=== PATIENT | male | born 1940 | race Caucasian/White ===

== ENCOUNTER 2017-04-22 01:43 | Emergency (ER) | payer OTHER ==
[~2017-04-22] VITALS: Ht 175.3 cm; Wt 95.2 kg
[~2017-04-22 01:43] MED LIST: ACET-1256 PO; CLC100 PO; CMD5 PO; COEN10CA5 PO; DEXT30TA7 PO; ENOX0.8I8 SQ; NIAC250T8 PO; OMEG10007 PO; PRED1SUS3 OPB; PRLSR20 PO; PSYL55.43 PO; ZNTT/150 PO
[2017-04-22 01:47] VITALS: BP 166/96; PULSE 66; TEMP 36.3; O2SAT 96; Ht 175.3 cm; Wt 95.2 kg
--- NOTE | 2017-04-22 02:09 | EMERGENCY ROOM VISIT NOTE ---
History Report prepared by Ronak: Liv Issa Under the Supervision of: Dr. Jonas Cowan M.D. First contact with patient: 02:02 Chief Complaint: SKIN PROBLEM Stated Complaint: ITCHING History of Present Illness The patient is a 76 year old male who presents to the Emergency Room with complaints of a persistent rash on bilateral arms and legs starting about 3 days ago. He describes it to be a burning pain with itchiness to the rash sites. The rash started after he picked some raspberries. He was also taking care of his horse a few days ago. He has been applying anti-itch and calamine lotion without relief. He denies fevers, chills, chest pain, shortness of breath , or any other complaints. He does not have a history of diabetes. He is on Coumadin for a history of DVT. Source of History: patient Onset: about 3 days ago Position: arm (bilateral), leg (bilateral) Quality: burning, other (rash; itchiness) Timing: other (persistent) Modifying Factors (Relieving): other (anti-itch and calamine lotion without relief) Associated Symptoms: No fevers, No chills, No chest pain, No SOB Review of Systems See HPI for pertinent positives & negatives. A total of 6 systems reviewed and were otherwise negative. Past Medical & Surgical Medical Problems: (1) DVT (deep venous thrombosis) (2) Kidney donor Surgical Problems: (1) Hx of cholecystectomy Family History Stroke Social History Smoking Status: Never Smoker Alcohol Use: none Drug Use: none Marital Status: Occupation Status: employed Current/Historical Medications Scheduled Coenzyme Q10 (Ubidecarenone) (Co Q 10), 10 MG PO DAILY Docusate Sodium (Colace *), 100 MG PO BID Enoxaparin (Lovenox), 150 MG SQ Q24H Fish Oil (Delmar-3), 1 CAP PO BID Methylprednisolone (Medrol Dosepak), 1 PKT PO UD Niacin (Niacin), 250 MG PO DAILY Omeprazole (Prilosec), 20 MG PO DAILY Prednisolone Acetate 1% Oph (Pred Forte 1% Oph), 1 DROP OPB DAILY Psyllium (Metamucil Powder), 1 TBS PO DAILY Ranitidine (Zantac), 150 MG PO DAILY Warfarin Sod (Coumadin *), 5 MG PO DAILY UD Scheduled PRN Acetaminophen (Tylenol), 1,000 MG PO BID PRN for Fever Dextromethorphan-Guaifenesin (Mucinex Dm), 1-2 TABS PO BID PRN for PRN Allergies Coded Allergies: No Known Allergies (Verified , 04/22/17) Physical Exam Vital Signs Date Time Temp Pulse Resp B/P (MAP) Pulse Ox O2 Delivery O2 Flow Rate FiO2 04/22/17 01:47 36.3 66 20 166/96 96 Room Air Physical Exam GENERAL: Patient is well appearing and in no acute distress. HEENT: No acute trauma, normocephalic atraumatic, mucous membranes moist, no nasal congestion, no scleral icterus. NECK: No stridor, no adenopathy, no meningismus, trachea is midline. LUNGS: No dyspnea. Clear to auscultation and equal bilaterally. No wheeze, no rhonchi. HEART: Regular rate and rhythm. No murmurs, rubs, gallops appreciated. EXTREMITIES: Normal motion all extremities, no cyanosis, no edema. NEUROLOGIC: Alert and oriented, no acute motor or sensory deficits, no focal weakness, cranial nerves grossly intact. SKIN: No jaundice, no diaphoresis. Excoriations and dermatitis/bug bites with a few areas of blisters over exposed areas of arms and legs. No cellulitis appreciated. Also covered in calamine lotion. Medical Decision & Procedures Medications Administered Medications (Trade) Dose Ordered Sig/Johanna Route Start Time Stop Time Status Last Admin Dose Admin Prednisone (PredniSONE TAB) 60 mg NOW STAT PO 04/22/17 02:10 04/22/17 02:11 DC 04/22/17 02:20 60 MG Diphenhydramine HCl (Benadryl Cap) 50 mg NOW ONCE PO 04/22/17 02:15 04/22/17 02:16 DC 04/22/17 02:20 50 MG ED Course 0202: The patient was evaluated in room A11B. A complete history and physical exam was performed. 0210: Prednisone 60 mg PO 0215: Benadryl Cap 50 mg PO 0218: Reevaluated the patient. Discussed results and discharge instructions: He verbalized understanding and agreement. The patient is ready for discharge. Medical Decision Differential: Contact Dermatitis, Viral Exanthum, Urticaria, Allergic Reaction, SJS, Toxic Epidermal Necrolysis, Erythema Multiforme, Cellulitis, Scabies, HSV, Varicella, Zoster, Eczema, Staph Scalded Skin, Fungal, amongst other pathologies entertained. 76 yr old male with diffuse rash/itching over exposed portions of arms/legs after having been picking raspberries 3 days ago. Most likely this is chigger like bites as opposed to poison but with diffuse symptoms consistent with need for oral steroids. Benadryl given in addition to prednisone. Declines pain meds. No evidence of cellulitis at this time. Not consistent with hsv/zoster. Seems unlikely viral in nature nor allergic reaction. Medication Reconcilliation Current Medication List: was personally reviewed by me Blood Pressure Screening Patient's blood pressure: Elevated blood pressure Blood pressure disposition: Elevated BP felt to be situational Impression Primary Impression: Bug bites Additional Impression: Chigger bites Scribe Attestation The scribe's documentation has been prepared under my direction and personally reviewed by me in its entirety. I confirm that the note above accurately reflects all work, treatment, procedures, and medical decision making performed by me. Departure Information Dispostion Home / Self-Care Prescriptions Methylprednisolone (MEDROL DOSEPAK) 4 Mg Kevin 1 PKT PO UD for 6 Days, #1 PKT Prov: Jonas Cowan M.D. 04/22/17 Referrals Ventura Vaughn MD (PCP) Forms HOME CARE DOCUMENTATION FORM, IMPORTANT VISIT INFORMATION, WORK / SCHOOL INSTRUCTIONS Patient Instructions ED Bite Nia, My [facility] Problem Qualifiers
[2017-04-22] MEDS ORDERED: METH4PAK PO (02:13)
== END 2017-04-22 02:23 | disposition home or self-care (01) ==
LOC: C.EDB 01:44 → C.EDA 02:23
DX: S40.861A Insect bite (nonvenomous) of right upper arm, initial encounter (principal); S40.862A Insect bite (nonvenomous) of left upper arm, initial encounter; S80.861A Insect bite (nonvenomous), right lower leg, initial encounter; S80.862A Insect bite (nonvenomous), left lower leg, initial encounter; W57.XXXA Bitten or stung by nonvenomous insect and other nonvenomous arthropods, initial encounter; Z86.718 Personal history of other venous thrombosis and embolism; Z52.4 Kidney donor; Z90.49 Acquired absence of other specified parts of digestive tract; Z82.3 Family history of stroke; Z79.01 Long term (current) use of anticoagulants

== ENCOUNTER 2023-02-28 10:37 | Inpatient (IN) ==
[2023-02-28] MEDS ORDERED: ACETAMINOPHEN 1,000 MG/100 ML VIAL IV STA (11:44)
--- NOTE | 2023-02-28 11:51 | Emergency Department Note ---
Impression & Plan Bilateral knee pain, Subtherapeutic international normalized ratio (INR), Cellulitis, AVI (acute kidney injury) ED Provider Note ED Provider Note NAME: ROSARIO WHITAKER AGE:82 SEX: Male : 1940 ARRIVES VIA: Private vehicle INFORMANT: Patient ED PROVIDER(s): Maria Guadalupe Nevarez DO CHIEF COMPLAINT: Knee pain, low INR HPI: This is an 82-year-old male presents emergency department due to concern for persistent bilateral knee pain, right greater than left. Patient states he fell directly onto his knees 10 days ago, however at that time the left knee seemed worse. He states he did follow-up with orthopedics, who does want him to have an MRI for a possible PCL injury. He states in the interim he had been taking Tylenol and using Voltaren topically. Patient states he is also had swelling and ecchymosis as he does use Coumadin due to history of blood clots. He states he did follow-up with the Coumadin clinic today and his INR was subtherapeutic at 1.7. He is concerned for possible blood clot contributing to his pain. Patient states he has been icing his knees intermittently. He denies any coming chest pain, trouble breathing, headaches, fevers, abdominal pain, vomiting, change in urine or stools. Patient states he has pain with changing position although once he is up and moving the pain seems slightly improved. Patient is currently taking antibiotics as he was seen here over the weekend in an area that was concerning for possible abscess was drained, however found to be only blood. PAST MEDICAL HISTORY:See Below PAST SURGICAL HISTORY:See Below FAMILY HISTORY:See Below SOCIAL HISTORY:See Below HOME MEDICATIONS:See Below ALLERGIES:See Below VITALS:See Below PHYSICAL EXAMINATION: GENERAL: alert, well appearing, well nourished, no distress, non-toxic EYE EXAM: normal conjunctiva, PERRL and EOM's grossly intact NECK: supple, no nuchal rigidity, no adenopathy, non-tender LUNGS: Clear to auscultation. Normal chest wall mechanics, no w/r/r HEART: no murmurs, S1 normal and S2 normal ABDOMEN: abdomen soft, non-tender, normo-active bowel sounds, no masses, no rebound or guarding. SKIN: no rashes, petechiae, orbruising UPPER EXTREMITIES: upper extremities are grossly normal. FROM, nml pulses b/l. LOWER EXTREMITIES: b/l FROM despite edema/pain, nml pulses b/l. Bilateral edema/effusions noted at the knees, surrounding resolving ecchymosis as well as distal areas of ecchymosis near ankles most likely from recently described fall, erythema noted bilaterally although seems worse along the right knee with appearance of extension superiorly along the medial aspect, 1+ b/l LE edema. NEURO EXAM: Normal sensorium, cranial nerves II-XII grossly intact, normal s peech, no facial droop,nogross weakness of arms, no gross weakness of legs. Gross sensation intact. No ataxia. Vital Signs: reviewed and remarkable Differential Diagnosis: Fracture, subluxation, dislocation, contusion, ligamentous injury, neur ovascular, compartment syndrome, rhabdomyolysis, as well as other pathologies. MEDICAL DECISION MAKING: This is an 82-year-old male presents emergency room due to concern for persistent knee pain. Patient with recent fall 10 days prior. Was seen and evaluated here with aspiration of what they thought was an abscess but turned out to be hematoma. Patient is on Coumadin daily although today at his Coumadin clinic visit he was noted to be subtherapeutic at 1.7. Patient still with significant edema and appearance of likely cellulitis despite 48 hours of antibiotics as previously prescribed. Labs drawn and sent, IV established, patient sent for bilateral lower extremity Dopplers which were negative for acute DVT. Patient noted to have AVI, likely from the addition of Bactrim recently. Despite 48 hours of antibiotics, patient appeared to have cellulitis extending up the medial aspect of the right lower extremity superior to the right knee. Given patient with full range of motion without significant pain while at rest I would lower suspicion for occult septic arthritis although did discuss with him risks of this. We discussed failed improvement of his cellulitis despite 2 days of antibiotics. Patient denied fever, and has no significant leukocytosis. Patient given IV cefepime here as a precaution. Case discussed with hospitalist team for additional evaluation and management. Consultation(s): 1529: Discussed with Tigist Jarquin PA-C, [facility] hospitalist team. ER Treatment Provided: See below Diagnostics Interpreted By Me: -ECG: [] -Cardiac Monitoring: An order was placed for continuous cardiac monitoring. The monitor shows a rate of [] with [] rhythm. -Laboratory studies: As stated above and show below. -Imaging studies: [] Triage Nursing Note Reviewed Prior/Outside Records Reviewed -outpatient Ortho visit and x-ray reviewed Past Med/Surg History Medical History Chronic deep vein thrombosis (DVT) CKD (chronic kidney disease), stage III DVT (deep venous thrombosis) Dyslipidemia HTN (hypertension) Kidney donor TYESHA (obstructive sleep apnea) Surgical History H/O cornea transplant Hx of cholecystectomy Family History Other Heart disease Social History (Updated 02/28/23 @ 17:49 by Tigist Jarquin PA-C) Smoking Status: Never smoker Hx Alcohol Use: No Hx Substance Use: No Preferred Language: Kazakh Feels Safe at Home: Yes Allergies Allergies Allergy/AdvReac Type Severity Reaction Status Date / Time No Known Allergies Allergy Unknown Verified 02/25/23 16:15 Home Meds Home Medications Medication Instructions Recorded Confirmed acetaminophen 500 mg tablet 1,000 mg PO BID PRN PAIN/FEVER 02/25/23 02/28/23 (Tylenol Extra Strength) allopurinol 100 mg tablet 100 mg PO BID 02/25/23 02/28/23 amlodipine 2.5 mg tablet 2.5 mg PO DAILY 02/25/23 02/28/23 atorvastatin 10 mg tablet 10 mg PO DAILY 02/25/23 02/28/23 cholecalciferol (vitamin D3) 25 25 mcg PO Q OTHER DAY 02/25/23 02/28/23 mcg (1,000 unit) capsule (Vitamin D3) docusate sodium 50 mg capsule 50 mg PO DAILY 02/25/23 02/28/23 gabapentin 100 mg capsule 200 mg PO BID 02/25/23 02/28/23 losartan 25 mg tablet 25 mg PO DAILY 02/25/23 02/28/23 omega-3 fatty acids-fish oil 684 1 cap PO DAILY 02/25/23 02/28/23 mg-1,200 mg capsule,delayed release omeprazole 20 mg capsule,delayed 20 mg PO DAILYBB 02/25/23 02/28/23 release prednisolone acetate 1 % eye 1 drp OPB HS 02/25/23 02/28/23 drops,suspension psyllium husk 3.4 gram/5.4 gram 1 tbsp PO BID 02/25/23 02/28/23 oral powder (Metamucil) vitamin E 268 mg (400 unit) capsule 268 mg PO DAILY 02/25/23 02/28/23 warfarin 5 mg tablet See Rx Instructions .Route .COMPLEX 02/25/23 02/28/23 Previous Rx's Medication Instructions Recorded cephalexin 500 mg capsule 500 mg PO Q6H 10 days #40 caps 02/25/23 oxycodone 5 mg tablet 5 mg PO Q6H PRN pain #15 tabs 02/25/23 sulfamethoxazole 800 1 tab PO BID #20 tabs 02/25/23 mg-trimethoprim 160 mg tablet (Bactrim DS) Results & Data (ED) Vital Signs Vital Signs - 24 hr 02/28/23 10:56 02/28/23 11:33 02/28/23 15:02 Temperature 36.7 C Temperature Source Temporal Artery Scan Pulse Rate 94 H Pulse Rate [Finger] 82 80 Respiratory Rate 20 17 18 Respiratory Effort / Characteristics Non-Labored Spontaneous Respiratory Depth Normal Blood Pressure 137/82 Blood Pressure [Right Arm] 130/80 137/67 Blood Pressure Mean 100 Blood Pressure Mean [Right Arm] 96 90 Pulse Oximetry 94 93 92 Oxygen Delivery Method Room Air Room Air Room Air Sepsis New/Unexplained Change in Mental Status N/A Sepsis Action Taken by Nursing No Action Required Laboratory Data 02/28/23 12:41 02/28/23 12:41 Lab Results 02/28/23 02/28/23 02/28/23 Range/Units 12:41 12:41 12:41 WBC 6.88 (4.8-10.8) K/ul RBC 3.82 L (4.70-6.10) M/uL Hgb 11.3 L (14.0-18.0) g/dl Hct 33.4 L (42.0-52.0) % MCV 87.4 (80.0-100.0) fL MCH 29.6 (25.0-34.0) pg MCHC 33.8 (32.0-36.0) g/dL RDW Std Deviation 47.4 H (36.4-46.3) fL RDW Coeff of Oliva 14.7 H (11.5-14.5) % Plt Count 153 (130-400) K/uL MPV 9.9 (9.4-12.4) fL Immature Gran % (Auto) 0.6 % Neut % (Auto) 48.1 % Lymph % (Auto) 20.2 % [place] % (Auto) 30.5 % Eos % (Auto) 0.3 % Baso % (Auto) 0.3 % Neut # (Auto) 3.31 (1.40-6.50) K/uL Lymph # (Auto) 1.39 (1.2-3.4) K/uL [place] # (Auto) 2.10 H (0.11-0.59) K/uL Eos # (Auto) 0.02 (0-0.50) K/uL Baso # (Auto) 0.02 (0-0.2) K/uL Immature Gran # (Auto) 0.04 (0.01-0.20) K/uL ESR 36 H (0-20) mm/hr PT (9.0-12.0) Seconds INR (0.9-1.1) Sodium 133 L (136-145) mmol/L Potassium 4.6 (3.5-5.1) mmol/L Chloride 104 (98-107) mmol/L Carbon Dioxide 23 (21-32) mmol/L Anion Gap 6 (3-11) BUN 38 H (6-23) mg/dl Creatinine 1.75 H (0.6-1.4) mg/dl Est Cr Clr Drug Dosing 37.8 ml/min Est GFR ( Amer) 41.7 ml/min Est GFR (Non-Af Amer) 36.0 ml/min BUN/Creatinine Ratio 21.7 H (10-20) Glucose 102 H (70-99(Fasting)) mg/dl Calcium 8.3 L (8.6-10.3) mg/dl Total Bilirubin 0.7 (0.2-1.0) mg/dl AST 15 (13-39) U/L ALT 17 (7-52) U/L Alkaline Phosphatase 68 (34-104) U/L C-Reactive Protein 11.77 H (0-0.5) mg/dl Total Protein 6.5 (6.0-8.3) gm/dl Albumin 3.6 (3.4-5.0) gm/dl Globulin 2.9 (2.5-4.0) gm/dl Albumin/Globulin Ratio 1.2 (0.9-2) SARS-CoV-2, RNA, NAAT (NEGATIVE) 02/28/23 02/28/23 Range/Units 12:41 15:44 WBC (4.8-10.8) K/ul RBC (4.70-6.10) M/uL Hgb (14.0-18.0) g/dl Hct (42.0-52.0) % MCV (80.0-100.0) fL MCH (25.0-34.0) pg MCHC (32.0-36.0) g/dL RDW Std Deviation (36.4-46.3) fL RDW Coeff of Oliva (11.5-14.5) % Plt Count (130-400) K/uL MPV (9.4-12.4) fL Immature Gran % (Auto) % Neut % (Auto) % Lymph % (Auto) % [place] % (Auto) % Eos % (Auto) % Baso % (Auto) % Neut # (Auto) (1.40-6.50) K/uL Lymph # (Auto) (1.2-3.4) K/uL [place] # (Auto) (0.11-0.59) K/uL Eos # (Auto) (0-0.50) K/uL Baso # (Auto) (0-0.2) K/uL Immature Gran # (Auto) (0.01-0.20) K/uL ESR (0-20) mm/hr PT 18.2 H (9.0-12.0) Seconds INR 1.7 H (0.9-1.1) Sodium (136-145) mmol/L Potassium (3.5-5.1) mmol/L Chloride (98-107) mmol/L Carbon Dioxide (21-32) mmol/L Anion Gap (3-11) BUN (6-23) mg/dl Creatinine (0.6-1.4) mg/dl Est Cr Clr Drug Dosing ml/min Est GFR ( Amer) ml/min Est GFR (Non-Af Amer) ml/min BUN/Creatinine Ratio (10-20) Glucose (70-99(Fasting)) mg/dl Calcium (8.6-10.3) mg/dl Total Bilirubin (0.2-1.0) mg/dl AST (13-39) U/L ALT (7-52) U/L Alkaline Phosphatase (34-104) U/L C-Reactive Protein (0-0.5) mg/dl Total Protein (6.0-8.3) gm/dl Albumin (3.4-5.0) gm/dl Globulin (2.5-4.0) gm/dl Albumin/Globulin Ratio (0.9-2) SARS-CoV-2, RNA, NAAT NEGATIVE (NEGATIVE) Administered Medications Sodium Chloride (Nss 1000ml) 1,000 mls @ 100 mls/hr IV .Q10H UMM Stop: 03/01/23 00:33 Last Infusion: 02/28/23 19:11 Dose: 100 mls/hr Documented By: Infusion: 02/28/23 17:08 Dose: 0 mls/hr Documented By: Infusion: 02/28/23 16:02 Dose: 250 mls/hr Documented By: Admin: 02/28/23 14:48 Dose: Not Given Documented By: Admin: 02/28/23 12:07 Dose: 250 mls/hr Documented By: Discontinued Medications Acetaminophen (Ofirmev) 1,000 mg in 100 mls @ 400 mls/hr IV NOW STA Stop: 02/28/23 11:58 Last Infusion: 02/28/23 12:27 Dose: 0 mls/hr Documented By: Admin: 02/28/23 12:07 Dose: 400 mls/hr Documented By: Cefepime HCl (Maxipime) 2,000 mg in 20 mls @ 5 mls/min IV NOW STA; Protocol Stop: 02/28/23 15:13 Last Admin: 02/28/23 15:43 Dose: 5 mls/min Documented By: Imaging Data Radiologist's Impression: Venous Doppler Study 02/28/23 11:44 ULTRASOUND BILATERAL LOWER EXTREMITY VENOUS CLINICAL HISTORY: Lower extremity pain and edema COMPARISON STUDY: Left lower extremity venous ultrasound dated 02/25/2023. TECHNIQUE: Real-time, grayscale, and color Doppler sonography of the deep veins of the right and left lower extremity was performed from the inguinal crease to the calf. Compression and augmentation were utilized. FINDINGS: Right lower extremity: There is trace chronic thrombus in the proximal right superficial femoral vein. The common femoral, superficial femoral, and popliteal veins are otherwise patent and normally compressible. The greater saphenous vein and the profunda femoris vein at the junction with the common femoral vein are clear. The visualized calf veins are patent. Left lower extremity: There is no sonographic evidence of deep venous thrombosis in the left lower extremity. The common femoral, superficial femoral, and popliteal veins are patent and normally compressible. The greater saphenous vein and the profunda femoris vein at the junction with the common femoral vein are clear. The visualized calf veins are patent. Soft tissue edema is present in both calves. An indeterminate complex hypoechoic collection in the soft tissues of the medial left knee is similar to previous. This measures 6.8 x 2.1 x 5.1 cm. No internal flow was shown on color imaging. IMPRESSION: 1. There is no sonographic evidence of acute deep venous thrombosis in the right or left lower extremity. 2. Trace chronic thrombus is seen in the right superficial femoral vein. 3. Lower extremity edema. 4. A 6.8 cm complex hypoechoic nonvascular collection in the soft tissues medial to the left patella is similar to the 02/25/2023 examination. This likely represents a hematoma. Clinical correlation will be essential and clinical follow-up to resolution will be required ACT 112: Negative or not required by law. Electronically signed by: Jose Vides M.D. 02/28/2023 2:36 PM Discharge Plan Visit Data Chief Complaint: Leg Injury/Pain Stated Complaint: LEG PAIN IN LEFT AND RIGHT ED Provider: Maria Guadalupe Nevarez Discharge Problem: Bilateral knee pain, Subtherapeutic international normalized ratio (INR), Cellulitis, AVI (acute kidney injury) Patient Disposition: Admitted As Inpatient Discharge Instructions Interventions: ED Discharge Assessment Last Done: 02/28/23 18:56
[2023-02-28] MEDS: SODIUM CHLORIDE 0.9% 1000ML 1,000 ML IV SCH ×2 (12:07→14:48)
[2023-02-28 13:19] LABS: Basophils # (auto) 0.02 K/uL (0-0.2); Basophils % (auto) 0.3 %; Eosinophils # (auto) 0.02 K/uL (0-0.50); Eosinophils % (auto) 0.3 %; Hematocrit (blood only) 33.4 % (42.0-52.0); Hemoglobin 11.3 g/dl (14.0-18.0); Immature Granulocytes # (auto) 0.04 K/uL (0.01-0.20); Immature Granulocytes % (auto) 0.6 %; Lymphocytes # (auto) 1.39 K/uL (1.2-3.4); Lymphocytes % (auto) 20.2 %; Mean Corpuscular Hemoglobin 29.6 pg (25.0-34.0); Mean Corpuscular Hgb Conc 33.8 g/dL (32.0-36.0); Mean Corpuscular Volume 87.4 fL (80.0-100.0); Mean Platelet Volume 9.9 fL (9.4-12.4); Monocytes % (auto) 30.5 %; Neutrophils # (auto) 3.31 K/uL (1.40-6.50); Neutrophils % (auto) 48.1 %; Platelet Count 153 K/uL (130-400); RDW Coefficient of Variation 14.7 % (11.5-14.5); RDW Standard Deviation 47.4 fL (36.4-46.3); Red Blood Count 3.82 M/uL (4.70-6.10); White Blood Count 6.88 K/ul (4.8-10.8)
[2023-02-28 13:31] LABS: Albumin Globulin Ratio 1.2 (0.9-2); Albumin Level 3.6 gm/dl (3.4-5.0); BUN Creatinine Ratio 21.7 (10-20); Bilirubin,Total 0.7 mg/dl (0.2-1.0); C Reactive Protein 11.77 mg/dl (0-0.5); Calcium 8.3 mg/dl (8.6-10.3); Creatinine Clr Calc Pharmacy 37.8 ml/min; Est GFR (African American) 41.7 ml/min; Globulin 2.9 gm/dl (2.5-4.0); Potassium 4.6 mmol/L (3.5-5.1); Total Protein 6.5 gm/dl (6.0-8.3)
[2023-02-28 13:39] LABS: INR 1.7 (0.9-1.1); Prothrombin Time 18.2 Seconds (9.0-12.0)
--- NOTE | 2023-02-28 14:37 | Ultrasound Report ---
ULTRASOUND BILATERAL LOWER EXTREMITY VENOUS CLINICAL HISTORY: Lower extremity pain and edema COMPARISON STUDY: Left lower extremity venous ultrasound dated 02/25/2023. TECHNIQUE: Real-time, grayscale, and color Doppler sonography of the deep veins of the right and left lower extremity was performed from the inguinal crease to the calf. Compression and augmentation wer e utilized. FINDINGS: Right lower extremity: There is trace chronic thrombus in the proximal right superficial femoral vein . The common femoral, superficial femoral, and popliteal veins are otherwise patent and normally comp ressible. The greater saphenous vein and the profunda femoris vein at the junction with the common fe moral vein are clear. The visualized calf veins are patent. Left lower extremity: There is no sonographic evidence of deep venous thrombosis in the left lower ex tremity. The common femoral, superficial femoral, and popliteal veins are patent and normally chris sible. The greater saphenous vein and the profunda femoris vein at the junction with the common femor al vein are clear. The visualized calf veins are patent. Soft tissue edema is present in both calves. An indeterminate complex hypoechoic collection in the so ft tissues of the medial left knee is similar to previous. This measures 6.8 x 2.1 x 5.1 cm. No inter nal flow was shown on color imaging. IMPRESSION: 1. There is no sonographic evidence of acute deep venous thrombosis in the right or left lower extrem ity. 2. Trace chronic thrombus is seen in the right superficial femoral vein. 3. Lower extremity edema. 4. A 6.8 cm complex hypoechoic nonvascular collection in the soft tissues medial to the left patella is similar to the 02/25/2023 examination. This likely represents a hematoma. Clinical correlation will be essential and clinical follow-up to resolution will be required ACT 112: Negative or not required by law. Electronically signed by: Jose Vides M.D. 02/28/2023 2:36 PM
[2023-02-28] MEDS ORDERED: CEFEPIME 2,000 MG/20 ML VIAL IV STA (15:10)
[2023-02-28] MEDS ORDERED: VANCOMYCIN CONSULT ACTIVE PRN (16:32)
--- NOTE | 2023-02-28 16:57 | History & Physical Report ---
Date of Service February 28, 2023 Assessment & Plan (1) Hematoma of left knee region: (2) Bilateral knee pain: (3) Cellulitis: (4) Chronic deep vein thrombosis (DVT): (5) Subtherapeutic international normalized ratio (INR): (6) Acute kidney injury superimposed on chronic kidney disease: (7) HTN (hypertension): (8) TYESHA (obstructive sleep apnea): (9) Acute blood loss anemia: Plan This is an 82-year-old male with PMH of history of DVT on Coumadin, CKD 3, acquired solitary kidney, hypertension, first-degree AV block, gout, hyperlipidemia, sleep apnea on CPAP and other medical problems listed below who presents with ongoing pain and swelling of both knees. Hemarthrosis of bilateral knees BLE cellulitis Worsening swelling and pain despite PO abx, icing ESR and CRP elevation, no leukocytosis, no e/o DVT on venous doppler Concern for hemarthrosis and septic joint although clinically stable, does not meet sepsis criteria Obtained blood cx, continue abx coverage with rocephin, vanco Additional imaging is needed - anticipate improvement of renal function overnight prior to imaging with contrast dye Ortho service consulted Will make NPO at midnight in case washout needed Hold coumadin for now Fall precautions PT/OT evaluation Acute kidney injury superimposed on CKD Cr 1.75 (baseline ~ low 1s) Likely 2/2 Bactrim, keflex. Appears euvolemic Hold PO abx and losartan. 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 Hold coumadin for now until ortho evaluates HTN Normotensive. Continue amlodipine, holding losartan TYESHA CPAP HS DVT Ppx: holding coumadin for now Code status: FULL PCP: Johana Dispo: Admitted to med/surg Patient seen in collaboration with Dr. Dee. Please see addendum. I spent a total of 75 minutes coordinating, documenting, and providing care for this patient excluding time spent in the performance of separately billed services. History of Present Illness Chief Complaint: Knee pain, swelling Primary Care Provider: Ventura Vaughn MD This is an 82-year-old male with PMH of history of DVT on Coumadin, CKD 3, acquired solitary kidney, hypertension, first-degree AV block, gout, hyperlipidemia, sleep apnea on CPAP and other medical problems listed below who presents with ongoing pain and swelling of both knees. Patient had a fall on 02/18 and landed on both knees on concrete. Was seen in outpatient setting by [facility] orthopedics, who feel left injury may have resulted in possible PCL rupture and has an MRI scheduled in a few weeks to confirm PCL injury. Small hematoma noted and instructed to continue ice and Voltaren gel. Pain and swelling persisted despite patient following this regimen, so he presented to ED on 02/25 and had a joint aspiration performed by ED physician that was only consistent with hematoma and not purulent material, per chart review. Was discharged home on antibiotic course of Keflex and Bactrim for possible mirian lulitis but pain and swelling have persisted and even worsened, so returning to ED today. Pain is most severe with positional change such as lying to sitting or when he steps out of bed and places weight on both extremities. States that once he gets moving, pain is not very severe with ambulation any is still able to bend his knees without much issue. Taking Coumadin for over 20 years for history of DVT. Was seen by anticoagulation clinic this morning, who wanted to continue his current dose schedule of 2.5 on Monday and 5 every other day. Denies any fever, chills, lightheadedness, chest pain, shortness of breath, nausea, vomiting, abdominal pain, dysuria, diarrhea or constipation. Allergies Allergy/AdvReac Type Severity Reaction Status Date / Time No Known Allergies Allergy Unknown Verified 02/25/23 16:15 Home Medications Medication Instructions Recorded Confirmed Type acetaminophen 500 mg tablet 1,000 mg PO BID PRN PAIN/FEVER 02/25/23 02/28/23 History (Tylenol Extra Strength) allopurinol 100 mg tablet 100 mg PO BID 02/25/23 02/28/23 History amlodipine 2.5 mg tablet 2.5 mg PO DAILY 02/25/23 02/28/23 History atorvastatin 10 mg tablet 10 mg PO DAILY 02/25/23 02/28/23 History cephalexin 500 mg capsule 500 mg PO Q6H 10 days #40 caps 02/25/23 02/28/23 Rx cholecalciferol (vitamin D3) 25 25 mcg PO Q OTHER DAY 02/25/23 02/28/23 History mcg (1,000 unit) capsule (Vitamin D3) docusate sodium 50 mg capsule 50 mg PO DAILY 02/25/23 02/28/23 History gabapentin 100 mg capsule 200 mg PO BID 02/25/23 02/28/23 History losartan 25 mg tablet 25 mg PO DAILY 02/25/23 02/28/23 History omega-3 fatty acids-fish oil 684 1 cap PO DAILY 02/25/23 02/28/23 History mg-1,200 mg capsule,delayed release omeprazole 20 mg capsule,delayed 20 mg PO DAILYBB 02/25/23 02/28/23 History release oxycodone 5 mg tablet 5 mg PO Q6H PRN pain #15 tabs 02/25/23 02/28/23 Rx prednisolone acetate 1 % eye 1 drp OPB HS 02/25/23 02/28/23 History drops,suspension psyllium husk 3.4 gram/5.4 gram 1 tbsp PO BID 02/25/23 02/28/23 History oral powder (Metamucil) sulfamethoxazole 800 1 tab PO BID #20 tabs 02/25/23 02/28/23 Rx mg-trimethoprim 160 mg tablet (Bactrim DS) vitamin E 268 mg (400 unit) capsule 268 mg PO DAILY 02/25/23 02/28/23 History warfarin 5 mg tablet See Rx Instructions .Route .COMPLEX 02/25/23 02/28/23 History Past Med/Surg History Medical History Chronic deep vein thrombosis (DVT) CKD (chronic kidney disease), stage III DVT (deep venous thrombosis) Dyslipidemia HTN (hypertension) Kidney donor TYESHA (obstructive sleep apnea) Surgical History H/O cornea transplant Hx of cholecystectomy Family History Other Heart disease Social History (Updated 02/28/23 @ 17:49 by Tigist Jarquin PA-C) Smoking Status: Never smoker Do You Dip or Chew Tobacco: No; Hx Alcohol Use: No Hx Substance Use: No Preferred Language: Mongolian Communication Ability: Effective Dance Critic Required: No Beliefs That Will Affect Care: None Current Living Situation: Significant Other Other Information That Helps Us Care for You: No Feels Safe at Home: Yes Safety Concerns: Feels Safe At This Time Assistive Devices: Hearing Aid - Bilateral Review of Systems Review of Systems: At least ten systems reviewed and negative except as noted in the HPI. Physical Exam Physical Exam: General Appearance: WD/WN, vitals as above, NAD, sitting up in bed, pleasant, conversing easily Head: normocephalic, atraumatic Eyes: normal inspection, PERRL, conjunctivae normal, anicteric sclerae ENT: external ear and nose normal, oropharynx normal Neck: normal visual inspection, trachea midline, no thyromegaly Respiratory: normal respiratory effort, lungs clear to auscultation, no wheeze, rales, rhonchi. No accessory muscle use Cardiovascular: regular rate, rhythm, no murmur, normal peripheral pulses, no BLE edema. Vessels: no JVD Chest: normal inspection of chest Abdomen/GI: normal bowel sounds, soft, nontender, no hepatosplenomegaly Extremities/Musculoskeletal: no cyanosis or clubbing, extremities motor strength 5/5 + Bilateral knees with edema, TTP with hematomas overlying patella. Erythematous streaking over knee and extending proximally to thigh, warm to touch Neurologic: PERRL, EOMI, accommodation nl, no face palsy, no dysarthria, CN's II-XI intact bilaterally and moves all extremities Psychiatric: A+Ox3, euthymic affect Skin: no rashes, normal color, warm/dry Results & Data Results & Data Vital Signs (Past 12 Hours) Vital Signs Temp Pulse Pulse Resp BP BP Pulse Ox 02/28/23 15:02 80 18 137/67 92 02/28/23 11:33 82 17 130/80 93 02/28/23 10:56 36.7 C 94 H 20 137/82 94 O2 Del Method 02/28/23 15:02 Room Air 02/28/23 11:33 Room Air 02/28/23 10:56 Room Air Laboratory Results Short CBC 02/28/23 Range/Units 12:41 WBC 6.88 (4.8-10.8) K/ul Hgb 11.3 L (14.0-18.0) g/dl Hct 33.4 L (42.0-52.0) % Plt Count 153 (130-400) K/uL BMP 02/28/23 12:41 Sodium 133 L Potassium 4.6 Chloride 104 Carbon Dioxide 23 BUN 38 H Creatinine 1.75 H Glucose 102 H Calcium 8.3 L Liver Function 02/28/23 Range/Units 12:41 Total Bilirubin 0.7 (0.2-1.0) mg/dl AST 15 (13-39) U/L ALT 17 (7-52) U/L Alkaline Phosphatase 68 (34-104) U/L Albumin 3.6 (3.4-5.0) gm/dl Diagnostic Findings Venous Doppler Study 02/28/23 11:44 ULTRASOUND BILATERAL LOWER EXTREMITY VENOUS CLINICAL HISTORY: Lower extremity pain and edema COMPARISON STUDY: Left lower extremity venous ultrasound dated 02/25/2023. TECHNIQUE: Real-time, grayscale, and color Doppler sonography of the deep veins of the right and left lower extremity was performed from the inguinal crease to the calf. Compression and augmentation were utilized. FINDINGS: Right lower extremity: There is trace chronic thrombus in the proximal right superficial femoral vein. The common femoral, superficial femoral, and popliteal veins are otherwise patent and normally compressible. The greater saphenous vein and the profunda femoris vein at the junction with the common femoral vein are clear. The visualized calf veins are patent. Left lower extremity: There is no sonographic evidence of deep venous thrombosis in the left lower extremity. The common femoral, superficial femoral, and popliteal veins are patent and normally compressible. The greater saphenous vein and the profunda femoris vein at the junction with the common femoral vein are clear. The visualized calf veins are patent. Soft tissue edema is present in both calves. An indeterminate complex hypoechoic collection in the soft tissues of the medial left knee is similar to previous. This measures 6.8 x 2.1 x 5.1 cm. No internal flow was shown on color imaging. IMPRESSION: 1. There is no sonographic evidence of acute deep venous thrombosis in the right or left lower extremity. 2. Trace chronic thrombus is seen in the right superficial femoral vein. 3. Lower extremity edema. 4. A 6.8 cm complex hypoechoic nonvascular collection in the soft tissues medial to the left patella is similar to the 02/25/2023 examination. This likely represents a hematoma. Clinical correlation will be essential and clinical follow-up to resolution will be required ACT 112: Negative or not required by law. Electronically signed by: Jose Vides M.D. 02/28/2023 2:36 PM Code Status & VTE Plan VTE Prophylaxis Plan VTE Prophylaxis will be ordered: Yes Supervising Physician Co-Signing Physician Notes I have seen and examined the patient and have discussed the case with the provider above. I agree with the assessment and plan as stated. 82 yo M on Coumadin with a traumatic injury to his knees presents with increased pain and redness to his knees bilaterally. As noted above, he was initially seen by ortho who felt he had a PCL injury, however, he presented to the ER on 02/25 after persistent pain and swelling. Joint aspiration performed at that time and he was sent home on Keflex and Bactrim. He returns after failing outpatient therapy, now with increased redness and warmth around the L>R knee. On physical he is not septic appearing and pain is fairly well controlled. He has good ROM of the knees bilaterally. There is erythema streaking proximal and medial to the knee and up the leg. The left knee anteriorly has what appears to be a swelling, possibly consistent with a hematoma. There is stiffness and pain with knee flexion on the left but both knees are affected and swollen. Physical exam otherwise as stated above. No overt leukocytosis with anemia (11.3/33.4) dropping 2 grams Hb in the past 3 days, and INR is within the therapeutic window. 1. Hemarthosis of the left knee, and possibly the right with overlying cellulitis and bilateral knee pain 2. 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 Acute on chronic CKD 4. Acute blood loss anemia related to warfarin use Overall trauma to the knees with resultant hemarthosis seen on joint aspiration 3 days ago, now with a two gram drop in Hb and increased pain swelling and cellulitis refractory to outpatient antibiotic. Bactrim is likely contributing to elevated creatinine. Given normal saline. Started on vancomycin and Rocephin and blood cultures are pending. Orthopedics has been consulted. Will trend CBC and BMP in am. Cont pain control efforts and ultimately he will need to be evaluated by therapy. He has a chronic DVT and takes Coumadin indefinitely, but with ongoing acute blood loss anemia, we will hold anticoagulation and monitor. DO Luiz
[2023-02-28] MEDS ORDERED: POLYETHYLENE (MIRALAX) 17 GM PACK PO PRN (18:58)
[2023-02-28] MEDS ORDERED: ONDANSETRON INJ 2 MG/ML 2 ML VIAL IV PRN (18:58)
[2023-02-28] MEDS ORDERED: oxyCODONE HCL IR 5 MG TAB (IMMEDIATE RELEASE) PO PRN (18:58)
[2023-02-28] MEDS ORDERED: VANCOMYCIN HCL 2,250 MG in SODIUM CHLORIDE 0.9% 500 ML IV STA (19:02)
--- NOTE | 2023-02-28 19:40 | Pharmacy Report ---
Pharmacy PK ABX Note - Date of Service February 28, 2023 - Assessment and Plan Assessment 82 year old M receiving IV Vancomycin and ceftriaxone for treatment of BLE cellulitis, hemarthrosis. Day # 1 of antimicrobial therapy. Plan Vancomycin * Loading dose: 2250 mg (~24mg/kg) IV x 1 * No maintenance dose ordered at this time due to AVI; anticipate rapidly changing renal function * Random level ordered for: 03/01/23 with AM labs Pharmacy will continue to follow and will adjust dose/frequency as necessary. Thank you. Pharmacy has transitioned to AUC monitoring for vancomycin. AUC/GERARDO is the preferred PK/PD target and is associated with decreased risk of nephrotoxicity compared to traditional trough targets.
[2023-02-28] MEDS: allopurinoL 100 MG TAB PO SCH (21:22)
[2023-02-28] MEDS: GABAPENTIN 100 MG CAP PO SCH (21:22)
[2023-02-28] MEDS: prednisoLONE acetate 1% OP SUSP 5 ML BTL OPB SCH (21:22)
[2023-02-28] MEDS: ACETAMINOPHEN 325 MG TAB PO PRN (21:39)
[2023-02-28] MEDS: cefTRIAXone SODIUM 2,000 MG in DEXTROSE 5% 50 ML IV SCH (23:15)
[2023-03-01] MEDS: ACETAMINOPHEN 325 MG TAB PO PRN ×2 (01:32→09:03)
[2023-03-01] MEDS: PANTOprazole 40 MG TAB PO SCH (05:41)
[2023-03-01 07:50] LABS: Hematocrit (blood only) 35.3 % (42.0-52.0); Hemoglobin 11.7 g/dl (14.0-18.0); Mean Corpuscular Hemoglobin 28.9 pg (25.0-34.0); Mean Corpuscular Hgb Conc 33.1 g/dL (32.0-36.0); Mean Corpuscular Volume 87.2 fL (80.0-100.0); Mean Platelet Volume 9.7 fL (9.4-12.4); Platelet Count 170 K/uL (130-400); RDW Coefficient of Variation 14.6 % (11.5-14.5); RDW Standard Deviation 47.3 fL (36.4-46.3); Red Blood Count 4.05 M/uL (4.70-6.10); White Blood Count 6.38 K/ul (4.8-10.8)
[2023-03-01 08:00] LABS: INR 1.6 (0.9-1.1); Prothrombin Time 16.6 Seconds (9.0-12.0)
[2023-03-01] MEDS: allopurinoL 100 MG TAB PO SCH ×2 (08:11→20:08)
[2023-03-01] MEDS: GABAPENTIN 100 MG CAP PO SCH ×2 (08:11→20:08)
[2023-03-01] MEDS: amLODIPine BESYLATE 5 MG TAB PO SCH (08:11)
[2023-03-01] MEDS: DOCUSATE SODIUM 100 MG CAP PO SCH (08:11)
[2023-03-01] MEDS: ATORVASTATIN 10 MG TAB PO SCH (08:11)
[2023-03-01 08:12] LABS: Calcium 8.7 mg/dl (8.6-10.3); Potassium 4.3 mmol/L (3.5-5.1)
[2023-03-01] MEDS: TOCOPHERYL, DL-ALPHA 400 UNITS 180 MG CAP PO SCH (08:13)
[2023-03-01 08:18] LABS: BUN Creatinine Ratio 19.4 (10-20); Creatinine Clr Calc Pharmacy 41.4 ml/min; Est GFR (African American) 46.5 ml/min; Est GFR (Non-African American) 40.1 ml/min
--- NOTE | 2023-03-01 08:47 | Pharmacy Report ---
Pharmacy PK ABX Note - Date of Service March 01, 2023 - Assessment and Plan Laboratory Tests 02/25/23 02/28/23 03/01/23 14:58 12:41 07:14 Creatinine 1.15 1.75 H 1.60 H Assessment 82 year old M receiving IV Vancomycin and ceftriaxone for treatment of BLE cellulitis, hemarthrosis. WBC wnl, afebrile, blood cultures pending. Day # 2 of antimicrobial therapy. Plan Vancomycin * Current regimen: 2250mg mg IV x 1 dose @ 02/28 * Random level obtained this AM resulted as 12.3 mcg/mL. * SCr improved from 1.75 --> 1.6, baseline 1.1 * Begin Vancomycin 1250mg IV Q24 hours at this time. * Predicted AUC at steady state: 540 mg/L.hr * Repeat random level ordered for: 03/02/23 due to AVI; anticipate rapidly changing renal function Pharmacy will continue to follow and will adjust dose/frequency as necessary. Thank you. Pharmacy has transitioned to AUC monitoring for vancomycin. AUC/GERARDO is the preferred PK/PD target and is associated with decreased risk of nephrotoxicity compared to traditional trough targets.
[2023-03-01] MEDS ORDERED: VANCOMYCIN HCL 1,250 MG in SODIUM CHLORIDE 0.9% 250 ML IV SCH (09:00)
[2023-03-01] MEDS ORDERED: CHOLECALCIFEROL 1,000 UNITS 25 MCG TAB PO SCH (09:00)
--- NOTE | 2023-03-01 10:15 | Orthopedic Consultation ---
Date of Consultation March 01, 2023 Assessment & Plan (1) Hematoma of left knee region: With his permission the area of swelling on the medial left knee as well as the pretibial right knee were prepped with alcohol and then using separate syringes and preparations the areas were aspirated. I did the one on the left and Audrey Rubio did 1 on the right. Audrey aspirated 1 cc of blood from the right knee pretibial area and I got a drop of blood from the left knee medial area. There was no purulence noted pressure was held until the bleeding had stopped. Labs are noted. He is afebrile. Inflammatory markers are elevated. The eschar on the right knee was elevated. Benign underneath with granulating tissue. Band-Aids were applied. I suspect that he has bilateral knee hematomas secondary to his fall with resultant inflammation. There could be some early cellulitis. He reports being on an oral antibiotics since Monday. He is on IV antibiotics here. He does not have septic arthritis and there is no abscesses needed to be drained. These are hematomas. This should get better on their own and we can aspirate them later as an outpatient if necessary. He may be up as tolerated. Weight-bear as tolerated. Elevate both legs apply compression socks. Will monitor. He may eat. Check x-rays of right knee. Left knee x-rays are negative there is no fracture. Report is noted he has no intra-articular effusion there is some soft tissue swelling noted. No need for surgical intervention at this time. Given kidney status and dysfunction would avoid NSAIDs at this time. Tylenol ice elevation. (2) Hematoma of right knee region: History of Present Illness Attending Physician: Marianna Dee DO History of Present Illness Richi is 82.He fell February 18 on both knees from standing height. He was seen by Vasile Macdonald at [facility] outpatient. He reports having x-rays done and was told he may have sprained the knee ligament. An MRI was ordered. Since then he has developed progressive redness swelling pain and bruising involving the front of his knees as well as down the legs to the ankles. It hurts worse when he goes from sitting to standing. It hurts to stand but he is feels better when he is laying or walking. At rest he does not have any pain. He was into the ER on Monday and they aspirated some fluid from the left knee area and placed him on Bactrim. He came back yesterday and was admitted to the hospital. He denies any tingling or numbness. There is been no prior history of knee injuries or problems. Bruising and swelling appeared a couple days after his injury. He denies fever at home Allergies Allergy/AdvReac Type Severity Reaction Status Date / Time No Known Allergies Allergy Unknown Verified 02/25/23 16:15 Home Medications Medication Instructions Recorded Confirmed Type acetaminophen 500 mg tablet 1,000 mg PO BID PRN PAIN/FEVER 02/25/23 02/28/23 History (Tylenol Extra Strength) allopurinol 100 mg tablet 100 mg PO BID 02/25/23 02/28/23 History amlodipine 2.5 mg tablet 2.5 mg PO DAILY 02/25/23 02/28/23 History atorvastatin 10 mg tablet 10 mg PO DAILY 02/25/23 02/28/23 History cephalexin 500 mg capsule 500 mg PO Q6H 10 days #40 caps 02/25/23 02/28/23 Rx cholecalciferol (vitamin D3) 25 25 mcg PO Q OTHER DAY 02/25/23 02/28/23 History mcg (1,000 unit) capsule (Vitamin D3) docusate sodium 50 mg capsule 50 mg PO DAILY 02/25/23 02/28/23 History gabapentin 100 mg capsule 200 mg PO BID 02/25/23 02/28/23 History losartan 25 mg tablet 25 mg PO DAILY 02/25/23 02/28/23 History omega-3 fatty acids-fish oil 684 1 cap PO DAILY 02/25/23 02/28/23 History mg-1,200 mg capsule,delayed release omeprazole 20 mg capsule,delayed 20 mg PO DAILYBB 02/25/23 02/28/23 History release oxycodone 5 mg tablet 5 mg PO Q6H PRN pain #15 tabs 02/25/23 02/28/23 Rx prednisolone acetate 1 % eye 1 drp OPB HS 02/25/23 02/28/23 History drops,suspension psyllium husk 3.4 gram/5.4 gram 1 tbsp PO BID 02/25/23 02/28/23 History oral powder (Metamucil) sulfamethoxazole 800 1 tab PO BID #20 tabs 02/25/23 02/28/23 Rx mg-trimethoprim 160 mg tablet (Bactrim DS) vitamin E 268 mg (400 unit) capsule 268 mg PO DAILY 02/25/23 02/28/23 History warfarin 5 mg tablet See Rx Instructions .Route .COMPLEX 02/25/23 02/28/23 History Patient History Medical History Chronic deep vein thrombosis (DVT) CKD (chronic kidney disease), stage III DVT (deep venous thrombosis) Dyslipidemia HTN (hypertension) Kidney donor TYESHA (obstructive sleep apnea) Surgical History H/O cornea transplant Hx of cholecystectomy Family History Other Heart disease Social History (Updated 02/28/23 @ 17:49 by Tigist Jarquin PA-C) Smoking Status: Never smoker Do You Dip or Chew Tobacco: No; Hx Alcohol Use: No Hx Substance Use: No Preferred Language: [place] Communication Ability: Effective Casino Porter Required: No Beliefs That Will Affect Care: None Current Living Situation: Significant Other Other Information That Helps Us Care for You: No Feels Safe at Home: Yes Safety Concerns: Feels Safe At This Time Assistive Devices: Hearing Aid - Bilateral Review of Systems Review of Systems: He has had gout before. Positive for DVT. On Coumadin. No notable neurological disease. He does have high blood pressure. No bleeding problems. No history of infections. All others noncontributory. Physical Exam Physical Exam: He is able to arise out of bed independently and ambulate without difficulty and without limping. Sensation intact both lower extremities with 1+ DP and PT pulses. Motor strength to ankle and toe plantarflexion dorsiflexion inversion eversion as well as knee flexion and extension are all graded 5 out of 5. There is full movement of the toes ankle and knees without significant difficulty. Good movement of the hips. There is 1-2+ pretibial edema bilaterally with some skin wrinkles in place. Bluish ecchymosis around the ankles and also into the posterior leg area. Mild erythema of both lower leg areas with some tenderness to palpation superficially. Right knee exam shows half centimeter eschar over the tibial tubercle with a small fluid collection superficial to the patellar tendon and tibial tubercle. There is no intra-articular effusion. Range of motion 0 to 125 degrees of flexion with intact cruciates and collaterals. Tenderness around the upper tibia area to palpation but nothing with weightbearing. Left knee exam shows a fluid collection adjacent to the medial joint area about 3 to 4 cm in diameter. Both legs show intact extensor mechanism with straight leg raises intact and normal knees to extension strength. Cruciates and collaterals are intact on the left knee and there is no intra-articular effusion. There is mild tenderness to palpation over the medial knee joint where the fluid collection is localized. Mild erythema over both fluid collection areas no drainage or purulence. Results & Data Vital Signs (Past 12 Hours) Vital Signs Temp Pulse Resp BP Pulse Ox O2 Del Method 03/01/23 07:52 36.3 C L 69 17 150/74 H 94 Room Air Laboratory Results Laboratory Results WBC 6.38 K/ul (4.8-10.8) 03/01/23 07:14 RBC 4.05 M/uL (4.70-6.10) L 03/01/23 07:14 Hgb 11.7 g/dl (14.0-18.0) L 03/01/23 07:14 Hct 35.3 % (42.0-52.0) L 03/01/23 07:14 MCV 87.2 fL (80.0-100.0) 03/01/23 07:14 MCH 28.9 pg (25.0-34.0) 03/01/23 07:14 MCHC 33.1 g/dL (32.0-36.0) 03/01/23 07:14 RDW Std Deviation 47.3 fL (36.4-46.3) H 03/01/23 07:14 RDW Coeff of Oliva 14.6 % (11.5-14.5) H 03/01/23 07:14 Plt Count 170 K/uL (130-400) 03/01/23 07:14 MPV 9.7 fL (9.4-12.4) 03/01/23 07:14 Immature Gran % (Auto) 0.6 % 02/28/23 12:41 Neut % (Auto) 48.1 % 02/28/23 12:41 Lymph % (Auto) 20.2 % 02/28/23 12:41 Merrick % (Auto) 30.5 % 02/28/23 12:41 Eos % (Auto) 0.3 % 02/28/23 12:41 Baso % (Auto) 0.3 % 02/28/23 12:41 Neut # (Auto) 3.31 K/uL (1.40-6.50) 02/28/23 12:41 Lymph # (Auto) 1.39 K/uL (1.2-3.4) 02/28/23 12:41 Merrick # (Auto) 2.10 K/uL (0.11-0.59) H 02/28/23 12:41 Eos # (Auto) 0.02 K/uL (0-0.50) 02/28/23 12:41 Baso # (Auto) 0.02 K/uL (0-0.2) 02/28/23 12:41 Immature Gran # (Auto) 0.04 K/uL (0.01-0.20) 02/28/23 12:41 ESR 36 mm/hr (0-20) H 02/28/23 12:41 PT 16.6 Seconds (9.0-12.0) H 03/01/23 07:14 INR 1.6 (0.9-1.1) H 03/01/23 07:14 Sodium 135 mmol/L (136-145) L 03/01/23 07:14 Potassium 4.3 mmol/L (3.5-5.1) 03/01/23 07:14 Chloride 106 mmol/L (98-107) 03/01/23 07:14 Carbon Dioxide 23 mmol/L (21-32) 03/01/23 07:14 Anion Gap 6 (3-11) 03/01/23 07:14 BUN 31 mg/dl (6-23) H 03/01/23 07:14 Creatinine 1.60 mg/dl (0.6-1.4) H 03/01/23 07:14 Est Cr Clr Drug Dosing 41.4 ml/min 03/01/23 07:14 Est GFR ( Amer) 46.5 ml/min 03/01/23 07:14 Est GFR (Non-Af Amer) 40.1 ml/min 03/01/23 07:14 BUN/Creatinine Ratio 19.4 (10-20) 03/01/23 07:14 Glucose 91 mg/dl (70-99(Fasting)) 03/01/23 07:14 Calcium 8.7 mg/dl (8.6-10.3) 03/01/23 07:14 Total Bilirubin 0.7 mg/dl (0.2-1.0) 02/28/23 12:41 AST 15 U/L (13-39) 02/28/23 12:41 ALT 17 U/L (7-52) 02/28/23 12:41 Alkaline Phosphatase 68 U/L (34-104) 02/28/23 12:41 C-Reactive Protein 11.77 mg/dl (0-0.5) H 02/28/23 12:41 Total Protein 6.5 gm/dl (6.0-8.3) 02/28/23 12:41 Albumin 3.6 gm/dl (3.4-5.0) 02/28/23 12:41 Globulin 2.9 gm/dl (2.5-4.0) 02/28/23 12:41 Albumin/Globulin Ratio 1.2 (0.9-2) 02/28/23 12:41 Random Vancomycin 12.3 mcg/ml (10-20) 03/01/23 07:14 SARS-CoV-2, RNA, NAAT NEGATIVE (NEGATIVE) 02/28/23 15:44 Impressions Venous Doppler Study 02/28/23 11:44 ULTRASOUND BILATERAL LOWER EXTREMITY VENOUS CLINICAL HISTORY: Lower extremity pain and edema COMPARISON STUDY: Left lower extremity venous ultrasound dated 02/25/2023. TECHNIQUE: Real-time, grayscale, and color Doppler sonography of the deep veins of the right and left lower extremity was performed from the inguinal crease to the calf. Compression and augmentation were utilized. FINDINGS: Right lower extremity: There is trace chronic thrombus in the proximal right superficial femoral vein. The common femoral, superficial femoral, and popliteal veins are otherwise patent and normally compressible. The greater saphenous vein and the profunda femoris vein at the junction with the common femoral vein are clear. The visualized calf veins are patent. Left lower extremity: There is no sonographic evidence of deep venous thrombosis in the left lower extremity. The common femoral, superficial femoral, and popliteal veins are patent and normally compressible. The greater saphenous vein and the profunda femoris vein at the junction with the common femoral vein are clear. The visualized calf veins are patent. Soft tissue edema is present in both calves. An indeterminate complex hypoechoic collection in the soft tissues of the medial left knee is similar to previous. This measures 6.8 x 2.1 x 5.1 cm. No internal flow was shown on color imaging. IMPRESSION: 1. There is no sonographic evidence of acute deep venous thrombosis in the right or left lower extremity. 2. Trace chronic thrombus is seen in the right superficial femoral vein. 3. Lower extremity edema. 4. A 6.8 cm complex hypoechoic nonvascular collection in the soft tissues medial to the left patella is similar to the 02/25/2023 examination. This likely represents a hematoma. Clinical correlation will be essential and clinical follow-up to resolution will be required ACT 112: Negative or not required by law. Electronically signed by: Jose Vides M.D. 02/28/2023 2:36 PM
--- NOTE | 2023-03-01 11:07 | XRay Report ---
XR knee RT 3V CLINICAL HISTORY: right knee pain COMPARISON STUDY: None. FINDINGS: Diffuse soft tissue swelling within the lower leg most pronounced within the infrapatellar location. No significant knee effusion. No fracture or dislocation within the right knee. No erosive changes. No radiopaque foreign bodies. Mild tricompartmental osteoarthritis. IMPRESSION: 1. Diffuse soft tissue swelling within the lower leg most pronounced within the infrapatellar locatio n. 2. No fracture or dislocation within the right knee. ACT 112: Negative or not required by law. Electronically signed by: Raymon Butt M.D. 03/01/2023 11:06 AM
[2023-03-01] MEDS ORDERED: PSYLLIUM or GUAR GUM FIBER POWDER PACKET PO SCH (12:30)
[2023-03-01] MEDS ORDERED: ACETAMINOPHEN 500 MG TAB PO SCH (17:00)
--- NOTE | 2023-03-01 18:16 | Hospitalist Progress Note ---
Date of Service March 01, 2023 Assessment & Plan (1) Hematoma of left knee region: Plan: aspirated small amount per Ortho, septic arthritis ruled out in both knees. Should resolve with supportive care. PT/OT to ensure safety prior to returning home. (2) Cellulitis: Plan: Possible early cellulitis seen with erythema streaking up middle thighs yesterday. This is improved today after antibiotics have been given. Will stop vancomycin now and de-escalate to amoxicillin at time of discharge for a short course. (3) Acute kidney injury superimposed on chronic kidney disease: Plan: Improving after recent bactrim use. Remains off bactrim with creatinine going from 1.75-->1.60 today with baseline 1.15. Will add one bag of NSS overnight. Repeat BMP in am. (4) Acute blood loss anemia: Plan: stable to yesterday. Restart coumadin. (5) Chronic deep vein thrombosis (DVT): Plan: restart coumadin (6) HTN (hypertension): Plan: chronic, at goal. Cont current therapy. (7) TYESHA (obstructive sleep apnea): Plan: CPAP qHS, may use home CPAP warfarin Full Code Dispo- to home pending PT/OT recs, possibly tomorrow Marianna Dee DO [facility] Hospitalist Admission and Anticipated Discharge Date Admission Date: February 28, 2023 Subjective 82-year-old man presented with bilateral knee pain after recent trauma. On February 18 he fell onto both knees from a standing height. Today he denies any fever, and reports his pain is resolved. He is status post aspiration of 1 cc of blood from the right knee pretibial area and a drop of blood from the left knee medial area. There was no purulence noted and pressure was held until bleeding was stopped. He is afebrile with inflammatory markers elevated. Per Ortho he has bilateral knee hematoma secondary to his fall with resultant inflammation. There could be some early cellulitis with the red streaking up the legs which is improved today. There is no evidence of septic arthritis and no abscess that needs to be drained. These are hematomas and should resolve on their own. Weightbearing as tolerated with x-rays of the right knee performed today. This revealed diffuse soft tissue swelling with the lower leg most pronounced within the infrapatellar location with no fracture or dislocation within the right knee. He overall feels improved today. Review of Systems Review of Systems: All systems reviewed negative septa as indicated above. Physical Exam Physical Exam: CONSTITUTIONAL: WNWD, vitals as above, generally well-appearing, NAD EYES: normal conjunctivae, no scleral icterus ENT: external ear and nose normal, MMM NECK: trachea midline RESPIRATORY: clear to auscultation bilaterally, no crackles, rales or wheezes, normal respiratory effort CARDIOVASCULAR: regular rate and rhythm, S1 and 2 heard without murmurs, gallops or rubs, no JVD, no peripheral edema CHEST: inspection of chest was normal GASTROINTESTINAL: soft, nontender, ND, no guarding MUSCULOSKELETAL: strength 5/5 throughout, head is normocephalic and atraumatic SKIN: warm and dry, medial thigh redness is improved to a light pink with the area feeling more cool to touch today. NEUROLOGIC: CN 2-12 grossly intact, no sensory deficit, normal cognition, normal speech, no tremor PSYCHIATRIC: alert cooperative and oriented to person, place and time. Euthymic mood, makes good eye contact, language grossly intact, recent and remote memory grossly intact. Results & Data Results & Data Vital Signs (Past 12 Hours) Vital Signs Temp Pulse Resp BP Pulse Ox O2 Del Method 03/01/23 15:43 36.7 C 72 20 130/62 93 Room Air 03/01/23 07:52 36.3 C L 69 17 150/74 H 94 Room Air Laboratory Results Short CBC 03/01/23 Range/Units 07:14 WBC 6.38 (4.8-10.8) K/ul Hgb 11.7 L (14.0-18.0) g/dl Hct 35.3 L (42.0-52.0) % Plt Count 170 (130-400) K/uL BMP 03/01/23 07:14 Sodium 135 L Potassium 4.3 Chloride 106 Carbon Dioxide 23 BUN 31 H Creatinine 1.60 H Glucose 91 Calcium 8.7 Diagnostic Findings Knee X-Ray 03/01/23 09:55 XR knee RT 3V CLINICAL HISTORY: right knee pain COMPARISON STUDY: None. FINDINGS: Diffuse soft tissue swelling within the lower leg most pronounced within the infrapatellar location. No significant knee effusion. No fracture or dislocation within the right knee. No erosive changes. No radiopaque foreign bodies. Mild tricompartmental osteoarthritis. IMPRESSION: 1. Diffuse soft tissue swelling within the lower leg most pronounced within the infrapatellar location. 2. No fracture or dislocation within the right knee. ACT 112: Negative or not required by law. Electronically signed by: Raymon Butt M.D. 03/01/2023 11:06 AM Medications Administered Current Inpatient Medications Acetaminophen (Acetaminophen 500 Mg Tab) 1,000 mg PO Q8H PRN PRN Reason: pain/fever Stop: 03/31/23 16:59 Allopurinol (Allopurinol 100 Mg Tab) 100 mg PO BID [facility] Stop: 03/30/23 20:59 Last Admin: 03/01/23 08:11 Dose: 100 mg Amlodipine Besylate (Amlodipine Besylate 5 Mg Tab) 2.5 mg PO DAILY [facility] Stop: 03/31/23 08:59 Last Admin: 03/01/23 08:11 Dose: 2.5 mg Atorvastatin Calcium (Atorvastatin 10 Mg Tab) 10 mg PO DAILY [facility] Stop: 03/31/23 08:59 Last Admin: 03/01/23 08:11 Dose: 10 mg Docusate Sodium (Docusate Sodium 100 Mg Cap) 100 mg PO DAILY [facility] Stop: 03/31/23 08:59 Last Admin: 03/01/23 08:11 Dose: 100 mg Gabapentin (Gabapentin 100 Mg Cap) 200 mg PO BID [facility] Stop: 03/30/23 20:59 Last Admin: 03/01/23 08:11 Dose: 200 mg Ceftriaxone Sodium 2,000 mg/ (Dextrose) 70 mls @ 140 mls/hr IV Q24H [facility] Stop: 03/07/23 19:59 Last Infusion: 02/28/23 23:51 Dose: Infused Vancomycin HCl 1,250 mg/ (Sodium Chloride) 275 mls @ 200 mls/hr IV Q24H [facility]; Protocol Stop: 03/08/23 08:59 Last Infusion: 03/01/23 10:25 Dose: Infused Miscellaneous Information (Vancomycin Consult Active) 1 each N/A UD PRN PRN Reason: Consult Stop: 03/30/23 16:31 Ondansetron HCl (Ondansetron Inj 2 Mg/Ml 2 Ml Vial) 4 mg IV Q6H PRN PRN Reason: Nausea Stop: 03/30/23 18:57 Oxycodone HCl (Oxycodone Hcl Ir 5 Mg Tab (Immediate Release)) 5 mg PO Q6H PRN PRN Reason: pain Stop: 03/14/23 18:57 Pantoprazole Sodium (Pantoprazole 40 Mg Tab) 40 mg PO DAILYBB [facility] Stop: 03/31/23 06:29 Last Admin: 03/01/23 05:41 Dose: 40 mg Polyethylene Glycol (Polyethylene (Miralax) 17 Gm Pack) 17 gm PO DAILY PRN PRN Reason: Constipation Stop: 03/30/23 18:57 Last Admin: 03/01/23 08:16 Dose: 17 gm Prednisolone Acetate (Prednisolone Acetate 1% Op Susp 5 Ml Btl) 1 drops OPB HS [facility] Stop: 03/30/23 20:59 Last Admin: 02/28/23 21:22 Dose: 1 drops Psyllium Hydrophilic Mucilloid (Psyllium Or Guar Gum Fiber Powder Packet) 1 pkt PO BID [facility] Stop: 03/31/23 20:59 Vitamin D (Cholecalciferol 1,000 Units 25 Mcg Tab) 1,000 units PO Q2D@0900 [facility] Stop: 03/31/23 08:59 Last Admin: 03/01/23 08:11 Dose: 1,000 units Vitamin E (Tocopheryl, Dl-Alpha 400 Units 180 Mg Cap) 400 units PO DAILY [facility] Stop: 03/31/23 08:59 Last Admin: 03/01/23 08:13 Dose: 400 units (2) Cellulitis Site of cellulitis: extremity Site of cellulitis of extremity: lower extremity Laterality: unspecified laterality Qualified Code(s): L03.119 - Cellulitis of unspecified part of limb
[2023-03-01] MEDS ORDERED: SODIUM CHLORIDE 0.9% 1000ML 1,000 ML IV SCH (18:30)
[2023-03-01] MEDS: ACETAMINOPHEN 500 MG TAB PO PRN (18:38)
[2023-03-01] MEDS ORDERED: WARFARIN SOD 5 MG TAB PO SCH (19:00)
[2023-03-01] MEDS: cefTRIAXone SODIUM 2,000 MG in DEXTROSE 5% 50 ML IV SCH (19:20)
[2023-03-01] MEDS: prednisoLONE acetate 1% OP SUSP 5 ML BTL OPB SCH (20:08)
[2023-03-01] MEDS: PSYLLIUM or GUAR GUM FIBER POWDER PACKET PO SCH (20:08)
[2023-03-02] MEDS: PANTOprazole 40 MG TAB PO SCH (05:32)
[2023-03-02] MEDS: ACETAMINOPHEN 500 MG TAB PO PRN ×2 (05:34→13:31)
[2023-03-02] MEDS: GABAPENTIN 100 MG CAP PO SCH (07:41)
[2023-03-02] MEDS: allopurinoL 100 MG TAB PO SCH (07:41)
[2023-03-02] MEDS: TOCOPHERYL, DL-ALPHA 400 UNITS 180 MG CAP PO SCH (07:41)
[2023-03-02] MEDS: ATORVASTATIN 10 MG TAB PO SCH (07:41)
[2023-03-02] MEDS: DOCUSATE SODIUM 100 MG CAP PO SCH (07:41)
[2023-03-02] MEDS: amLODIPine BESYLATE 5 MG TAB PO SCH (07:41)
[2023-03-02] MEDS: PSYLLIUM or GUAR GUM FIBER POWDER PACKET PO SCH (07:42)
[2023-03-02 07:55] LABS: Hematocrit (blood only) 31.5 % (42.0-52.0); Hemoglobin 10.7 g/dl (14.0-18.0); Mean Corpuscular Hemoglobin 29.6 pg (25.0-34.0); Mean Platelet Volume 9.9 fL (9.4-12.4); Platelet Count 157 K/uL (130-400); RDW Coefficient of Variation 14.6 % (11.5-14.5); RDW Standard Deviation 46.9 fL (36.4-46.3); Red Blood Count 3.62 M/uL (4.70-6.10); White Blood Count 5.32 K/ul (4.8-10.8)
[2023-03-02 08:13] LABS: C Reactive Protein 6.71 mg/dl (0-0.5); Calcium 8.4 mg/dl (8.6-10.3); Creatinine Clr Calc Pharmacy 45.1 ml/min; Est GFR (African American) 51.5 ml/min; Est GFR (Non-African American) 44.4 ml/min
[2023-03-02 08:16] LABS: INR 1.5 (0.9-1.1); Prothrombin Time 15.8 Seconds (9.0-12.0)
--- NOTE | 2023-03-02 14:40 | Discharge Summary ---
Discharge Summary Date of Service March 02, 2023 Notes For Next Care Provider Bilateral knee hematomas resolving, abx treatment for possible early cellulitis. AVI 2/2 bactrim resolving Medication Changes From Visit Complete 5 days amoxicillin course for possible cellulitis, holding losartan for a few days 2/2 AVI Admission HPI Per Admitting Provider This is an 82-year-old male with PMH of history of DVT on Coumadin, CKD 3, acquired solitary kidney, hypertension, first-degree AV block, gout, hyperlipidemia, sleep apnea on CPAP and other medical problems listed below who presents with ongoing pain and swelling of both knees. Patient had a fall on 02/18 and landed on both knees on concrete. Was seen in outpatient setting by [facility] orthopedics, who feel left injury may have resulted in possible PCL rupture and has an MRI scheduled in a few weeks to confirm PCL injury. Small hematoma noted and instructed to continue ice and Voltaren gel. Pain and swelling persisted despite patient following this regimen, so he presented to ED on 02/25 and had a joint aspiration performed by ED physician that was only consistent with hematoma and not purulent material, per chart review. Was discharged home on antibiotic course of Keflex and Bactrim for possible cellulitis but pain and swelling have persisted and even worsened, so returning to ED today. Pain is most severe with positional change such as lying to sitting or when he steps out of bed and places weight on both extremities. States that once he gets moving, pain is not very severe with ambulation any is still able to bend his knees without much issue. Taking Coumadin for over 20 years for history of DVT. Was seen by anticoagulation clinic this morning, who wanted to continue his current dose schedule of 2.5 on Monday and 5 every other day. Denies any fever, chills, lightheadedness, chest pain, shortness of breath, nausea, vomiting, abdominal pain, dysuria, diarrhea or constipation. Admission Exam Per Admitting Provider General Appearance:WD/WN, vitals as above, NAD, sitting up in bed, pleasant, conversing easily Head: normocephalic, atraumatic Eyes:normal inspection, PERRL, conjunctivae normal, anicteric sclerae ENT: external ear and nose normal, oropharynx normal Neck: normal visual inspection, trachea midline, no thyromegaly Respiratory:normal respiratory effort, lungs clear to auscultation, no wheeze, rales, rhonchi. No accessory muscle use Cardiovascular: regular rate, rhythm, no murmur, normal peripheral pulses, no BLE edema. Vessels: no JVD Chest: normal inspection of chest Abdomen/GI: normal bowel sounds, soft, nontender, no hepatosplenomegaly Extremities/Musculoskeletal: no cyanosis or clubbing, extremities motor strength 5/5 + Bilateral knees with edema, TTP with hematomas overlying patella. Erythematous streaking over knee and extending proximally to thigh, warm to touch Neurologic: PERRL, EOMI, accommodation nl, no face palsy, no dysarthria, CN's II-XI intact bilaterally and moves all extremities Psychiatric:A+Ox3, euthymic affect Skin: no rashes, normal color, warm/dry Principal Dx & Hospital Course #1 = Principal Diagnosis (1) Hematoma of left knee region: (2) Cellulitis: (3) Acute kidney injury superimposed on chronic kidney disease: (4) Acute blood loss anemia: (5) Chronic deep vein thrombosis (DVT): (6) HTN (hypertension): (7) TYESHA (obstructive sleep apnea): Plan This is an 82-year-old male with PMH of history of DVT on Coumadin, CKD 3, acquired solitary kidney, hypertension, first-degree AV block, gout, hyperlipidemia, sleep apnea on CPAP and other medical problems listed below who presents with ongoing pain and bilateral knee hematomas from fall last week. Evaluated by orthopedic service, who aspirated small amount of fluid and septic arthritis ruled out in both knees. Expected to resolve with supportive care. Improvement to pain and ambulation after aspiration, per patient. Continue tylenol as needed. PT/OT evaluations performed and feel patient is appropriate to return home. Possible early cellulitis seen with erythema streaking up middle thighs yesterday that has improved with IV antibiotics. Discharge on today short course of amoxicillin to complete antibiotic therapy. AVI noted on admission likely 2/2 Bactrim use earlier in the week. Cr improving from 1.75 -> 1.43 during admission. Will hold losartan until Monday and repeat BMP within 1 week to check on renal function. Hemoglobin stabilized and coumadin resumed. Hemodynamically stable at time of discharge home. Discharge Exam Gen: WD/WN, NAD, sitting up in bed, A&Ox3 HEENT: Normocephalic, atraumatic, conjunctivae moist, sclerae anicteric, mucous membranes moist Lung: Clear to Auscultation bilaterally, no wheezes/rales/rhonchi Heart: Regular rate, regular rhythm, no murmurs, rubs, or gallops Abdomen: Soft, NT, ND +BS x 4 Extremities: Decreased swelling of bilateral knees, decrease in size of pre- patellar hematomas. Improved appearance of erythema, no longer warm to touch, teds in place bilaterally Skin: Warm, no rash Updated Medication List Medication Instructions Recorded Confirmed Type acetaminophen 500 mg tablet 1,000 mg PO BID PRN PAIN/FEVER 02/25/23 02/28/23 History (Tylenol Extra Strength) allopurinol 100 mg tablet 100 mg PO BID 02/25/23 02/28/23 History amlodipine 2.5 mg tablet 2.5 mg PO DAILY 02/25/23 02/28/23 History atorvastatin 10 mg tablet 10 mg PO DAILY 02/25/23 02/28/23 History cholecalciferol (vitamin D3) 25 25 mcg PO Q OTHER DAY 02/25/23 02/28/23 History mcg (1,000 unit) capsule (Vitamin D3) docusate sodium 50 mg capsule 50 mg PO DAILY 02/25/23 02/28/23 History gabapentin 100 mg capsule 200 mg PO BID 02/25/23 02/28/23 History losartan 25 mg tablet 25 mg PO DAILY 02/25/23 02/28/23 History omega-3 fatty acids-fish oil 684 1 cap PO DAILY 02/25/23 02/28/23 History mg-1,200 mg capsule,delayed release omeprazole 20 mg capsule,delayed 20 mg PO DAILYBB 02/25/23 02/28/23 History release oxycodone 5 mg tablet 5 mg PO Q6H PRN pain #15 tabs 02/25/23 02/28/23 Rx prednisolone acetate 1 % eye 1 drp OPB HS 02/25/23 02/28/23 History drops,suspension psyllium husk 3.4 gram/5.4 gram 1 tbsp PO BID 02/25/23 02/28/23 History oral powder (Metamucil) vitamin E 268 mg (400 unit) capsule 268 mg PO DAILY 02/25/23 02/28/23 History warfarin 5 mg tablet See Rx Instructions .Route .COMPLEX 02/25/23 02/28/23 History amoxicillin 875 mg tablet 875 mg PO BID #10 tabs 03/02/23 Rx Hospital Stay Data Consultations 02/28/23 15:29 ED Decision to Admit Stat 02/28/23 16:34 Consult Orthopedic Surgery Routine Diagnostic Imagining Performed 02/28/23 11:44 US venous doppler LE BI Stat Pending Results Patient Have Any Pending Studies at Discharge: No Discharge Instructions Given to Patient (Per Discharging Provider) Please take all medications as instructed on discharge as below. It is recommended to use Tylenol 1000 mg every 8 hours for a max of 3000 mg in 1 day as needed for pain. Please avoid any nonsteroidal anti-inflammatory drugs (NSAIDS) such as Motrin, ibuprofen, Aleve, naproxen. These may make your kidney function worse and should be avoided. Please take 5 additional days of antibiotics to clear up the redness of your inner thighs just above your knees. This may have been an early skin infection that improved on antibiotics. Please hold off on taking losartan until Monday, then ok to restart. Please repeat BMP in 1 week. Primary care doctor to order. Please follow-up with your primary care doctor in 1 week in order to ensure you are still doing well after returning home. They can reassess your knees, order your blood work and monitor your pain. It was a pleasure taking care of you! Please call if you have any questions or problems. You can reach a [facility] Hospitalist on duty at [facility] 24 hours a day by calling [phone]. Take care of yourself. Marianna Dee, [facility] Hospitalist Total Time Total Time Spent Total Time Spent (In Minutes): 50
[2023-03-06] MEDS ORDERED: WARFARIN SOD 2.5 MG TAB PO SCH (16:00)
== END 2023-03-02 16:02 | disposition home or self-care (01) | DRG 605 ==
LOC: EDINP 10:37 → ED 10:37 → 3N 20:22

== ENCOUNTER 2023-12-19 07:49 | Inpatient (IN) ==
--- NOTE | 2023-11-30 13:03 | PAT Medication Instructions ---
Medication Instructions Date of Service November 30, 2023 Home Medications acetaminophen 500 mg tablet (Tylenol Extra Strength) 1,000 mg PO BID PAIN allopurinol 100 mg tablet 100 mg PO BID amlodipine 2.5 mg tablet 2.5 mg PO QAM atorvastatin 10 mg tablet 10 mg PO HS cholecalciferol (vitamin D3) 25 mcg (1,000 unit) capsule (Vitamin D3) 25 mcg PO Q OTHER DAY docusate sodium 50 mg capsule 50 mg PO QAM gabapentin 100 mg capsule 200 mg PO BID losartan 25 mg tablet 25 mg PO QAM omega-3 fatty acids-fish oil 684 mg-1,200 mg capsule,delayed release 1 cap PO BID omeprazole 20 mg capsule,delayed release 20 mg PO DAILYBB prednisolone acetate 1 % eye drops,suspension 1 drp OPB HS psyllium husk 3.4 gram/5.4 gram oral powder (Metamucil) 1 tbsp PO BID warfarin 5 mg tablet See Rx Instructions .Route .COMPLEX Pancreat-Bet DGg-yhh-saap-pap 250 mg-162 mg-65 mg-125 mg capsule (Super Enzyme) 1 cap PO BID coenzyme Q10 100 mg capsule (CoQ-10) 100 mg PO QAM cyanocobalamin (vitamin B-12) 1,000 mcg tablet (Vitamin B-12) 1,000 mcg PO 3XWK ASK your prescriber and surgeon warfarin 5 mg tablet See Rx Instructions .Route .COMPLEX STOP taking 2 weeks before surgery (or as soon as possible if surgery is within 2 weeks) omega-3 fatty acids-fish oil 684 mg-1,200 mg capsule,delayed release 1 cap PO BID Pancreat-Bet OFq-rfa-ohyl-pap 250 mg-162 mg-65 mg-125 mg capsule (Super Enzyme) 1 cap PO BID coenzyme Q10 100 mg capsule (CoQ-10) 100 mg PO QAM DO NOT take the morning of surgery cholecalciferol (vitamin D3) 25 mcg (1,000 unit) capsule (Vitamin D3) 25 mcg PO Q OTHER DAY docusate sodium 50 mg capsule 50 mg PO QAM losartan 25 mg tablet 25 mg PO QAM psyllium husk 3.4 gram/5.4 gram oral powder (Metamucil) 1 tbsp PO BID cyanocobalamin (vitamin B-12) 1,000 mcg tablet (Vitamin B-12) 1,000 mcg PO 3XWK Take morning of surgery With a small sip of water, OTHERWISE NOTHING TO EAT OR DRINK AFTER MIDNIGHT: acetaminophen 500 mg tablet (Tylenol Extra Strength) 1,000 mg PO BID PAIN (if needed) allopurinol 100 mg tablet 100 mg PO BID amlodipine 2.5 mg tablet 2.5 mg PO QAM gabapentin 100 mg capsule 200 mg PO BID omeprazole 20 mg capsule,delayed release 20 mg PO DAILYBB Take evening before surgery acetaminophen 500 mg tablet (Tylenol Extra Strength) 1,000 mg PO BID PAIN (if needed) allopurinol 100 mg tablet 100 mg PO BID atorvastatin 10 mg tablet 10 mg PO HS gabapentin 100 mg capsule 200 mg PO BID prednisolone acetate 1 % eye drops,suspension 1 drp OPB HS psyllium husk 3.4 gram/5.4 gram oral powder (Metamucil) 1 tbsp PO BID Other Notes If you have any questions please call us at [phone] or [phone] or [phone] or [phone]
--- NOTE | 2023-12-06 11:11 | Anesthesiology Consultation ---
Date of Service December 06, 2023 Assessment & Plan (1) Encounter for pre-operative examination: - Check coags AM DOS (S MTM aware of upcoming surgery- arranged preop Lovenox bridging for patient) - Infectious disease screening: Per assessment on 12/06/23: No known infectious disease contacts or current infectious disease symptoms. No noted recent Covid positive test result. - Patient acceptable risk for surgery pending surgeon-ordered PCP clearance ([facility]). Chart Review Chart Review: Patient seen in Pre Admission Testing Teaching & Discussion Pre-Anesthesia Teaching/Discussion Notes: Instructed NPO after midnight before surgery,except medications with 15 cc of water. Medication instructions provided according to the PAT guidelines. History Surgery Operation Date: 12/18/23 11:05 Proposed Procedures p L3-S1 Decompresion and Fusion, Spinal Cord Monitoring - Mg Khan DO Height/Weight Height: 5 ft 8 in Weight: 98.3 kg Allergies Allergy/AdvReac Type Severity Reaction Status Date / Time No Known Allergies Allergy Unknown Verified 11/28/23 13:47 Medications Home Medications Medication Instructions Recorded Confirmed Last Taken acetaminophen 500 mg tablet 1,000 mg PO BID PAIN 02/25/23 11/28/23 Unknown (Tylenol Extra Strength) allopurinol 100 mg tablet 100 mg PO BID 02/25/23 11/28/23 02/25/23 08:00 atorvastatin 10 mg tablet 10 mg PO HS 02/25/23 11/28/23 02/25/23 cholecalciferol (vitamin D3) 25 25 mcg PO Q OTHER DAY 02/25/23 11/28/23 02/24/23 mcg (1,000 unit) capsule (Vitamin D3) docusate sodium 50 mg capsule 50 mg PO QAM 02/25/23 11/28/23 02/25/23 gabapentin 100 mg capsule 200 mg PO BID 02/25/23 11/28/23 02/25/23 08:00 losartan 25 mg tablet 50 mg PO QAM 02/25/23 12/06/23 02/25/23 omega-3 fatty acids-fish oil 684 1 cap PO BID 02/25/23 11/28/23 02/25/23 mg-1,200 mg capsule,delayed release omeprazole 20 mg capsule,delayed 20 mg PO DAILYBB 02/25/23 11/28/23 02/25/23 release prednisolone acetate 1 % eye 1 drp OPB HS 02/25/23 11/28/23 02/24/23 drops,suspension psyllium husk 3.4 gram/5.4 gram 1 tbsp PO BID 02/25/23 11/28/23 02/25/23 08:00 oral powder (Metamucil) warfarin 5 mg tablet See Rx Instructions .Route .COMPLEX 02/25/23 11/28/23 02/24/23 Pancreat-Bet XUd-uvy-jdwk-pap 250 1 cap PO BID 11/28/23 11/28/23 Unknown mg-162 mg-65 mg-125 mg capsule (Super Enzyme) coenzyme Q10 100 mg capsule 100 mg PO QAM 11/28/23 11/28/23 Unknown (CoQ-10) cyanocobalamin (vitamin B-12) 1,000 mcg PO 3XWK 11/28/23 11/28/23 Unknown 1,000 mcg tablet (Vitamin B-12) multivitamin 1 tab PO DAILY 12/06/23 12/06/23 Unknown Past Medical History Medical History Chronic back pain CKD (chronic kidney disease), stage III DVT (deep venous thrombosis) [id number] Taking Warfarin Dyslipidemia HTN (hypertension) Kidney donor mid donated kidney Obesity TYESHA (obstructive sleep apnea) CPAP (compliant) Osteoarthritis Scoliosis Exercise / Class Metabolic Activity III < 4 Walking/Shop/Light housework Past Family History Family History Other Heart disease No family history of adverse response to anesthesia Past Surgical History Surgical History H/O cornea transplant bilateral eyes History of eye surgery right macular treatment History of hernia surgery History of kidney donation Left (Mid ) History of repair of left rotator cuff Hx of cholecystectomy Past Anesthesia History No Hx of Anesthesia Complications and No Family Hx of Anesthesia Complications History of PONV No Hx of PONV and No Hx of Motion Sickness Social History Smoking Status: Never smoker Do You Dip or Chew Tobacco: No Hx Alcohol Use: No Hx Substance Use: No substance use type: does not use Review of Systems Patient denies chest pain, shortness of breath, dyspnea on exertion, fever, chills, cough, wheezing, palpitations. Physical Exam Vital Signs BP 123/71 P 70 TEMP 98.2 SP02 95%RA RESP 16 Physical Full cervical extension range of motion. Full TMJ range of motion. TMD > 3.5 finger breaths Mallampati Score 2 Dentition: intact Lungs: clear throughout to auscultation Cardiac: regular rate and rhythm, no murmurs noted Spine: normal Carotid arteries: negative bruit Extremities: no LE edema Lab Results Anesthesia Preop Results Results Anesthesia Widget: PTT 38 Seconds (21-31) H 12/06/23 Urine Color Yellow 12/06/23 Urine Appearance Clear (Clear) 12/06/23 Urine pH 6.0 (4.5-7.5) 12/06/23 Urine Specific [place] 1.017 (1.000-1.030) 12/06/23 Urine Protein Negative (Negative) 12/06/23 Urine Glucose (UA) Negative (Negative) 12/06/23 Urine Ketones Negative (Negative) 12/06/23 Urine Blood Negative (Negative) 12/06/23 Urine Nitrite Negative (Negative) 12/06/23 Urine Bilirubin Negative (Negative) 12/06/23 Urine Urobilinogen Negative (Negative) 12/06/23 Urine Leukocyte Esterase Negative (Negative) 12/06/23 Blood Type A Positive 12/06/23 Antibody Screen NEGATIVE 12/06/23 Testing Laboratory Results 12/01/23 WBC 7.10 H/H 13.8/41.5 PLATELETS 145 SODIUM 138 POTASSIUM 4.5 CHLORIDE 103 CO2 26 BUN 28 CREATININE 1.5 (GFR 45) GLUCOSE 102 PT 32.0 INR 3.1 Electrocardiogram Date: 12/06/23 SR with first degree AVB at 62bpm. "Otherwise normal ECG" Chest X-Ray Date: 12/06/23 Findings: + NAD
--- OUTSIDE RECORDS SUMMARY | 2023-12-19 08:20 | External Medical Summary | Summary of Care ---
Author Name Unknown Organization [facility] Address [address] [place] [address] Phone [phone] Care Team Providers Care Sawmill Supervisor Name Role Phone Ventura Vaughn MD Primary Care Provider + Reason for Visit * Reason Comments Other Wants to know about his Coumadin - taking Lovenox. Have back surgery by Dr. Khan - was to be December 17 and moved to December 18.Tried to get Coumadin Clinic but they had already closed. Encounter Details Date Type Department Care Team (Latest Contact Info) Description 12/15/2023 9:15 PM EDT Convenient Care Visit [address] [place] [address] Dhaval Fisher PA-C [address] [facility] [place] [phone] Anticoagulation adequate* Allergies Active Allergy Reactions Criticality Noted Date Comments Sulfamethoxazole-Trimethoprim Other (Please comment) 03/09/2023 AVI documented as of this encounter (statuses as of 12/15/2023) Medications Medication Sig Dispensed Refills Start Date End Date Status COLACE 50 MG PO CAPS Take 1 Capsule by mouth in the morning. 0 Active TYLENOL EXTRA STRENGTH 500 MG PO TABS two tabs by mouth bid for fever 100 5 05/30/2007 Active METAMUCIL 30.9 % PO POWD One tablespoon twice a day 0 01/10/2012 Active PREDNISOLONE ACETATE 1 % OP SUSP Instill 1 Drop into both eyes every evening. 0 Active [place]hen-3 Fatty Acids (FISH OIL) 1200 MG CAPS Take by mouth 1 Capsule daily . 0 Active Vitamin D3 25 MCG (1000 UT) Oral Tablet (Vitamin D3)Indications:V itamin D deficiency Take 1 Tablet by mouth every other day. 0 12/16/2021 Active CPAP every night at bedtime . 0 Active Allopurinol 100 MG Oral Tablet (Zyloprim)Indica tions:Elevated uric acid in blood TAKE ONE TABLET BY MOUTH EVERY MORNING AND TAKE ONE TABLET BY MOUTH EVERY DAY BEFORE BEDTIME 180 Tablet 3 02/06/2023 4 Active prednisoLONE Acetate 1 % Ophthalmic Suspension (Pred Forte) INSTILL ONE DROP INTO BOTH EYES ONCE DAILY 15 mL 3 11/29/2022 4 Active amLODIPine Besylate 2.5 MG Oral Tablet (Norvasc)Indicat ions:Kidney disease, chronic, stage III (GFR 30-59 ml/min) (HCC),HTN, goal below 130/80 TAKE ONE TABLET BY MOUTH EVERY DAY 90 Tablet 3 05/30/2022 Active Gabapentin 100 MG Oral Capsule (Neurontin)Indic ations:Lumbar radicular pain Take 2 Capsules by mouth in the morning and 2 Capsules before bedtime. 360 Capsule 1 06/30/2023 Active Omeprazole 20 MG Oral Capsule Delayed Release (PriLOSEC) TAKE ONE CAPSULE BY MOUTH ONCE DAILY ONE HOUR BEFORE THE FIRST MEAL OF THE DAY 90 Capsule 1 07/04/2023 Active B-12 1000 MCG Oral Tablet Take by mouth. 0 Active Warfarin Sodium 5 MG Oral Tablet (Coumadin)Indica tions:History of DVT (deep vein thrombosis) Take 1 Tablet by mouth in the morning. Or as directed by anticoagulation clinic. 90 Tablet 1 09/26/2023 4 Active Enoxaparin Sodium 80 MG/0.8ML Injection Solution Prefilled Syringe (Lovenox)Indicat ions:History of DVT (deep vein thrombosis) Inject 80 mg under the skin in the morning and 80 mg before bedtime. Take as directed by anticoag clinic for upcoming procedure. (10 syringes ordered). 8 mL 0 12/01/2023 Active Losartan Potassium 50 MG Oral Tablet (Cozaar)Indicati ons:HTN, goal below 130/80 Take 1 Tablet by mouth in the morning. 90 Tablet 3 12/01/2023 Active amLODIPine Besylate 2.5 MG Oral Tablet (Norvasc)Indicat ions:HTN, goal below 130/80 Take 1 Tablet by mouth in the morning. HOLD FOR NOW. 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 12/01/2023 Chronic gout of multiple sites 05/05/2022 Chronic kidney disease, stage 3a 02/09/2021 Overview: Per CKD protocol Hypertensive kidney disease with stage 3a chronic kidney disease 08/10/2020 Overview: Per CKD protocol HTN, goal below 130/80 11/15/2019 Venous insufficiency 11/15/2019 Gastroesophageal reflux disease without esophagi tis 04/23/2019 Mixed hyperlipidemia 04/23/2019 History of DVT (deep vein thrombosis) 03/22/2018 Post corneal transplant 01/08/2014 1st degree AV block 12/27/2012 custodial current use of anticoagulant therapy 0 05/03/2005 Overview: ICD-10 update of inactive term Anticoagulation management encounter 05/03/2005 Acquired solitary kidney 09/05/2003 Overview: ICD-10 update of inactive term SLEEP APNEA NOS- CPAP Overview: nasal cpap 8 cm documented as of this encounter (statuses as of 12/15/2023) Resolved Problems Problem Noted Date Diagnosed Date Resolved Date Elevated uric acid in blood 12/05/2021 05/05/2022 Hypertensive kidney disease with stage 3 chronic kidney disease 11/15/2019 08/13/2020 Overview: Per CKD protocol Hypophosphatemia 11/15/2019 04/30/2021 Kidney disease, chronic, sta ge III (GFR 30-59 ml/min) 04/11/2016 12/12/2019 Overview: Per CKD protocol #1 Bacterial pneumonia 11/30/2014 12/01/19 15 Deviated nasal septum 09/01/20092018 ADVANCE DIRECTIVE INFORMATION 09/20/2006 04/23/2019 Overview: Yes, Patient instructed to provide copy of advance directive for provider to review and to be scanned into Electronic Medical Record. Venous thrombosis 05/03/2005 07/31/2020 rash--possible from chemical exposure 05/13/2002 04/23/2019 Dermatitis 05/13/2002 04/23/2019 COPD, severity to be determined 04/26/2001 08/02/2011 Esophagitis 04/23/2019 Overview: ICD-10 update of inactive term Hearing loss 04/23/2019 [place]unola' lung 02/07/2012 Phlebitis and thrombophlebit is of other deep vessels of lower extremities 03/22/2017 documented as of this encounter (statuses as of 12/15/2023) Immunizations Name Administration Dates Next Due COVID-19 mRNA, LNP-s, No Pre serve, 2-Dose Series (DecaWave) 07/28/2021,12/08/2020,11/08/2020 COVID-19, LNP-s, No Preserve , Anderson-sucrose, Ages 12+ (Pfizer) 03/01/2022 COVID-19, MRNA-LNP, 23-24, P F, 30 MCG/0.3 mL, 12 YRS AND ABOVE, IM (goviral-Comirnat) 08/01/2023 Covid-19, Mrna, Lnp-s, Pf, B ivalent, 30 Mcg, IM, 12 yrs and above (DecaWave) 07/28/2022 PPD 10/06/2008 Pneumococcal Conjugate Vacc, 13 Valent (Prevnar) 01/28/2015 Pneumococcal Polysaccharide PPV23 (Pneumovax) 05/30/2007 RSV Vac., Recomb, Adjuvant, PF,0.5 Ml (Arexvy) 08/18/2023 Season Influenza, Quad, PF, Adjuvanted, 65+ Yrs, IM (FLUAD) 06/05/2020 Seasonal Influenza, Quadriva lent Hd (Fluzone Hd) 06/19/2023,06/22/2021 Seasonal Influenza, Split, I IV3, With Preserve, Inj 09/06/2012,08/02/2011,07/27/2010,06/11,09/01/2006 Seasonal Influenza, Trivalen t, Adjuvanted, 65+ yrs 06/07/2019 Seasonal Influenza, Trivalen t, High Dose, No Preserve, IM 07/27/2018 TD, Preservative Free 07/31/2020 TDAP (age 11 and older)(Adacel) 06/11/2009 Varicella Zoster Vaccine (Adult) 08/02/2015 Zoster Vaccine Recombinant (Shingrix) 09/30/2020 ,07/02/2020 documented as of this encounter Social History Tobacco Use Types Packs/Day Years Used Date Smoking Tobacco: Never Smokeless Tobacco: Never Alcohol Use Standard Drinks/Week Comments No 0 (1 standard drink = 0.6 oz pur e alcohol) PHQ-2 Answer Date Recorded PHQ Adult Total Score 0 03/13/2023 Hunger Vital Sign Answer Date Recorded Within the past 12 months, y ou worried that your food would run out before you got the money to buy more. Never true 03/13/20 23 Within the past 12 months, t he food you bought just didn't last and you didn't have money to get more. Never true 03/13/2023 Sex and Gender Information Value Date Recorded Sex Assigned at Male 04/23/2019 8:55 AM EDT Gender Identity Male 04/23/2019 8:55 AM EDT Sexual Orientation Straight 04/23/2019 8: 55 AM EDT Job Start Date Occupation Industry Not on file Not on file Not on file documented as of this encounter Last Filed Vital Signs Vital Sign Reading Time Taken Comments Blood Pressure 130/78 12/15/2023 7:17 PM EDT Pulse 82 12/15/2023 7:17 PM EDT Temperature 36.4 C (97.6 F) 12/15/2023 7:17 PM ED T Respiratory Rate 20 12/15/2023 7:17 PM EDT Oxygen Saturation 98% 12/15/2023 7:17 PM EDT Inhaled Oxygen Concentration - - Weight 98.4 kg (217 lb) 12/15/2023 7:17 PM EDT Height 174 cm (5' 8.5") 12/15/2023 7:17 PM EDT Body Mass Index 32.51 12/15/2023 7:17 PM EDT documented in this encounter Progress Notes * Dhaval Fisher PA-C - 12/15/2023 7:34 PM EDT Subjective Reggie Kessler is a 83 year old male that presents for Other (Wants to know about his Coumadin - taking Lovenox. Have back surgery by Dr. Khan - was to be December 17 and moved to December 18.Tried toget Coumadin Clinic but they had already closed. ) He is having surgery next week that was pushed forward a day. He is here to discuss his lovenox and warfarin schedule. He was previously on coumadin, but has been holding it the last few days. Previously, he was to do lovenox BID through Monday and then on Monday only take the morning dose. Surgery was for Monday. Now Surgery is Monday. Objective BP 130/78 | Pulse 82 | Temp 36.4 C (97.6 F) (Tympanic) | Resp 20 | Ht 1.74 m (5' 8.5") | Wt 98.4 kg (217 lb) | SpO2 98% | BMI 32.51 kg/m | BSA 2.18 m Body mass index is 32.51 kg/m. BP Readings from Last 3 Encounters: 12/15/23 130/78 12/14/23 120/72 12/08/23 130/68 Wt Readings from Last 3 Encounters: 12/15/23 98.4 kg (217 lb) 12/08/23 98.4 kg (216 lb 14.4 oz) 12/01/23 97.3 kg (214 lb 9.6 oz) Physical Exam Vitals and nursing note reviewed. Constitutional: General: He is not in acute distress. Appearance: Normal appearance. He is not ill-appearing, toxic-appearing or diaphoretic. HENT: Head: Normocephalic and atraumatic. Right Ear: External ear normal. Left Ear: External ear normal. Eyes: General: No scleral icterus. Extraocular Movements: Extraocular movements intact. Conjunctiva/sclera: Conjunctivae normal. Pupils: Pupils are equal, round, and reactive to light. Cardiovascular: Rate and Rhythm: Normal rate and regular rhythm. Musculoskeletal: General: Normal range of motion. Cervical back: Normal range of motion and neck supple. No muscular tenderness. Skin: General: Skin is warm and dry. Capillary Refill: Capillary refill takes less than 2 seconds. Neurological: General: No focal deficit present. Mental Status: He is alert and oriented to person, place, and time. Psychiatric: Mood and Affect: Mood normal. Behavior: Behavior normal. Thought Content: Thought content normal. Judgment: Judgment normal. Assessment and plan 1. Anticoagulation adequate Patient will do one more day of BID dosing of lovenox His presurgery day will now be Monday instead of Monday. He will take his morning dose of lovenox Monday and call surgeon office to verify plan. Follow up As above The above was discussed and understanding was expressed. Dhaval Fisher PA-C documented in this encounter Plan of Treatment Upcoming Encounters Date Type Department Care Team (Late st Contact Info) Description 01/01/2024 9:30 AM EDT Anticoagulation Pharmacy, [facility] [address] [facility] [place] [id number] Pharmacist1, [facility] [address] [facility] [place] [address] 03/04/2024 10:20 AM EDT Office Visit General Internal Medicine [facility] [place] [address] [facility] [place] [address] [place] [id number] Ventura Vaughn MD [address] [facility] [place] [address] 03/19/2024 9:00 AM EDT Nurse Only Ancillary [facility] [place] [address] [facility] [place] [facility] [place] [id number] Im, Nurse Annual Wellness [facility] [address] [id number] 03/21/2024 1:40 PM EDT Office Visit Nephrology, [facility] [address] [address] Sandra Stack MD [address] [facility] [place] [id number] 06/04/2024 9:00 AM EDT Laboratory Laboratory [facility] [address] [place] [phone] [place], [facility] [address] [facility] [place] [address] 06/10/2024 11:00 AM EDT Office Visit Hematology/Oncology [facility] [place] [address] [place] [phone] Ledy Jeter CRNP [address] [facility] [place] [id number] Health Maintenance Due Date Last Done Comments Depression Screening 03/13/2024 03/13/2023, 01/29/20 15 GFR 06/02/2024 12/01/2023, 09/01, 08/10/2023, Additional history exists Albumin/Creatinine Ratio 08/10/2024 023, 08/12/2022, 12/13/2021, Additional history exists CKD PHOS USE SMARTSET 38773 08/10/202406/2023, 12/13/2021, 06/18/2020, Additional history exists CKD HGB USE SMARTSET 13657 11/30/202411/30, 12/01/2023, 10/03/2023, Additional history exists COLONOSCOPY-EVERY 5 YRS AGES 18-100 04/19/2027 04/19/2022, 04/19/2022, 03/28/2017, Additional history exists DTaP,Tdap,and Td Vaccines (3 - Td or Tdap) 07/31/2030 07/31/2020, 06/11/2009 Pneumococcal Vaccine: 65+ Years Completed 01/28/2015, 05/30/2007, 09/20/1995 Zoster Vaccines Completed 09/30/2020, 10/2019, 08/02/2015 Influenza Vaccine (FLU shot) Completed , 06/22/2021, 06/05/2020, Additional history exists COVID-19 Vaccine Completed 08/01/2023, , 03/01/2022, Additional history exists GARDASIL-HPV IMMUNIZATION SERIES Aged Out No longer eligible based on patient's age to complete this topic Hepatitis B Aged Out No longer eligi ble based on patient's age to complete this topic MENINGOCOCCAL (MENACTRA/MENVEO) Aged Out No longer eligible based on patient's age to complete this topic documented as of this encounter Medical Devices Not on filedocumented as of this encounter Visit Diagnoses Diagnosis Anticoagulation adequate- Primary Long-term (current) use of anticoagulants documented in this encounter Care Teams Sawmill Supervisor Relationship Specialty Start Date End Date Ventura Vaughn MD [address] [facility], [place] [id number] PCP - General 06/14/10 documented as of this encounter
--- OUTSIDE RECORDS SUMMARY | 2023-12-19 08:20 | External Medical Summary | Summary of Care ---
Author Name Unknown Organization [facility] Address [address] [place] [address] Phone [phone] Care Team Providers Care Lard Renderer Name Role Phone Ventura Vaughn MD Primary Care Provider + Reason for Visit * Reason Comments pre-op exam Back surgery on 12/[address] 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, unspecified laterality (HCC); History of DVT (deep vein thrombosis); Gastroesophageal reflux disease without esophagitis; Idiopathic chronic gout of multiple sites without tophus; Hypertensive kidney disease with stage 3a chronic kidney disease; Mixed hyperlipidemia; Post corneal transplant; Venous insufficiency Allergies Active Allergy Reactions Criticality Noted Date Comments Sulfamethoxazole-Trimethoprim Other (Please comment) 03/09/2023 AVI documented as of this encounter (statuses as of 12/08/2023) Medications Medication Sig Dispensed Refills Start Date End Date Status COLACE 50 MG PO CAPS Take 1 Capsule by mouth in the morning. 0 Active TYLENOL EXTRA STRENGTH 500 MG PO TABS two tabs by mouth bid for fever 100 5 7 Active METAMUCIL 30.9 % PO POWD One tablespoon twice a day 0 2 Active PREDNISOLONE ACETATE 1 % OP SUSP Instill 1 Drop into both eyes every evening. 0 Active Trenton-3 Fatty Acids (FISH OIL) 1200 MG CAPS Take by mouth 1 Capsule daily . 0 Active Vitamin D3 25 MCG (1000 UT) Oral Tablet (Vitamin D3)Indications :Vitamin D deficiency Take 1 Tablet by mouth every other day. 0 2 Active CPAP every night at bedtime . 0 Active Allopurinol 100 MG Oral Tablet (Zyloprim)Amalia cations:Elevat ed uric acid in blood TAKE ONE TABLET BY MOUTH EVERY MORNING AND TAKE ONE TABLET BY MOUTH EVERY DAY BEFORE BEDTIME 180 Tablet 3 3 024 Active prednisoLONE Acetate 1 % Ophthalmic Suspension (Pred Forte) INSTILL ONE DROP INTO BOTH EYES ONCE DAILY 15 mL 3 3 024 Active amLODIPine Besylate 2.5 MG Oral Tablet (Norvasc)Indic ations:Kidney disease, chronic, stage III (GFR 30-59 ml/min) (HCC),HTN, goal below 130/80 TAKE ONE TABLET BY MOUTH EVERY DAY 90 Tablet 3 2 Active Atorvastatin Calcium 10 MG Oral Tablet (Lipitor)Indic ations:Low HDL (under 40) TAKE ONE TABLET BY MOUTH EVERY DAY 90 Tablet 1 3 Active Gabapentin 100 MG Oral Capsule (Neurontin)Ind ications:Lumba r radicular pain Take 2 Capsules by mouth in the morning and 2 Capsules before bedtime. 360 Capsule 1 3 Active Omeprazole 20 MG Oral Capsule Delayed Release (PriLOSEC) TAKE ONE CAPSULE BY MOUTH ONCE DAILY ONE HOUR BEFORE THE FIRST MEAL OF THE DAY 90 Capsule 1 3 Active B-12 1000 MCG Oral Tablet Take by mouth. 0 Active Warfarin Sodium 5 MG Oral Tablet (Coumadin)Amalia cations:Histor y of DVT (deep vein thrombosis) Take 1 Tablet by mouth in the morning. Or as directed by anticoagulation clinic. 90 Tablet 1 3 024 Active Enoxaparin Sodium 80 MG/0.8ML Injection Solution Prefilled Syringe (Lovenox)Indic ations:History of DVT (deep vein thrombosis) Inject 80 mg under the skin in the morning and 80 mg before bedtime. Take as directed by [facility] for upcoming procedure. (10 syringes ordered). 8 mL 0 4 Active Losartan Potassium 50 MG Oral Tablet (Cozaar)Indica tions:HTN, goal below 130/80 Take 1 Tablet by mouth in the morning. 90 Tablet 3 4 Active amLODIPine Besylate 2.5 MG Oral Tablet (Norvasc)Indic ations:HTN, goal below 130/80 Take 1 Tablet by mouth in the morning. HOLD FOR NOW. 0 4 Active Losartan Potassium 25 MG Oral Tablet (Cozaar)Indica tions:Proteinu latoya TAKE 1 TABLET BY MOUTH DAILY 90 Tablet 2 3 024 Discontinued(Me dication/Dose Changed) amLODIPine Besylate 2.5 MG Oral Tablet (Norvasc) Take 1 Tablet by mouth in the morning. 90 Tablet 3 3 024 Discontinued documented as of this encounter (statuses as of 12/08/2023) Active Problems Problem Noted Date Diagnosed Date [...] transplant 01/08/2014 1st degree AV block 12/27/2012 care home current use of anticoagulant therapy 0 05/03/2005 Overview: ICD-10 update of inactive term Anticoagulation management encounter 05/03/2005 Acquired solitary kidney 09/05/2003 Overview: ICD-10 update of inactive term SLEEP APNEA NOS- CPAP Overview: nasal cpap 8 cm documented as of this encounter (statuses as of 12/08/2023) Resolved Problems Problem Noted Date Diagnosed Date [...] update of inactive term Hearing loss 04/23/2019 [facility] lung 02/07/2012 Phlebitis and thrombophlebit is of other deep vessels of lower extremities 03/22/2017 documented as of this encounter (statuses as of 12/08/2023) Immunizations Name Administration Dates Next Due COVID-19 mRNA, LNP-s, No Pre serve, 2-Dose Series ([facility]) 07/28/2021,12/08/2020,11/08/2020 COVID-19, LNP-s, No Preserve , Anderson-sucrose, Ages 12+ ([employer]) 03/01/2022 COVID-19, MRNA-LNP, 23-24, P F, 30 MCG/0.3 mL, 12 YRS AND ABOVE, IM ([facility]) 08/01/2023 Covid-19, Mrna, Lnp-s, Pf, B ivalent, 30 Mcg, IM, 12 yrs and above (Pfizer) 07/28/2022 PPD 10/06/2008 Pneumococcal Conjugate Vacc, 13 [...] Sign Reading Time Taken Comments Blood Pressure 100/72 12/01/2023 12:04 PM EST Pulse 79 12/01/2023 12:04 PM EST Temperature 37 C (98.6 F) 12/01/2023 12:04 PM EST Respiratory Rate - - Oxygen Saturation 95% 12/01/2023 12:04 PM EST Inhaled Oxygen Concentration - - Weight 97.3 kg (214 lb 9.6 oz) 12/01/2023 12:04 PM EST Height 174 cm (5' 8.5") 12/01/2023 12:04 PM EST Body Mass Index 32.16 12/01/2023 12:04 PM EST documented in this encounter Progress Notes * Sherrie Araujo MD - 12/01/2023 12:14 PM EST Images from the original note were not included. Pre-Operative Medical Evaluation Procedure Information Type of Surgery: L3 to S1 decompression and fusion Referring Physician / Surgeon: Dr Khan Date of procedure: 12/18/23 Brief History of Present Illness: 83 year old YOmale with PMH as listed below presents here for preop for L3-S1 decompression with fusion by Dr. Khan scheduled for December 17. Patient has significant past medical history of hypertension, hyperlipidemia, CKD stage 3, anemia of chronic kidney disease DVT on chronic anticoagulation,status post corneal transplant bilateral. Denies Chest pain, SOB, palpitation with walking or exertion. Some imbalance with walking due to back pain. No personal h/o DM, CAD, stroke,PVD History of TYESHA on CPAP. BP low noticed today. Patient is on low dose medications of losartan amlodipine He has been scheduled for preop testing at hospital which I believe includes EKG Review of Systems: Constitutional ROS: No change in weight, No weakness, No fatigue, and No fevers, sweats, or chills Eye ROS: No recent significant change in vision, No eye pain, redness, discharge, No diplopia, No h/o cataracts, No h/o glaucoma, and Positive for h/o corneal transplant Mouth/Throat ROS: No bleeding gums, No thrush, or No sore throat Pulmonary ROS: No cough, sputum, or hemoptysis, No wheezing, No shortness of breath, and No recent change in breathing Cardiovascular ROS: No chest pain, No shortness of breath, No dyspnea on exertion, No orthopnea, Noparoxysmal nocturnal dyspnea, No palpitations, No syncope, and Positive for edema in the evening and stable Gastrointestinal ROS: No abdominal pain, No change in bowel habits, No significant heartburn, No significant change in appetite, No nausea, vomiting, diarrhea, or constipation, No hematemesis, No blood in stools or black tarry stools, No abdominal bloating or early satiety, and No dysphagia Genito-Urinary Male ROS: No dysuria, No frequency, No incontinence, No urgency, Musculoskeletal/Extremities ROS: No pain, redness or swelling on the joints Neurologic ROS: Normal balance, No headaches, No seizures, and No weakness Psychiatric ROS: No depression, No anxiety, and No psychosis Medical History Problem List: 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 ([facility]) (2023) Chronic gout of multiple sites (05/05/2022) Elevated uric acid in blood (12/05/2021) Chronic kidney disease, stage 3a ([facility]) (02/09/2021) Hypertensive kidney disease with stage 3a chronic kidney disease (06/2020) HTN, goal below 130/80 (11/15/2019) Hypertensive kidney disease with stage 3 chronic kidney disease ([facility]) (11/15/2019) Hypophosphatemia (11/15/2019) Venous insufficiency (11/15/2019) Gastroesophageal reflux disease without esophagitis (04/23/2019) Mixed hyperlipidemia (04/23/2019) History of DVT (deep vein thrombosis) (03/22/2018) Kidney disease, chronic, stage III (GFR 30-59 ml/min) (04/11/2016) Bacterial pneumonia (11/30/2014) Post corneal transplant (01/08/2014) 1st degree AV block (12/27/2012) Deviated nasal septum (09/01/2009) ADVANCE DIRECTIVE INFORMATION (09/20/2006) Venous thrombosis (05/03/2005) care home current use of anticoagulant therapy (05/03/2005) Anticoagulation management encounter (05/03/2005) Acquired solitary kidney (09/05/2003) rash--possible from chemical exposure (05/13/2002) Dermatitis (05/13/2002) COPD, severity to be determined ([facility]) (04/26/2001) SLEEP APNEA NOS- CPAP Esophagitis Hearing loss [facility] lung (HCC) Phlebitis and thrombophlebitis of other deep vessels of lower extremities Current Medications Enoxaparin Sodium 80 MG/0.8ML Injection Solution Prefilled Syringe (Lovenox), 80 mg, Subcutaneous, Q12H Warfarin Sodium 5 MG Oral Tablet (Coumadin), 5 mg, Oral, Daily(AM) B-12 1000 MCG Oral Tablet, Take by mouth. Omeprazole 20 MG Oral Capsule Delayed Release (PriLOSEC), TAKE ONE CAPSULE BY MOUTH ONCE DAILY ONE HOUR BEFORE THE FIRST MEAL OF THE DAY Gabapentin 100 MG Oral Capsule (Neurontin), 200 mg, Oral, BID(AM/PM) Atorvastatin Calcium 10 MG Oral Tablet (Lipitor), TAKE ONE TABLET BY MOUTH EVERY DAY amLODIPine Besylate 2.5 MG Oral Tablet (Norvasc), 2.5 mg, Oral, Daily(AM) Losartan Potassium 25 MG Oral Tablet (Cozaar), TAKE 1 TABLET BY MOUTH DAILY Allopurinol 100 MG Oral Tablet (Zyloprim), TAKE ONE TABLET BY MOUTH EVERY MORNING AND TAKE ONE TABLET BY MOUTH EVERY DAY BEFORE BEDTIME prednisoLONE Acetate 1 % Ophthalmic Suspension (Pred Forte), INSTILL ONE DROP INTO BOTH EYES ONCE DAILY CPAP, every night at bedtime . Vitamin D3 25 MCG (1000 UT) Oral Tablet (Vitamin D3), 1,000 Units, Oral, Every other day Trenton-3 Fatty Acids (FISH OIL) 1200 MG CAPS, 1 Capsule, Oral, Daily(AM) PREDNISOLONE ACETATE 1 % OP SUSP, 1 Drop, Both eyes, QPM 2000 METAMUCIL 30.9 % PO POWD, One tablespoon twice a day TYLENOL EXTRA STRENGTH 500 MG PO TABS, two tabs by mouth bid for fever COLACE 50 MG PO CAPS, 50 mg, Oral, Daily(AM) amLODIPine Besylate 2.5 MG Oral Tablet (Norvasc), TAKE ONE TABLET BY MOUTH EVERY DAY Allergies: Bactrim [sulfamethoxazole-trimethoprim] Past Medical History: has a past medical history of Benign neoplasm of colon (02/19/2014), Conductive hearing loss, Dermatitis (05/13/2002), Deviated nasal septum (09/01/2009), Elevated uric acid in blood (12/05/2021), Esophagitis, unspecified, [facility] lung (HCC), Hearing loss, Phlebitis and thrombophlebitis of other deep vessels of lower extremities, Post corneal transplant (01/08/2014), rash--possible from chemical exposure, Sleep apnea, and Venous thrombosis (05/03/2005). Past Surgical History: has a past surgical history that includes laparoscopy; cholecystectomy (2000); information (1995); other (2000, 2002); Repair Initial Incisional or Ventral Hernia; Reducible (07/07/2008); Colonoscopy, Diagnostic (Rectum) (02/19/2014); Colonoscopy, Diagnostic (Rectum) (03/28/2017); Colonoscopy, Diagnostic (Rectum) (04/19/2022); Inject Dx/Ther Substance Interlaminar Lumbar/Sacral W Image Guide (11/03/2022); L-/S-spine Paravertebral facet Inj,1 level (02/20/2023); L-/S-spine Paravertebrl facet Inj,2 levels (02/20/2023); L-/S-spine Paravertebral facet Inj,1 level (03/17/2023); L-/S-spine Paravertebrl facet Inj,2 levels (03/17/2023); and Inject Dx/Ther Substance Interlaminar Lumbar/Sacral W Image Guide (08/03/2023). Social History: reports that he has never smoked. He has never used smokeless tobacco. He reports that he does not drink alcohol and does not use drugs. Family History: family history includes Heart Disorder in his mother; No Past Hx in his father and sister; Obesity in his daughter and son; Other in his son. Anesthesia History Type of Anesthesia: General Endotracheal and Caudal block Anesthesia reaction: No History of surgical complications: no Personal history of venous thromboembolic disease: h/o DVT on coumadin and being followed by [facility] Physical Exam Vitals: 12/01/23 1204 Temp: 37 C (98.6 F) Pulse: 79 SpO2: 95% BP: 100/72 BMI: 32.15 General: alert, healthy, and no distress Head: Normocephalic, No masses, lesions, tenderness or abnormalities Oropharynx: no exudate, no erythema, and lips, buccal mucosa, and tongue normal Neck: supple, no adenopathy, no bruits, thyroid normal size, non-tender, without nodularity Lymph: no palpable lymphadenopathy Heart: regular rate & rhythm, no murmur, and no gallops Lungs: chest symmetric with normal AP diameter, no chest deformities noted, no chest wall tenderness, lungs clear to auscultation Abdomen: abdomen soft, non-tender, normal bowel sounds, and no masses or organomegaly Back: back symmetric, no curvature, Tender paralumbar muscles bilaterally, SLR not checked Extremities: less than 2 second capillary refill, no joint deformities, effusion, or inflammation, trace edema bilateral Neuro Exam: alert & oriented x 3 with fluent speech, no focal motor/sensory deficits, positive findings: Imbalance Labs reviewed and are significant for: CKD stage 3, anemia but stable. EKG by my review is significant for: Last EKG in 2018 which was normal sinus rhythm with first-degree AV block Surgical Risk Scoring Revised Cardiac Risk Index (RCRI) High-risk type of surgery (examples include vascular and any open intraperitoneal or intrathoracic procedures): 0=No History of ischemic heart disease (history of myocardial infarction or positive exercise test, current compliant of chest pain considered to be secondary to myocardia ischemia, use of nitrate therapy, or ECG with pathological Q waves; do not count prior coronary revascularization procedure unless one of the other criteria for ischemic heart disease is present): 0=No History of heart failure: 0=No History of cerebrovascular disease: 0=No Diabetes mellitus requiring treatment with insulin: 0=No Preoperative serum creatinine >2.0 mg/dL (177 micromol/L): 0=No Pt has revised cardiac index score of: No Risk Factors- 0.4% (95% CI: 0.1-0.8) Screening for Obstructive Sleep Apnea (STOP-BANG) Do you Snore loudly? Does not know Do you often feel Tired, Fatigued, or Sleep? 0=No Has anyone Observed you Stop Breathing or Choking/Gasping during sleep? 1=Yes Do you have or are you being treated for High Blood Pressure? 1=Yes BMI over 35? 0=No Age older than 50? 1=Yes Neck size large? (For males - 17 inches or larger, For females - 16 inches or larger) 1=Yes Male? 1=Yes Score 0-2:low risk TYESHA, 3-4: intermediate risk of TYESHA, 5-8: high risk TYESHA 5 Assessment and Plan Preop examination Pt is at low to moderate cardiac risk for this procedure and cleared Hold multivitamin a week before surgery. Should be started after surgery to prevent anemia Need to make sure blood pressure okay with medication change in a week Can hold losartan the day of surgery DDD (degenerative disc disease), lumbar Surgery as planned follow up 1st degree AV block Acquired solitary kidney HTN, goal below 130/80 - Losartan Potassium 50 MG Oral Tablet (Cozaar); Take 1 Tablet by mouth in the morning. 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 The patient's functional status is good (greater than 4 METS). 1 MET: 4 METs: 4-10 METs: Can take care of self, such as eat, dress or use the toilet. Can walk to block or go up a flight of steps. Can do heavy house work. Surgical Risk Assessment Patient is overall mild cardiac risk but indeterminate medical risk for the listed procedure mainlydue to age Medication adjustments: As above Additional consults or testing: Not needed but follow MTM instruction for Froylan pastrana Reviewed lab done for pre testing which is stable, needs to get EKG which he will likely get a pre anesthesia testing Addendum: BP normal and acceptable on med change . Continue to hold amlodipine and continue increased dose oflosartan Sherrie Araujo MD 12/08/2023 4:35 PM documented in this encounter Nursing Notes * Antonia Goff LPN - 12/01/2023 12:03 PM EST Chief Complaint Patient presents with pre-op exam Back surgery on 12/18/[address] Erin MENG documented in this encounter Plan of Treatment Upcoming Encounters Date Type Department Care Team (Late st Contact Info) Description 12/14/2023 9:00 AM EDT Nurse Only Ancillary [facility] [place] [address] [place] [address] Nurse, Int Med [address] [facility] [place] [address] 01/01/2024 9:30 AM EDT Anticoagulation Pharmacy, [facility] [place] [address] [place] [id number] Pharmacist1, [facility] [address] [facility] [place] [address] 03/04/2024 10:20 AM EDT Office Visit General Internal Medicine [facility] [place] [address] [place] [id number] Ventura Vaughn MD [address] [facility] [place] [address] 03/19/2024 9:00 AM EDT Nurse Only Ancillary [facility] [place] [address] [place] [id number] Im, Nurse Annual Wellness [facility] [address] [facility] [place] [address] 03/21/2024 1:40 PM EDT Office Visit Nephrology, [facility] [address] [facility] [place] [address] Sandra Stack MD [address] [facility] [place] [address] 06/04/2024 9:00 AM EDT Laboratory Laboratory [facility] [place] [address] [place] [phone] Park, Lab [facility] [address] [facility] [place] [address] 06/10/2024 11:00 AM EDT Office Visit Hematology/Oncology [facility] [place] [address] [place] [phone] Ledy Jeter CRNP [address] [place] [address], [place] [address] Scheduled Orders Name Type Priority Associated Diagnoses Orde r Schedule BASIC METABOLIC PANEL Lab Routine HTN, goal below 130/80 Expected: 12/08/2023 (Approximate), Expires: 11/30/2024 Health Maintenance Due Date Last Done Comments Depression Screening 03/13/2024 03/13/2023, 01/29/20 15 GFR 06/02/2024 12/01/2023, 09/01, 08/10/2023, Additional history exists Albumin/Creatinine Ratio 08/10/2024 023, 08/12/2022, 12/13/2021, Additional history exists CKD PHOS USE SMARTSET 86689 08/10/202406/2023, 12/13/2021, 06/18/2020, Additional history exists CKD HGB USE SMARTSET 84441 11/30/202411/30, 12/01/2023, 10/03/2023, Additional history exists COLONOSCOPY-EVERY [...] as of this encounter Visit Diagnoses Diagnosis Preop examination- Primary Preoperative examination, unspecified DDD (degenerative disc disease), lumbar Degeneration of lumbar or lumbosacral intervertebral disc 1st degree AV block First degree atrioventricular block Acquired solitary kidney Acquired absence of kidney HTN, goal below 130/80 Unspecified essential hypertension Obstructive sleep apnea syndrome Obstructive sleep apnea (adult) (pediatric) 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, unspecified laterality (HCC) History of DVT (deep vein thrombosis) Personal history of venous thrombosis and embolism Gastroesophageal reflux disease without esophagitis Esophageal reflux Idiopathic chronic gout of multiple sites without tophus Chronic gouty arthropathy without mention of tophus (tophi) Hypertensive kidney disease with stage 3a chronic kidney disease Mixed hyperlipidemia Post corneal transplant Cornea replaced by transplant Venous insufficiency Unspecified venous (peripheral) insufficiency documented in this encounter Care Teams Lard Renderer Relationship Specialty Start Date End Date Ventura Vaughn MD [address] [facility] [place] [address] PCP - General 06/14/10 documented as of this encounter
--- OUTSIDE RECORDS SUMMARY | 2023-12-19 08:20 | External Medical Summary | Summary of Care ---
Author Name Unknown Organization [facility] Address [address] [place] [address] Phone [phone] Care Team Providers Care Crossing Watchman Name Role Phone Ventura Vaughn MD Primary Care Provider + Reason for Visit * Reason Onset Date Comments Medication Question 12/07/2023 Encounter Details Date Type Department Care Team (Late st Contact Info) Description 12/07/2023 Telephone Nephrology, [facility] [address] [place] [address] Sandra Stack MD [address] [place] [address] Medication Question Allergies Active Allergy Reactions Criticality Noted Date [...] into both eyes every evening. 0 Active Slater-3 Fatty Acids (FISH OIL) 1200 MG CAPS [...] EVERY DAY 90 Tablet 3 05/30/2022 Active Atorvastatin Calcium 10 MG Oral Tablet (Lipitor)Indicat ions:Low HDL (under 40) TAKE ONE TABLET BY MOUTH EVERY DAY 90 Tablet 1 06/20/2023 Active Gabapentin 100 MG Oral Capsule (Neurontin)Indic [...] morning. HOLD FOR NOW. 0 12/01/2023 Active documented as of this encounter (statuses [...] update of inactive term Hearing loss 04/23/2019 [place]' lung 02/07/2012 Phlebitis and thrombophlebit is of other deep vessels of lower extremities 03/22/2017 documented as of this encounter (statuses as of 12/08/2023) Immunizations Name Administration Dates Next Due COVID-19 mRNA, LNP-s, No Pre serve, 2-Dose Series ([employer]) 07/28/2021,12/08/2020,11/08/2020 COVID-19, LNP-s, No Preserve , Anderson-sucrose, Ages 12+ ([employer]) 03/01/2022 COVID-19, MRNA-LNP, 23-24, P F, 30 MCG/0.3 mL, 12 YRS AND ABOVE, IM ([facility]) 08/01/2023 Covid-19, Mrna, Lnp-s, Pf, B ivalent, 30 Mcg, IM, 12 yrs and above ([employer]) 07/28/2022 PPD 10/06/2008 Pneumococcal Conjugate Vacc, 13 Valent (Prevnar) 01/28/2015 Pneumococcal Polysaccharide PPV23 (Pneumovax) 05/30/2007,09/20/1995 RSV Vac., Recomb, Adjuvant, PF,0.5 Ml (Arexvy) 08/18/2023 Season Influenza, Quad, PF, Adjuvanted, 65+ Yrs, IM (FLUAD) 06/05/2020 Seasonal Influenza, Quadriva lent Hd (Fluzone Hd) 06/19/2023,06/22/2021 Seasonal Influenza, Split, I IV3, With Preserve, Inj 09/06/2012,08/02/2011,07/27/2010,06/11,09/01/2006,09/05/2003 Seasonal Influenza, Trivalen t, Adjuvanted, 65+ yrs [...] on file documented as of this encounter Miscellaneous Notes * Telephone Encounter - Sandra Stack MD - 12/08/2023 3:20 PM EST Recommend/prefer home monitor if able; ok w/ Dr Sherrie araujo's changes; repeat bmp after 10 day sand bp too if not home monitoring; prefer repeat bp w/ us * Telephone Encounter - Karyn Amaya RN - 12/08/2023 9:53 AM EST Pt is following with PCP and having blood pressures monitored. * Telephone Encounter - Daisy Tang OSA - 12/07/2023 11:20 AM EST 12/07/23 called patient to schedule a sooner appointment. Patient stated that he saw Sherrie Araujo on 12/01/23 and his blood pressure was low. Sherrie took him off of amLODIPine Besylate 2.5 MG Oral Tablet and upped his dosage of Losartan Potassium to 50 mg. Patient wants to know if that is okay for his kidney's. Please call patient back to let him know if that is okay with Dr. Stack. documented in this encounter Plan of Treatment Upcoming Encounters Date Type Department Care Team (Late st Contact Info) Description 01/01/2024 9:30 AM EDT Anticoagulation Pharmacy, [facility] [place] [address] [facility] [place] [address] Pharmacist1, [facility] [address] [place] [address] 03/04/2024 10:20 AM EDT Office Visit General Internal Medicine [facility] [place] [address] [place] [address] Ventura Vaughn MD 200 [facility] [place] [address] 03/19/2024 9:00 AM EDT Nurse Only Ancillary [facility] [place] [address] [facility] [place] [address] Im, Nurse Annual Wellness [facility] [address] [place] [address] 03/21/2024 1:40 PM EDT Office Visit Nephrology, [facility] [address] [place] [address] [address] Sandra Stack MD [address] [place] [address] 06/04/2024 9:00 AM EDT Laboratory Laboratory [facility] [place] [address] [place] [address] [phone] Jovanny Hines [facility] [address] [facility] [place] [address] 06/10/2024 11:00 AM EDT Office Visit Hematology/Oncology [facility] [place] [address] [facility] [place] [address] Ledy Jeter, LETI [address] [place] [address] Health Maintenance Due Date Last Done Comments Depression Screening 03/13/2024 03/13/2023, 01/29/20 15 GFR 06/02/2024 12/01/2023, 09/01, 08/10/2023, Additional history exists Albumin/Creatinine Ratio 08/10/2024 023, 08/12/2022, 12/13/2021, Additional history exists CKD PHOS USE SMARTSET 13400 08/10/202406/2023, 12/13/2021, 06/18/2020, Additional history exists CKD HGB USE SMARTSET 41671 11/30/202411/30, 12/01/2023, 10/03/2023, Additional history exists COLONOSCOPY-EVERY [...] Not on filedocumented as of this encounter Care Teams Crossing Watchman Relationship Specialty Start Date End Date Ventura Vaughn MD [address] [place] [address] PCP - General 06/14/10 documented as of this encounter
--- OUTSIDE RECORDS SUMMARY | 2023-12-19 08:20 | External Medical Summary | Summary of Care ---
Author Name Unknown Organization [facility] Address [address] [place] [address] Phone [phone] Care Team Providers Care Web Analyst Name Role Phone Ventura Vaughn MD Primary Care Provider + Reason for Visit * Reason Onset Date Comments Advice 12/08/2023 Encounter Details Date Type Department Care Team (Late st Contact Info) Description 12/08/2023 Telephone General Internal Medicine [facility] 200 [facility] [place] [address] Sherrie Araujo MD [address] [place] [address] Advice Allergies Active Allergy Reactions Criticality Noted Date [...] into both eyes every evening. 0 Active Lutts-3 Fatty Acids (FISH OIL) 1200 MG CAPS [...] transplant 01/08/2014 [address] AV block 12/27/2012 [facility] current use of anticoagulant therapy 0 05/03/2005 [...] update of inactive term Hearing loss 04/23/2019 [place]' lung 02/07/2012 Phlebitis and thrombophlebit is of other deep vessels of lower extremities 03/22/2017 documented as of this encounter (statuses as of 12/08/2023) Immunizations Name Administration Dates Next Due COVID-19 mRNA, LNP-s, No Pre serve, 2-Dose Series ([employer] 07/28/2021,12/08/2020,11/08/2020 COVID-19, LNP-s, No Preserve , Anderson-sucrose, Ages 12+ ([employer] 03/01/2022 COVID-19, MRNA-LNP, 23-24, P F, 30 MCG/0.3 mL, 12 YRS AND ABOVE, IM ([facility] 08/01/2023 Covid-19, Mrna, Lnp-s, Pf, B ivalent, 30 Mcg, IM, 12 yrs and above ([employer] 07/28/2022 PPD 10/06/2008 Pneumococcal Conjugate Vacc, 13 [...] encounter Miscellaneous Notes * Telephone Encounter - Keisha Jeter MED ASSIST - 12/08/2023 4:39 PM EST Surgery pre op clearance and office visit notes faxed to [facility] at [phone] Fax successful documented in this encounter Plan of Treatment Upcoming Encounters Date Type Department Care Team (Late st Contact Info) Description 12/14/2023 9:00 AM EDT Nurse Only Ancillary [facility] [place] [address] [address] Nurse, Int Med [address] [address] 01/01/2024 9:30 AM EDT Anticoagulation Pharmacy, [place] [address] [place] [address] Pharmacist1, [facility] 200 [facility] [place] [place] [address] 03/04/2024 10:20 AM EDT Office Visit General Internal Medicine [facility] [place] [address] [place] [address] Ventura Vaughn MD 200 [facility] [place] [address] 03/19/2024 9:00 AM EDT Nurse Only Ancillary [facility] [place] [address] [facility] [place] [address] Im, Nurse Annual Wellness [facility] [address] [facility] [address] 03/21/2024 1:40 PM EDT Office Visit Nephrology, [facility] [address] [facility] [address] Sandra Stack MD [address] [facility] [address] 06/04/2024 9:00 AM EDT Laboratory Laboratory [facility] [place] [address] [place] [phone] [place], Lab [facility] [address] [facility] [place] [address] 06/10/2024 11:00 AM EDT Office Visit Hematology/Oncology [facility] [place] [address] [facility] [phone] Ledy Jeter CR[facility] [place] [id number] Health Maintenance Due Date Last Done Comments Depression Screening 03/13/2024 03/13/2023, 01/29/20 15 GFR 06/02/2024 12/01/2023, 09/01, 08/10/2023, Additional history exists Albumin/Creatinine Ratio 08/10/2024 023, 08/12/2022, 12/13/2021, Additional history exists CKD PHOS USE SMARTSET 47428 08/10/20240 06/2023, 12/13/2021, 06/18/2020, Additional history exists CKD HGB USE SMARTSET 67027 11/30/202411/30, 12/01/2023, 10/03/2023, Additional history exists COLONOSCOPY-EVERY [...] filedocumented as of this encounter Care Teams Web Analyst Relationship Specialty Start Date End Date Ventura Vaughn MD [address] [place] [address] PCP - General 06/14/10 documented as of this encounter
--- OUTSIDE RECORDS SUMMARY | 2023-12-19 08:20 | External Medical Summary | Summary of Care ---
Author Name Unknown Organization [facility] Address [address] [place] [address] Phone [phone] Care Team Providers Care Library Aide Name Role Phone Ventura Álvarez MD Primary Care Provider + Reason for Visit * Reason Comments Medication Refill Encounter Details Date Type Department Care Team (Late st Contact Info) Description 12/14/2023 Refill General Internal Medicine [facility] 200 [facility] [place] [address] Ventura Álvarez MD [address] [place] [address] Low HDL (under 40) Allergies Active Allergy Reactions Criticality Noted Date [...] into both eyes every evening. 0 Active Ronda-3 Fatty Acids (FISH OIL) 1200 MG CAPS Take by mouth 1 Capsule daily . 0 Active Vitamin D3 25 MCG (1000 UT) Oral Tablet (Vitamin D3)Indications: Vitamin D deficiency Take 1 Tablet by mouth every other day. 0 12/16/2021 Active CPAP every night at bedtime . 0 Active Allopurinol 100 MG Oral Tablet (Zyloprim)Indic ations:Elevated uric acid in blood TAKE ONE TABLET BY MOUTH EVERY MORNING AND TAKE ONE TABLET BY MOUTH EVERY DAY BEFORE BEDTIME 180 Tablet 3 02/06/2023 02/28/20 24 Active prednisoLONE Acetate 1 % Ophthalmic Suspension (Pred Forte) INSTILL ONE DROP INTO BOTH EYES ONCE DAILY 15 mL 3 11/29/2022 03/03/20 24 Active Gabapentin 100 MG Oral Capsule (Neurontin)Amalia cations:Lumbar radicular pain Take 2 Capsules by mouth [...] Active Warfarin Sodium 5 MG Oral Tablet (Coumadin)Indic ations:History of DVT (deep vein thrombosis) Take 1 Tablet by mouth in the morning. Or as directed by anticoagulation clinic. 90 Tablet 1 09/26/2023 09/25/20 24 Active Enoxaparin Sodium 80 MG/0.8ML Injection Solution Prefilled Syringe (Lovenox)Indica tions:History of DVT (deep vein thrombosis) Inject 80 mg under the skin in the morning and 80 mg before bedtime. Take as directed by anticoag clinic for upcoming procedure. (10 syringes ordered). 8 mL 0 12/01/2023 Active Losartan Potassium 50 MG Oral Tablet (Cozaar)Indicat ions:HTN, goal below 130/80 Take 1 Tablet by mouth in the morning. 90 Tablet 3 12/01/2023 Active amLODIPine Besylate 2.5 MG Oral Tablet (Norvasc)Indica tions:HTN, goal below 130/80 Take 1 Tablet by mouth in the morning. HOLD FOR NOW. 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 0 05/03/2005 [...] update of inactive term Hearing loss 04/23/2019 [place]' lung 02/07/2012 Phlebitis and thrombophlebit is of other deep vessels of lower extremities 03/22/2017 documented as of this encounter (statuses as of 12/15/2023) Immunizations Name Administration Dates Next Due COVID-19 mRNA, LNP-s, No Pre serve, 2-Dose Series ([employer]) 07/28/2021,12/08/2020,11/08/2020 COVID-19, LNP-s, No Preserve , Anderson-sucrose, Ages 12+ ([employer]) 03/01/2022 COVID-19, MRNA-LNP, 23-24, P F, 30 MCG/0.3 mL, 12 YRS AND ABOVE, IM ([employer]) 08/01/2023 Covid-19, Mrna, Lnp-s, Pf, B ivalent, 30 Mcg, IM, 12 yrs and above ([employer]) 07/28/2022 PPD 10/06/2008 Pneumococcal Conjugate Vacc, 13 [...] encounter Miscellaneous Notes * Telephone Encounter - Radha Khanna RPh - 12/15/2023 9:09 AM EDTSigned Prescriptions: Disp Refills Atorvastatin Calcium 10 MG Oral Tablet (Li*90 Tab*1 Sig: TAKE ONE TABLET BY MOUTH EVERY DAYAuthorizing Provider: VENTURA ÁLVAREZ User: RADHA KHANNA documented in this encounter Plan of Treatment Upcoming Encounters Date Type Department Care Team (Late st Contact Info) Description 01/01/2024 9:30 AM EDT Anticoagulation Pharmacy, [facility] 200 [facility] [place] [address] Pharmacist1, [facility] 200 [facility] [place] [address] 03/04/2024 10:20 AM EDT Office Visit General Internal Medicine [facility] [place] [address] [place] [address] Ventura Álvarez MD [address] [facility] [place] [address] 03/19/2024 9:00 AM EDT Nurse Only Ancillary [facility] [place] [address] [facility] [place] [address] Im, Nurse Annual Wellness [facility] [address] [facility] [place] [address] 03/21/2024 1:40 PM EDT Office Visit Nephrology, [facility] [address] [facility] [place] [address] Sandra Stack MD [address] [facility] [place] [address] 06/04/2024 9:00 AM EDT Laboratory Laboratory [facility] [place] [address] [facility] [place] [phone] [place], Lab [facility] [address] [facility] [place] [address] 06/10/2024 11:00 AM EDT Office Visit Hematology/Oncology [facility] [place] [address] [facility] [place] [phone] Ledy Jeter CRNP [address] [facility] [place] [address] Health Maintenance Due Date Last Done Comments Depression Screening 03/13/2024 03/13/2023, 01/29/20 15 GFR 06/02/2024 12/01/2023, 09/01, 08/10/2023, Additional history exists Albumin/Creatinine Ratio 08/10/2024 023, 08/12/2022, 12/13/2021, Additional history exists CKD PHOS USE SMARTSET 81259 08/10/202406/2023, 12/13/2021, 06/18/2020, Additional history exists CKD HGB USE SMARTSET 52102 11/30/202411/30, 12/01/2023, 10/03/2023, Additional history exists COLONOSCOPY-EVERY [...] as of this encounter Visit Diagnoses Diagnosis 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
--- OUTSIDE RECORDS SUMMARY | 2023-12-19 08:20 | External Medical Summary | Summary of Care ---
Author Name Unknown Organization [facility] Address [address] [place] [address] Phone [phone] Care Team Providers Care Religion Teacher Name Role Phone Ventura Vaughn MD Primary Care Provider + Encounter Details Date Type Department Care Team (Late st Contact Info) Description 12/16/2023 Telephone Pharmacy, [place] 21 [facility] [place] [address] [facility] [address] [place] [address] Allergies Active Allergy Reactions Criticality Noted Date Comments Sulfamethoxazole-Trimethoprim Other (Please comment) 03/09/2023 AVI documented as of this encounter (statuses as of 12/16/2023) Medications Medication Sig Dispensed Refills Start Date [...] into both eyes every evening. 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 therapy 0 05/03/2005 Overview: ICD-10 update of inactive term Anticoagulation management encounter 05/03/2005 Acquired solitary kidney 09/05/2003 Overview: ICD-10 update of inactive term SLEEP APNEA NOS- CPAP Overview: nasal cpap 8 cm documented as of this encounter (statuses as of 12/16/2023) Resolved Problems Problem Noted Date Diagnosed Date [...] update of inactive term Hearing loss 04/23/2019 [place]' lung 02/07/2012 Phlebitis and thrombophlebit is of other deep vessels of lower extremities 03/22/2017 documented as of this encounter (statuses as of 12/16/2023) Immunizations Name Administration Dates Next Due COVID-19 mRNA, LNP-s, No Pre serve, 2-Dose Series ([employer]) 07/28/2021,12/08/2020,11/08/2020 COVID-19, LNP-s, No Preserve , Anderson-sucrose, Ages 12+ ([employer]) 03/01/2022 COVID-19, MRNA-LNP, 23-24, P F, 30 MCG/0.3 mL, 12 YRS AND ABOVE, IM ([employer]) 08/01/2023 Covid-19, Mrna, Lnp-s, Pf, B ivalent, 30 Mcg, IM, 12 yrs and above ([employer]) 07/28/2022 PPD 10/06/2008 Pneumococcal Conjugate Vacc, 13 [...] encounter Miscellaneous Notes * Telephone Encounter - Melissa Novak RPh - 12/16/2023 11:35 AM EDT Patient left message on [employer] on 12/14 stating that his procedure has been delayed from 12/17 to 12/18. He was questioning what to do with Lovenox. Patient Phone Numbers Spoke to patient via phone. Patient went to [facility] yesterday for instructions. See 12/14 encounter. Patient was instructed to use Lovenox BID on 12/16, then just AM dose on 12/17, which will now be the day prior to surgery. Advised that this is also what [facility] would instruct patient to do. FYI to managing clinic - patient will run out of Lovenox early, will need 2 more Lovenox syringes. Melissa Novak, PharmD, [facility] Clinical Pharmacist 12/16/2023, 11:38 AM documented in this encounter Plan of Treatment Upcoming Encounters Date Type Department Care Team (Late st Contact Info) Description 01/01/2024 9:30 AM EDT Anticoagulation Pharmacy, [facility] [place] [address] [place] [address] Pharmacist1, [facility] 200 [facility] [place] [address] 03/04/2024 10:20 AM EDT Office Visit General Internal Medicine [facility] [place] 200 [facility] [place] [address] Ventura Vaughn MD 200 [facility] [place] [address] 03/19/2024 9:00 AM EDT Nurse Only Ancillary [facility] [place] 200 [facility] [place] [address] Im, Nurse Annual Wellness [facility] [address] [address] 03/21/2024 1:40 PM EDT Office Visit Nephrology, [facility] [address] [address] Sandra Stack MD 200 [facility] [place] [address] 06/04/2024 9:00 AM EDT Laboratory Laboratory [facility] [place] [address] [phone] [place], Lab [place] [address] [address] 06/10/2024 11:00 AM EDT Office Visit Hematology/Oncology [facility] [place] [address] [address] Ledy Jeter CRNP [address] [place] [phone] Health Maintenance Due Date Last Done Comments Depression Screening 03/13/2024 03/13/2023, 01/29/20 15 GFR 06/02/2024 12/01/2023, 09/01, 08/10/2023, Additional history exists Albumin/Creatinine Ratio 08/10/2024 023, 08/12/2022, 12/13/2021, Additional history exists CKD PHOS USE SMARTSET 98014 08/10/202406/2023, 12/13/2021, 06/18/2020, Additional history exists CKD HGB USE SMARTSET 37857 11/30/202411/30, 12/01/2023, 10/03/2023, Additional history exists COLONOSCOPY-EVERY [...] filedocumented as of this encounter Care Teams Religion Teacher Relationship Specialty Start Date End Date Ventura Vaughn MD [address] [place] [address] PCP - General 06/14/10 documented as of this encounter
--- OUTSIDE RECORDS SUMMARY | 2023-12-19 08:20 | External Medical Summary | Summary of Care ---
Author Name Unknown Organization [facility] Address [address] [place] [address] Phone [phone] Care Team Providers Care Financial Accountant Name Role Phone Ventura Vaughn MD Primary Care Provider + Reason for Visit * Reason Onset Date Comments Medication Question 12/07/2023 Encounter Details Date Type Department Care Team (Late st Contact Info) Description 12/07/2023 Telephone Nephrology, [facility] [address] [place] [address] Sandra Stack MD [address] [place] [address] Medication Question Allergies Active Allergy Reactions Criticality [...] into both eyes every evening. 0 Active [place]-3 Fatty Acids (FISH OIL) 1200 MG CAPS [...] transplant 01/08/2014 1st degree AV block 12/27/2012 alf current use of anticoagulant therapy 0 05/03/2005 [...] update of inactive term Hearing loss 04/23/2019 [place]' lung 02/07/2012 Phlebitis and thrombophlebit is of other deep vessels of lower extremities 03/22/2017 documented as of this encounter (statuses as of 12/08/2023) Immunizations Name Administration Dates Next Due COVID-19 mRNA, LNP-s, No Pre serve, 2-Dose Series ([employer]) 07/28/2021,12/08/2020,11/08/2020 COVID-19, LNP-s, No Preserve , Anderson-sucrose, Ages 12+ ([employer]) 03/01/2022 COVID-19, MRNA-LNP, 23-24, P F, 30 MCG/0.3 mL, 12 YRS AND ABOVE, IM ([facility]) 08/01/2023 Covid-19, Mrna, Lnp-s, Pf, B ivalent, 30 Mcg, IM, 12 yrs and above ([employer]) 07/28/2022 PPD 10/06/2008 Pneumococcal Conjugate Vacc, 13 [...] encounter Miscellaneous Notes * Telephone Encounter - Karyn Amaya RN [...] Description 01/01/2024 9:30 AM EDT Anticoagulation Pharmacy, [facility] [place] [address] [facility] [place] [address] Pharmacist1, [facility] [address] [facility] [place] [address] 03/04/2024 10:20 AM EDT Office Visit General Internal Medicine [facility] [place] [address] [facility] [place] [address] Ventura Vaughn MD [address] [facility] [place] [address] 03/19/2024 9:00 AM EDT Nurse Only Ancillary [facility] [place] [address] [facility] [place] [address] Im, Nurse Annual Wellness [facility] [address] [facility] [place] [address] 03/21/2024 1:40 PM EDT Office Visit Nephrology, [facility] [address] [facility] [place] [address] Sandra Stack MD [address] [facility] [place] [address] 06/04/2024 9:00 AM EDT Laboratory Laboratory [facility] [place] [address] [place] [phone] [facility] [facility] [place] [address] [place] [address] 06/10/2024 11:00 AM EDT Office Visit Hematology/Oncology [facility] [place] [address] [place] [place] [phone] Ledy Jeter CRNP [address] [place], [place] [address] [address] Health Maintenance Due Date Last Done Comments Depression Screening 03/13/2024 03/13/2023, 01/29/20 15 GFR 06/02/2024 12/01/2023, 09/01, 08/10/2023, Additional history exists Albumin/Creatinine Ratio 08/10/2024 023, 08/12/2022, 12/13/2021, Additional history exists CKD PHOS USE SMARTSET 79895 08/10/202406/2023, 12/13/2021, 06/18/2020, Additional history exists CKD HGB USE SMARTSET 70030 11/30/202411/30, 12/01/2023, 10/03/2023, Additional history exists COLONOSCOPY-EVERY [...] filedocumented as of this encounter Care Teams Financial Accountant Relationship Specialty Start Date End Date Ventura Vaughn MD [address] [place] [address] PCP - General 06/14/10 documented as of this encounter
--- OUTSIDE RECORDS SUMMARY | 2023-12-19 08:20 | External Medical Summary | Summary of Care ---
Author Name Unknown Organization [facility] Address [address] [place] [address] Phone [phone] Care Team Providers Care Heavy Forging Machine Operator Name Role Phone Ventura Vaughn MD Primary Care Provider + Encounter Details Date Type Department Care Team (Late st Contact Info) Description 12/16/2023 Telephone Pharmacy, [place] [address] [place] [address] [facility] [address] [place], [place] [phone] Allergies Active Allergy Reactions Criticality Noted Date Comments Sulfamethoxazole-Trimethoprim Other (Please comment) 03/09/2023 AVI documented as of this encounter (statuses as of 12/18/2023) Medications Medication Sig Dispensed Refills Start Date [...] into both eyes every evening. 0 Active [place]-3 Fatty Acids (FISH OIL) 1200 MG CAPS [...] 15 mL 3 11/29/2022 03/03/20 24 Active amLODIPine Besylate 2.5 MG Oral Tablet (Norvasc)Indica tions:Kidney disease, chronic, stage III (GFR 30-59 ml/min) (HCC),HTN, goal below 130/80 TAKE ONE TABLET BY MOUTH EVERY DAY 90 Tablet 3 05/30/2022 Active Gabapentin 100 MG Oral Capsule (Neurontin)Amalia [...] 90 Tablet 1 09/26/2023 09/25/20 24 Active Losartan Potassium 50 MG Oral Tablet [...] EVERY DAY 90 Tablet 1 12/15/2023 Active Enoxaparin Sodium 80 MG/0.8ML Injection Solution Prefilled Syringe (Lovenox)Indica tions:History of DVT (deep vein thrombosis) Inject 80 mg under the skin in the morning and 80 mg before bedtime. Take as directed by anticoag clinic for upcoming procedure. (2 syringes ordered). 1.6 mL 0 12/18/2023 Active Enoxaparin Sodium 80 MG/0.8ML Injection Solution Prefilled Syringe (Lovenox)Indica tions:History of DVT (deep vein thrombosis) Inject 80 mg under the skin in the morning and 80 mg before bedtime. Take as directed by anticoag clinic for upcoming procedure. (10 syringes ordered). 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 use of anticoagulant therapy 0 05/03/2005 Overview: ICD-10 update of inactive term Anticoagulation management encounter 05/03/2005 Acquired solitary kidney 09/05/2003 Overview: ICD-10 update of inactive term SLEEP APNEA NOS- CPAP Overview: nasal cpap 8 cm documented as of this encounter (statuses as of 12/18/2023) Resolved Problems Problem Noted Date Diagnosed Date [...] update of inactive term Hearing loss 04/23/2019 [place]' lung 02/07/2012 Phlebitis and thrombophlebit is of other deep vessels of lower extremities 03/22/2017 documented as of this encounter (statuses as of 12/18/2023) Immunizations Name Administration Dates Next Due COVID-19 mRNA, LNP-s, No Pre serve, 2-Dose Series ([employer]) 07/28/2021,12/08/2020,11/08/2020 COVID-19, LNP-s, No Preserve , Anderson-sucrose, Ages 12+ (Pfizer) 03/01/2022 COVID-19, MRNA-LNP, 23-24, P F, 30 MCG/0.3 mL, 12 YRS AND ABOVE, IM ([employer]) 08/01/2023 Covid-19, Mrna, Lnp-s, Pf, B ivalent, 30 Mcg, IM, 12 yrs and above ([employer]) 07/28/2022 PPD 10/06/2008 Pneumococcal Conjugate Vacc, 13 [...] as of this encounter Miscellaneous Notes * Addendum Note - Bettina Patel RPh - 12/18/2023 8:22 AM EDT Addended by: BETTINA PATEL on: 12/18/2023 08:22 AM Modules accepted: Orders * Telephone Encounter - Bettina Patel RPh - 12/18/2023 8:17 AM EDT 2 lovenox syringes sent in to pharmacy in case patient does not receive any of the hospitals supplyduring his stay. Bettina Patel PharmD, BCACP, [facility] Clinical Pharmacist 12/18/2023, 8:21 AM * Telephone Encounter - Melissa Novak RP - 12/16/2023 11:35 AM EDT Patient left message on [employer] on 12/14 stating that his procedure has been delayed from 12/17 to 12/18. He was questioning what to do with Lovenox. Patient Phone Numbers Spoke to patient via phone. Patient went to [facility] yesterday for instructions. See 12/14 encounter. Patient was instructed to use Lovenox BID on 12/16, then just AM dose on 12/17, which will now be the day prior to surgery. Advised that this is also what [facility] would instruct patient to do. FYI to managing clinic - patient will run out of Lovenox early, will need 2 more Lovenox syringes. Melissa Novak PharmD, [facility] Clinical Pharmacist 12/16/2023, 11:38 AM documented in this encounter Plan of Treatment Upcoming Encounters Date Type Department Care Team (Late st Contact Info) Description 01/01/2024 9:30 AM EDT Anticoagulation Pharmacy, [facility] [place] [address] [place] [address] Pharmacist1, [facility] [address] [place] [address] 03/04/2024 10:20 AM EDT Office Visit General Internal Medicine [facility] [place] [address] [place] [address] Ventura Vaughn MD [address] [place] [address] [address] 03/19/2024 9:00 AM EDT Nurse Only Ancillary [facility] [place] [address] [facility] [place] [address] Im, Nurse Annual Wellness [facility] [address] [facility] [place] [address] 03/21/2024 1:40 PM EDT Office Visit Nephrology, [facility] [address] [facility] [place] [address] Sandra Stack MD [address] [facility] [place] [address] 06/04/2024 9:00 AM EDT Laboratory Laboratory [facility] [place] [address] [facility] [place] [phone] [place], Lab [facility] [address] [facility] [place] [address] 06/10/2024 11:00 AM EDT Office Visit Hematology/Oncology [facility] [place] [address] [facility] [place] [phone] Ledy Jeter, LETI [address] [facility] [place] [address] Health Maintenance Due Date Last Done Comments Depression Screening 03/13/2024 03/13/2023, 01/29/20 15 GFR 06/02/2024 12/01/2023, 09/01, 08/10/2023, Additional history exists Albumin/Creatinine Ratio 08/10/20242 023, 08/12/2022, 12/13/2021, Additional history exists CKD PHOS USE SMARTSET 95530 08/10/2024 11/0 06/2023, 12/13/2021, 06/18/2020, Additional history exists CKD HGB USE SMARTSET 67425 11/30/202411/30, 12/01/2023, 10/03/2023, Additional history exists COLONOSCOPY-EVERY [...] as of this encounter Visit Diagnoses Diagnosis History of DVT (deep vein thrombosis) Personal history of venous thrombosis and embolism documented in this encounter Care Teams Heavy Forging Machine Operator Relationship Specialty Start Date End Date Ventura Vaughn MD 200 [place] [address] PCP - General 06/14/10 documented as of this encounter
--- OUTSIDE RECORDS SUMMARY | 2023-12-19 08:20 | External Medical Summary | Summary of Care ---
Author Name Unknown Organization [facility] Address [address] [place] [address] Phone [phone] Care Team Providers Care Correctional Manager Name Role Phone Ventura Vaughn MD Primary Care Provider + Reason for Visit * Reason Onset Date Comments Blood Pressure Check 12/08/2023 Encounter Details Date Type Department Care Team (Late st Contact Info) Description 12/08/2023 Telephone General Internal Medicine [facility] [address] [place] [address] Sherrie Araujo MD [address] [place] [address] Blood Pressure Check Allergies Active Allergy Reactions Criticality Noted Date [...] into both eyes every evening. 0 Active [place]-3 Fatty Acids (FISH OIL) 1200 MG CAPS [...] transplant 01/08/2014 1st degree AV block 12/27/2012 halfway current use of anticoagulant therapy 0 05/03/2005 [...] update of inactive term Hearing loss 04/23/2019 [place]' lung 02/07/2012 Phlebitis and thrombophlebit is of other deep vessels of lower extremities 03/22/2017 documented as of this encounter (statuses as of 12/08/2023) Immunizations Name Administration Dates Next Due COVID-19 mRNA, LNP-s, No Pre serve, 2-Dose Series ([employer]) 07/28/2021,12/08/2020,11/08/2020 COVID-19, LNP-s, No Preserve , Anderson-sucrose, Ages 12+ ([employer]) 03/01/2022 COVID-19, MRNA-LNP, 23-24, P F, 30 MCG/0.3 mL, 12 YRS AND ABOVE, IM ([facility]) 08/01/2023 Covid-19, Mrna, Lnp-s, Pf, B ivalent, 30 Mcg, IM, 12 yrs and above ([employer]) 07/28/2022 PPD 10/06/2008 Pneumococcal Conjugate Vacc, 13 [...] money to buy more. Never true 03/13/20 Within the past 12 months, t he [...] encounter Miscellaneous Notes * Telephone Encounter - Rachell Bermudez LPN - 12/08/2023 3:48 PM EST Patient aware and verbalized understanding, would like BP checked before the 12/18/23 due to being scheduled for surgery 12/18/23. BP check was scheduled 12/14/23 * Telephone Encounter - Antonia Goff LPN - 12/08/2023 2:25 PM EST Left message for patient to call back regarding message below. * Telephone Encounter - Antonia Goff LPN - 12/08/2023 2:[address] Araujo: Just to make sure he understands that I doubled losartan to 50 but also stopped amlodipine due to low BP at last visit for convenience and to avoid getting his BP to low So BP this time higher but in range than last time and not as low Ok to recheck BP * Telephone Encounter - Antonia Goff LPN - 12/08/2023 9:08 AM EST Reggie Kessler presented for blood pressure check per provider orders. The blood pressure was obtained using the left arm in the sitting position using a adult cuff. The results were charted in Vital Signs. BP Readings from Last 3 Encounters: 12/08/23 130/68 12/08/23 135/79 12/01/23 100/72 BP 130/68 Patient denies headache, pressure in head, dizziness, lightheadedness, chest discomfort, focal neurological symptoms, change in vision, nose bleeds. Did patient take medications today? Yes Patient was instructed to follow-up as per their next scheduled appt Patient is concerned that his blood pressure has been fluctuating and wants to make sure doubling his losartan is not going to be too much. He would like to have his blood pressure checked again thisweek to make sure. He also wanted me to note that he has been working out at the gym 5 days per week. documented in this encounter Plan of Treatment Upcoming Encounters Date Type Department Care Team (Late st Contact Info) Description 12/14/2023 9:00 AM EDT Nurse Only Ancillary [facility] [place] [address] [place] [address] Nurse, Int Med [address] [place] [address] [address] 01/01/2024 9:30 AM EDT Anticoagulation Pharmacy, [facility] [place] [address] [place] [address] [address] Pharmacist1, [facility] [address] [place] [address] 03/04/2024 10:20 AM EDT Office Visit General Internal Medicine [facility] [address] [facility] [place] [address] Ventura Vaughn MD [address] [facility] [place] [address] 03/19/2024 9:00 AM EDT Nurse Only Ancillary [facility] [place] [address] [place] [address] Im, Nurse Annual Wellness [facility] [address] [facility] [place] [address] 03/21/2024 1:40 PM EDT Office Visit Nephrology, [facility] [address] [place] [address] Sandra Stack MD [address] [place] [address] [place] [address] 06/04/2024 9:00 AM EDT Laboratory Laboratory [facility] [address] [facility] [place] [phone] [facility] [address] [place] [address] 06/10/2024 11:00 AM EDT Office Visit Hematology/Oncology [facility] [place] [address] [facility] [place] [address] Ledy Jeter CRNP [address] [facility] [place] [address] Health Maintenance Due Date Last Done Comments Depression Screening 03/13/2024 03/13/2023, 01/29/20 15 GFR 06/02/2024 12/01/2023, 09/01, 08/10/2023, Additional history exists Albumin/Creatinine Ratio 08/10/2024 023, 08/12/2022, 12/13/2021, Additional history exists CKD PHOS USE SMARTSET 82562 08/10/20240 06/2023, 12/13/2021, 06/18/2020, Additional history exists CKD HGB USE SMARTSET 12255 11/30/202411/30, 12/01/2023, 10/03/2023, Additional history exists COLONOSCOPY-EVERY [...] filedocumented as of this encounter Care Teams Correctional Manager Relationship Specialty Start Date End Date Ventura Vaughn MD [address] [place] [address] PCP - General 06/14/10 documented as of this encounter
--- OUTSIDE RECORDS SUMMARY | 2023-12-19 08:20 | External Medical Summary | Summary of Care ---
Author Name Unknown Organization [facility] Address [address] [place] [address] Phone [phone] Care Team Providers Care Steel Inspector Name Role Phone Ventura Vaughn MD Primary Care Provider + Reason for Visit * Reason Onset Date Comments Blood Pressure Check 12/14/2023 Encounter Details Date Type Department Care Team (Late st Contact Info) Description 12/14/2023 9:00 AM EDT Nurse Only Ancillary [facility] [address] [facility] [place] [address] Nurse, Int Med [address] [place] [address] Blood Pressure Check Allergies Active Allergy Reactions Criticality Noted Date Comments Sulfamethoxazole-Trimethoprim Other (Please comment) 03/09/2023 AVI documented as of this encounter (statuses as of 12/14/2023) Medications Medication Sig Dispensed Refills Start Date [...] into both eyes every evening. 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 0 05/03/2005 Overview: ICD-10 update of inactive term Anticoagulation management encounter 05/03/2005 Acquired solitary kidney 09/05/2003 Overview: ICD-10 update of inactive term SLEEP APNEA NOS- CPAP Overview: nasal cpap 8 cm documented as of this encounter (statuses as of 12/14/2023) Resolved Problems Problem Noted Date Diagnosed Date [...] update of inactive term Hearing loss 04/23/2019 [place]' lung 02/07/2012 Phlebitis and thrombophlebit is of other deep vessels of lower extremities 03/22/2017 documented as of this encounter (statuses as of 12/14/2023) Immunizations Name Administration Dates Next Due COVID-19 mRNA, LNP-s, No Pre serve, 2-Dose Series ([employer]) 07/28/2021,12/08/2020,11/08/2020 COVID-19, LNP-s, No Preserve , Anderson-sucrose, Ages 12+ ([employer]) 03/01/2022 COVID-19, MRNA-LNP, 23-24, P F, 30 MCG/0.3 mL, 12 YRS AND ABOVE, IM ([facility]) 08/01/2023 Covid-19, Mrna, Lnp-s, Pf, B ivalent, 30 Mcg, IM, 12 yrs and above ([employer]) 07/28/2022 PPD 10/06/2008 Pneumococcal Conjugate Vacc, 13 [...] Sign Reading Time Taken Comments Blood Pressure 120/72 12/14/2023 9:05 AM EDT Pulse - - Temperature - - Respiratory Rate - - Oxygen Saturation - - Inhaled Oxygen Concentration - - Weight - - Height - - Body Mass Index - - documented in this encounter Progress Notes * Faye Silverman LPN - 12/14/2023 9:07 AM EDT Reggie Kessler presented for blood pressure check per provider orders. The blood pressure was obtained using the left arm in the sitting position using a adult cuff. The results were charted in Vital Signs. BP Readings from Last 3 Encounters: 12/14/23 120/72 12/08/23 130/68 12/08/23 135/79 BP 120/72 Patient denies headache, pressure in head, dizziness, lightheadedness, chest discomfort, focal neurological symptoms, change in vision, nose bleeds. Did patient take medications today? Yes Patient was instructed to follow-up as per their next scheduled appt documented in this encounter Plan of Treatment Upcoming Encounters Date Type Department Care Team (Late st Contact Info) Description 01/01/2024 9:30 AM EDT Anticoagulation Pharmacy, [facility] 200 [facility] [place] [address] Pharmacist1, [facility] [address] [facility] [place] [address] 03/04/2024 10:20 AM EDT Office Visit General Internal Medicine [facility] [address] [facility] [place] [address] Ventura Vaughn MD 200 [facility] [place] [address] 03/19/2024 9:00 AM EDT Nurse Only Ancillary [facility] [address] [facility] [place] [address] Im, Nurse Annual Wellness [facility] 200 [facility] [place] [address] 03/21/2024 1:40 PM EDT Office Visit Nephrology, [facility] [address] [address] Sandra Stack MD 200 [facility] [place] [address] 06/04/2024 9:00 AM EDT Laboratory Laboratory [facility] [place] [address] [place] [phone] Park [facility] [place] [address] [place] [address] 06/10/2024 11:00 AM EDT Office Visit Hematology/Oncology [facility] [address] [facility] [place] [phone] Ledy Jeter CRNP [address] [place], [place] [address], [place] [address] Scheduled Orders Name Type Priority Associated Diagnoses Orde r Schedule BLOOD PRESSURE Procedures Routine HTN, goal below 130/80 Ordered: 12/14/2023 Health Maintenance Due Date Last Done Comments Depression Screening 03/13/2024 03/13/2023, 01/29/20 15 GFR 06/02/2024 12/01/2023, 09/01, 08/10/2023, Additional history exists Albumin/Creatinine Ratio 08/10/2024 023, 08/12/2022, 12/13/2021, Additional history exists CKD PHOS USE SMARTSET 63532 08/10/202406/2023, 12/13/2021, 06/18/2020, Additional history exists CKD HGB USE SMARTSET 87197 11/30/202411/30, 12/01/2023, 10/03/2023, Additional history exists COLONOSCOPY-EVERY [...] as of this encounter Visit Diagnoses Diagnosis HTN, goal below 130/80- Primary Unspecified essential hypertension documented in this encounter Care Teams Steel Inspector Relationship Specialty Start Date End Date Ventura Vaughn MD 200 [place] [address] PCP - General 06/14/10 documented as of this encounter
--- OUTSIDE RECORDS SUMMARY | 2023-12-19 08:20 | External Medical Summary | Summary of Care ---
Author Name Unknown Organization [facility] Address [address] [place] [address] Phone [phone] Care Team Providers Care Paving Rammer Name Role Phone Ventura Vaughn MD Primary Care Provider + Reason for Visit * Reason Onset Date Comments Medication Question 12/07/2023 Encounter Details Date Type Department Care Team (Late st Contact Info) Description 12/07/2023 Telephone Nephrology, [facility] [address] [place] [address] Sandra Stack MD [address] [place] [address] Medication Question Allergies Active Allergy Reactions Criticality Noted Date Comments Sulfamethoxazole-Trimethoprim Other (Please comment) 03/09/2023 AVI documented as of this encounter (statuses as of 12/13/2023) Medications Medication Sig Dispensed Refills Start Date [...] into both eyes every evening. 0 Active [place]-3 Fatty Acids (FISH OIL) 1200 MG CAPS [...] as of this encounter (statuses as of 12/13/2023) Active Problems Problem Noted Date Diagnosed Date [...] transplant 01/08/2014 1st degree AV block 12/27/2012 USP current use of anticoagulant therapy 0 05/03/2005 Overview: ICD-10 update of inactive term Anticoagulation management encounter 05/03/2005 Acquired solitary kidney 09/05/2003 Overview: ICD-10 update of inactive term SLEEP APNEA NOS- CPAP Overview: nasal cpap 8 cm documented as of this encounter (statuses as of 12/13/2023) Resolved Problems Problem Noted Date Diagnosed Date [...] update of inactive term Hearing loss 04/23/2019 [place]' lung 02/07/2012 Phlebitis and thrombophlebit is of other deep vessels of lower extremities 03/22/2017 documented as of this encounter (statuses as of 12/13/2023) Immunizations Name Administration Dates Next Due COVID-19 mRNA, LNP-s, No Pre serve, 2-Dose Series (LIQUITY) 07/28/2021,12/08/2020,11/08/2020 COVID-19, LNP-s, No Preserve , Anderson-sucrose, Ages 12+ (LIQUITY) 03/01/2022 COVID-19, MRNA-LNP, 23-24, P F, 30 MCG/0.3 mL, 12 YRS AND ABOVE, IM ([facility]) 08/01/2023 Covid-19, Mrna, Lnp-s, Pf, B ivalent, 30 Mcg, IM, 12 yrs and above (LIQUITY) 07/28/2022 PPD 10/06/2008 Pneumococcal Conjugate Vacc, 13 [...] Telephone Encounter - Karyn Amaya RN - 12/13/2023 1:28 PM EDT Te with pt regarding recheck of blood pressure. He states he is feeling fine with medication changes. He is having back surgery on 12/18/23 and feels that he will be homebound at least,for a few weeks. He is not interested in having his bps checked at home and is seeing pcp tomorrow. He is sure he will be having labs during surgery. Will update us following procedure. * Telephone Encounter - Sandra Stack MD [...] 12/14/2023 9:00 AM EDT Nurse Only Ancillary [place] [address] [place] [address] [address] Nurse, Int Med [address] [place] [address] 01/01/2024 9:30 AM EDT Anticoagulation Pharmacy, [place] [address] [place] [address] Pharmacist1, [facility] [address] [place] [address] 03/04/2024 10:20 AM EDT Office Visit General Internal Medicine [place] [address] [place] [address] Ventura Vaughn MD [address] [place] [address] 03/19/2024 9:00 AM EDT Nurse Only Ancillary [facility] [place] 200 [facility] [place] [address] Im, Nurse Annual Wellness [facility] [address] [facility] [place] [address] 03/21/2024 1:40 PM EDT Office Visit Nephrology, [facility] 200 [facility] [place] [facility] [place] [address] Sandra Stack MD [address] [facility] [place] [address] 06/04/2024 9:00 AM EDT Laboratory Laboratory [facility] [place] [address] [facility] [place] [address] [place], Lab [address] [place] [address] 06/10/2024 11:00 AM EDT Office Visit Hematology/Oncology [facility] [place] [address] [facility] [place] [address] Ledy Jeter CRNP [address] [place] [address] Health Maintenance Due Date Last Done Comments Depression Screening 03/13/2024 03/13/2023, 01/29/20 15 GFR 06/02/2024 12/01/2023, 09/01, 08/10/2023, Additional history exists Albumin/Creatinine Ratio 08/10/2024 023, 08/12/2022, 12/13/2021, Additional history exists CKD PHOS USE SMARTSET 62592 08/10/2024 11/0 06/2023, 12/13/2021, 06/18/2020, Additional history exists CKD HGB USE SMARTSET 25624 11/30/202411/30, 12/01/2023, 10/03/2023, Additional history exists COLONOSCOPY-EVERY [...] filedocumented as of this encounter Care Teams Paving Rammer Relationship Specialty Start Date End Date Ventura Vaughn MD [address] [place] [address] PCP - General 06/14/10 documented as of this encounter
--- OUTSIDE RECORDS SUMMARY | 2023-12-19 08:21 | External Medical Summary | Summary of Care ---
Author Name Unknown Organization [facility] Address [address] [place] [address] Phone [phone] Care Team Providers Care Transit Authority Police Officer Name Role Phone Ventura Vaughn MD Primary Care Provider + Encounter Details Date Type Department Care Team (Late st Contact Info) Description 12/06/2023 Result Scan Unspecified Department <No scans attached> Allergies Active Allergy Reactions Criticality Noted Date Comments Sulfamethoxazole-Trimethoprim Other (Please comment) 03/09/2023 AVI documented as of this encounter (statuses as of 12/07/2023) Medications Medication Sig Dispensed Refills Start Date [...] into both eyes every evening. 0 Active [place]-3 Fatty Acids (FISH OIL) 1200 MG CAPS [...] DAILY 15 mL 3 11/29/2022 4 Active Atorvastatin Calcium 10 MG Oral Tablet [...] as of this encounter (statuses as of 12/07/2023) Active Problems Problem Noted Date Diagnosed Date [...] transplant 01/08/2014 1st degree AV block 12/27/2012 correction current use of anticoagulant therapy 0 05/03/2005 Overview: ICD-10 update of inactive term Anticoagulation management encounter 05/03/2005 Acquired solitary kidney 09/05/2003 Overview: ICD-10 update of inactive term SLEEP APNEA NOS- CPAP Overview: nasal cpap 8 cm documented as of this encounter (statuses as of 12/07/2023) Resolved Problems Problem Noted Date Diagnosed Date [...] update of inactive term Hearing loss 04/23/2019 [place]' lung 02/07/2012 Phlebitis and thrombophlebit is of other deep vessels of lower extremities 03/22/2017 documented as of this encounter (statuses as of 12/07/2023) Immunizations Name Administration Dates Next Due COVID-19 mRNA, LNP-s, No Pre serve, 2-Dose Series ([email or web address]) 07/28/2021,12/08/2020,11/08/2020 COVID-19, LNP-s, No Preserve , Anderson-sucrose, Ages 12+ (Pfizer) 03/01/2022 COVID-19, MRNA-LNP, 23-24, P F, 30 MCG/0.3 mL, 12 YRS AND ABOVE, IM ([facility] 08/01/2023 Covid-19, Mrna, Lnp-s, Pf, B ivalent, 30 Mcg, IM, 12 yrs and above ([email or web address]) 07/28/2022 PPD 10/06/2008 Pneumococcal Conjugate Vacc, 13 [...] on file documented as of this encounter Plan of Treatment Upcoming Encounters Date Type Department Care Team (Late st Contact Info) Description 12/08/2023 8:30 AM EST Office Visit Hematology/Oncology [facility] Flora [place] [address] [phone] Ledy Jeter CRNP [address] [place] [address] [place] [address] 12/08/2023 9:00 AM EST Nurse Only Ancillary Hanna Hines [place] [address] [place] [address] [address] Nurse, Int Med [address] [place] [address] 01/01/2024 9:30 AM EDT Anticoagulation Pharmacy, [place] Hines [place] [address] [place] [address] [address] Pharmacist1, [facility] [address] [place] [address] 03/04/2024 10:20 AM EDT Office Visit General Internal Medicine [facility] Fl[place] [address] [place] [address] Ventura Vaughn MD [address] [place] [address] 03/19/2024 9:00 AM EDT Nurse Only Ancillary [place] Hines [place] [address] [place] [address] Im, Nurse Annual Wellness [address] [place] [address] 07/16/2024 9:00 AM EDT Office Visit Nephrology, [facility] 200 [facility] [place] [address] Sandra Stack MD 200 [facility] [place] [address] Health Maintenance Due Date Last Done Comments Depression Screening 03/13/2024 03/13/2023, 01/29/20 15 GFR 06/02/2024 12/01/2023, 09/01, 08/10/2023, Additional history exists Albumin/Creatinine Ratio 08/10/2024 023, 08/12/2022, 12/13/2021, Additional history exists CKD PHOS USE SMARTSET 50294 08/10/202406/2023, 12/13/2021, 06/18/2020, Additional history exists CKD HGB USE SMARTSET 43912 11/30/202411/30, 12/01/2023, 10/03/2023, Additional history exists COLONOSCOPY-EVERY [...] Not on filedocumented as of this encounter Procedures Procedure Name Priority Date/Time Associated Diagnosis Comments EKG SCANNED RESULT 12/06/2023 documented in this encounter Results * EKG SCANNED RESULT (12/06/2023) 12/06/2023 No Physician Data Unknown EKG documented in this encounter Care Teams Transit Authority Police Officer Relationship Specialty Start Date End Date Vnetura Vaughn MD 200 [place] [address] PCP - General 06/14/10 documented as of this encounter
--- OUTSIDE RECORDS SUMMARY | 2023-12-19 08:21 | External Medical Summary | Summary of Care ---
Author Name Unknown Organization [facility] Address [address] [place] [address] Phone [phone] Care Team Providers Care Imaging Science Professor Name Role Phone Ventura Vaughn MD Primary Care Provider + Reason for Visit * Reason Onset Date Comments Insurance 12/06/2023 Encounter Details Date Type Department Care Team (Late st Contact Info) Description 12/06/2023 Telephone Pharmacy Call Center [phone] [place] [address] Pharmacist2, [facility] 200 [place] [address] Insurance Allergies Active Allergy Reactions Criticality Noted Date Comments Sulfamethoxazole-Trimethoprim Other (Please comment) 03/09/2023 AVI documented as of this encounter (statuses as of 12/06/2023) Medications Medication Sig Dispensed Refills Start Date [...] into both eyes every evening. 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 current use of anticoagulant therapy 0 05/03/2005 Overview: ICD-10 update of inactive term Anticoagulation management encounter 05/03/2005 Acquired solitary kidney 09/05/2003 Overview: ICD-10 update of inactive term SLEEP APNEA NOS- CPAP Overview: nasal cpap 8 cm documented as of this encounter (statuses as of 12/06/2023) Resolved Problems Problem Noted Date Diagnosed Date [...] update of inactive term Hearing loss 04/23/2019 [place]' lung 02/07/2012 Phlebitis and thrombophlebit is of other deep vessels of lower extremities 03/22/2017 documented as of this encounter (statuses as of 12/06/2023) Immunizations Name Administration Dates Next Due COVID-19 mRNA, LNP-s, No Pre serve, 2-Dose Series ([email or web address]) 07/28/2021,12/08/2020,11/08/2020 COVID-19, LNP-s, No Preserve , Anderson-sucrose, Ages 12+ ([email or web address]) 03/01/2022 COVID-19, MRNA-LNP, 23-24, P F, 30 MCG/0.3 mL, 12 YRS AND ABOVE, IM ([employer] 08/01/2023 Covid-19, Mrna, Lnp-s, Pf, B ivalent, 30 Mcg, IM, 12 yrs and above ([email or web address]) 07/28/2022 PPD 10/06/2008 Pneumococcal Conjugate Vacc, 13 [...] encounter Miscellaneous Notes * Telephone Encounter - Ralf Royal RPh - 12/06/2023 10:16 AM EST Images from the original note were not included. Confirmed with [facility] architectural representative that the [facility] pharmacy just reran the rx today and likely the patient was told information on the rx before it was rerun. Called and left voicemail for patient. Ralf Royal PharmD, BCACP, [facility] Clinical Pharmacist 12/06/2023, 10:18 AM * Telephone Encounter - Jorgito Hernandez PHARM Tech - 12/06/2023 9:47 AM EST Caller's name: Reggie Keven call back number(OFFICE NUMBER FOR ): [phone] Reason for call: Pt called again, stating he picked up RX , wanted MTM aware Thank you, Jorgito Hernandez [facility] Actuary Manager [facility] 12/06/2023,9:47 AM * Telephone Encounter - Dawn Lawrence PHARM Tech - 12/06/2023 9:23 AM EST Caller's name: Reggie Baca call back number(OFFICE NUMBER FOR ): [phone] Reason for call: Insurance Pt inquiring when Peyman Sanchez Spoke to the [employer] company regarding the lovenox prescription. Has the copay of the lovenox been decreased? [facility] is still trying to charge him $95.00 this morning, as his copay. Pls advise pt. Dawn Rodney Tech [facility] ([facility] (Formerly Telepharmacy) 12/06/2023, 9:23 AM documented in this encounter Plan of Treatment Upcoming Encounters Date Type Department Care Team (Late st Contact Info) Description 12/08/2023 8:30 AM EST Office Visit Hematology/Oncology [facility] [place] [address] [place] [phone] Ledy Jeter CRNP [address] [place] [address] [place] [address] 12/08/2023 9:00 AM EST Nurse Only Ancillary Hanna Hines [place] [address] [place] [address] Nurse, Int Med [address] [address] 01/01/2024 9:30 AM EDT Anticoagulation Pharmacy, [facility] [place] 200 [facility] [place] [address] Pharmacist1, [facility] [address] [place] [address] 03/04/2024 10:20 AM EDT Office Visit General Internal Medicine [facility] 200 [facility] [place] [address] Ventura Vaughn MD [address] [place] [address] Dr [facility] [place] [address] 03/19/2024 9:00 AM EDT Nurse Only Ancillary [facility] [address] [place] [address] Im, Nurse Annual Wellness [address] [place] [address] 07/16/2024 9:00 AM EDT Office Visit Nephrology, [address] [place] [address] Sandra Stack MD [address] [place] [address] [place] [address] Health Maintenance Due Date Last Done Comments Depression Screening 03/13/2024 03/13/2023, 01/29/20 15 GFR 06/02/2024 12/01/2023, 09/01, 08/10/2023, Additional history exists Albumin/Creatinine Ratio 08/10/2024 023, 08/12/2022, 12/13/2021, Additional history exists CKD PHOS USE SMARTSET 71691 08/10/2024 11/0 06/2023, 12/13/2021, 06/18/2020, Additional history exists CKD HGB USE SMARTSET 83617 11/30/202411/30, 12/01/2023, 10/03/2023, Additional history exists COLONOSCOPY-EVERY 5 YRS AGES 18-100 04/19/2027 04/19/2022, 04/19/2022, 03/28/2017, Additional history exists DTaP,Tdap,and Td Vaccines (3 - Td or Tdap) 07/31/2030 07/31/2020, 06/11/2009 Pneumococcal Vaccine: 65+ Years Completed 01/28/2015, 05/30/2007, 09/20/1995 Zoster Vaccines Completed 09/30/2020, 1010/2019, 08/02/2015 Influenza Vaccine (FLU shot) Completed , [...] Diagnoses Diagnosis History of DVT (deep vein thrombosis)- Primary Personal history of venous thrombosis and embolism documented in this encounter Care Teams Imaging Science Professor Relationship Specialty Start Date End Date Ventura Vaughn MD [address] [place] [address] PCP - General 06/14/10 documented as of this encounter
--- OUTSIDE RECORDS SUMMARY | 2023-12-19 08:21 | External Medical Summary | Summary of Care ---
Author Name Unknown Organization [facility] Address [address] [place] [address] Phone [phone] Care Team Providers Care Exterior Work Helper Name Role Phone Ventura Vaughn MD Primary Care Provider + Reason for Visit * Reason Onset Date Comments Blood Pressure Check 12/08/2023 Encounter Details Date Type Department Care Team (Late st Contact Info) Description 12/08/2023 9:00 AM EST Nurse Only Ancillary [facility] [address] [place] [address] Nurse, Int Med 200 [place] [address] Blood Pressure Check Allergies Active Allergy Reactions [...] into both eyes every evening. 0 Active [place]-3 Fatty Acids (FISH OIL) 1200 MG CAPS [...] transplant 01/08/2014 1st degree AV block 12/27/2012 snf current use of anticoagulant therapy 0 05/03/2005 [...] update of inactive term Hearing loss 04/23/2019 [place]' lung 02/07/2012 Phlebitis and thrombophlebit is of other deep vessels of lower extremities 03/22/2017 documented as of this encounter (statuses as of 12/08/2023) Immunizations Name Administration Dates Next Due COVID-19 mRNA, LNP-s, No Pre serve, 2-Dose Series ([employer]ym) 07/28/2021,12/08/2020,11/08/2020 COVID-19, LNP-s, No Preserve , Anderson-sucrose, Ages 12+ (Unidym) 03/01/2022 COVID-19, MRNA-LNP, 23-24, P F, 30 MCG/0.3 mL, 12 YRS AND ABOVE, IM ([place] [facility]) 08/01/2023 Covid-19, Mrna, Lnp-s, Pf, B ivalent, 30 Mcg, IM, 12 yrs and above ([employer]) 07/28/2022 PPD 10/06/2008 Pneumococcal Conjugate Vacc, 13 [...] Sign Reading Time Taken Comments Blood Pressure 130/68 12/08/2023 9:01 AM EST Pulse - - Temperature - - Respiratory Rate - - Oxygen Saturation - - Inhaled Oxygen Concentration - - Weight - - Height - - Body Mass Index - - documented in this encounter Progress Notes * Antonia Goff LPN - 12/08/2023 9:06 AM EST Reggie Kessler presented for blood [...] Description 01/01/2024 9:30 AM EDT Anticoagulation Pharmacy, [facility] 200 [facility] [place] [address] Pharmacist1, [facility] [address] [facility] [place] [address] 03/04/2024 10:20 AM EDT Office Visit General Internal Medicine [facility] [place] [address] Ventura Vaughn MD 200 [facility] [place] [address] 03/19/2024 9:00 AM EDT Nurse Only Ancillary [facility] 200 [facility] [place] [address] Im, Nurse Annual Wellness [facility] 200 [facility] [place] [address] 03/21/2024 1:40 PM EDT Office Visit Nephrology, [facility] [address] [address] Sandra Stack MD 200 [facility] [place] [address] 06/04/2024 9:00 AM EDT Laboratory Laboratory [facility] [address] [phone] [facility] [place] [address] [address] 06/10/2024 11:00 AM EDT Office Visit Hematology/Oncology [facility] [address] [phone] Ledy Jeter CRNP [address] [place], [place] [address] [address] Health Maintenance Due Date Last Done Comments Depression Screening 03/13/2024 03/13/2023, 01/29/20 15 GFR 06/02/2024 12/01/2023, 09/01, 08/10/2023, Additional history exists Albumin/Creatinine Ratio 08/10/2024 023, 08/12/2022, 12/13/2021, Additional history exists CKD PHOS USE SMARTSET 08603 08/10/202406/2023, 12/13/2021, 06/18/2020, Additional history exists CKD HGB USE SMARTSET 27152 11/30/202411/30, 12/01/2023, 10/03/2023, Additional history exists COLONOSCOPY-EVERY [...] Procedure Name Priority Date/Time Associated Diagnosis Comments BLOOD PRESSURE Routine 12/08/2023 HTN, goal below 130/80 documented in this encounter Results * BLOOD PRESSURE (12/08/2023) BP, SYSTOLIC (MM[facility]) 130 BP, DIASTOLIC (MMHG) 68 Sherrie Araujo MD MEDICAL SERVICES documented in this encounter Visit Diagnoses Diagnosis HTN, goal below 130/80- Primary Unspecified essential hypertension documented in this encounter Care Teams Exterior Work Helper Relationship Specialty Start Date End Date Ventura Vaughn MD 200 [facility] [place] [address] PCP - General 06/14/10 documented as of this encounter
--- OUTSIDE RECORDS SUMMARY | 2023-12-19 08:21 | External Medical Summary | Summary of Care ---
Author Name Unknown Organization [facility] Address [address] [place] [address] Phone [phone] Care Team Providers Care Commercial Light Fixture Assembler Name Role Phone Ventura Vaughn MD Primary Care Provider + Reason for Visit * Reason Onset Date Comments Medication Question 12/07/2023 Encounter Details Date Type Department Care Team (Late st Contact Info) Description 12/07/2023 Telephone Nephrology, [facility] 200 [place] [address] Sandra Satck MD 200 [place] [address] Medication Question Allergies Active Allergy Reactions Criticality [...] into both eyes every evening. 0 Active [place]-3 Fatty Acids (FISH OIL) 1200 MG CAPS [...] transplant 01/08/2014 1st degree AV block 12/27/2012 retirement current use of anticoagulant therapy 0 05/03/2005 [...] update of inactive term Hearing loss 04/23/2019 [place]' lung 02/07/2012 Phlebitis and thrombophlebit is of other deep vessels of lower extremities 03/22/2017 documented as of this encounter (statuses as of 12/07/2023) Immunizations Name Administration Dates Next Due COVID-19 mRNA, LNP-s, No Pre serve, 2-Dose Series ([email or web address]) 07/28/2021,12/08/2020,11/08/2020 COVID-19, LNP-s, No Preserve , Anderson-sucrose, Ages 12+ ([email or web address]) 03/01/2022 COVID-19, MRNA-LNP, 23-24, P F, 30 MCG/0.3 mL, 12 YRS AND ABOVE, IM ([facility]) 08/01/2023 Covid-19, Mrna, Lnp-s, Pf, B ivalent, 30 Mcg, IM, 12 yrs and above ([email or web address]) 07/28/2022 PPD 10/06/2008 Pneumococcal Conjugate Vacc, 13 [...] encounter Miscellaneous Notes * Telephone Encounter - Daisy Tang OSA [...] 12/08/2023 8:30 AM EST Office Visit Hematology/Oncology [facility] [address] [facility] [place] [phone] Ledy Jeter CRNP [address] [facility] [place] [address] 12/08/2023 9:00 AM EST Nurse Only Ancillary [place] [facility] 200 [facility] [place] [address] Nurse, Int Med [address] [facility] [place] [address] 01/01/2024 9:30 AM EDT Anticoagulation Pharmacy, [facility] [place] [address] [place] [address] Pharmacist1, [facility] 200 [facility] [place] [address] 03/04/2024 10:20 AM EDT Office Visit General Internal Medicine [facility] 200 [facility] [place] [address] Ventura Vaughn MD [address] [facility] [place] [address] 03/19/2024 9:00 AM EDT Nurse Only [facility]illary [facility] [address] [facility] [place] [address] Im, Nurse Annual Wellness [facility] [address] [place] [address] 03/21/2024 1:40 PM EDT Office Visit Nephrology, [facility] [address] [place] [address] Sandra Stack MD [address] [facility] [place] [address] Health Maintenance Due Date Last Done Comments Depression Screening 03/13/2024 03/13/2023, 01/29/20 15 GFR 06/02/2024 12/01/2023, 09/01, 08/10/2023, Additional history exists Albumin/Creatinine Ratio 08/10/20242 023, 08/12/2022, 12/13/2021, Additional history exists CKD PHOS USE SMARTSET 01614 08/10/[address]240 06/2023, 12/13/2021, 06/18/2020, Additional history exists CKD HGB USE SMARTSET 49719 11/30/202411/30, 12/01/2023, 10/03/2023, Additional history exists COLONOSCOPY-EVERY [...] filedocumented as of this encounter Care Teams Commercial Light Fixture Assembler Relationship Specialty Start Date End Date Ventura Vaughn MD [address] [place] [address] PCP - General 06/14/10 documented as of this encounter
--- OUTSIDE RECORDS SUMMARY | 2023-12-19 08:21 | External Medical Summary | Summary of Care ---
Author Name Unknown Organization [facility] Address [address] [place] [address] Phone [phone] Care Team Providers Care Manager Revenue Name Role Phone Ventura Vaughn MD Primary Care Provider + Reason for Visit * Reason Comments Follow Up 3m Encounter Details Date Type Department Care Team (Late st Contact Info) Description 12/08/2023 8:30 AM EST Office Visit Hematology/Oncology [facility] [address] [place] [address] Ledy Jeter CRNP [address] [place] [address] Monocytosis* Allergies Active Allergy Reactions Criticality Noted Date [...] into both eyes every evening. 0 Active [place]-3 Fatty Acids (FISH OIL) 1200 MG CAPS [...] update of inactive term Hearing loss 04/23/2019 [place]' lung 02/07/2012 Phlebitis and thrombophlebit is of other deep vessels of lower extremities 03/22/2017 documented as of this encounter (statuses as of 12/08/2023) Immunizations Name Administration Dates Next Due COVID-19 mRNA, LNP-s, No Pre serve, 2-Dose Series ([employer]) 07/28/2021,12/08/2020,11/08/2020 COVID-19, LNP-s, No Preserve , Anderson-sucrose, Ages 12+ ([employer]) 03/01/2022 COVID-19, MRNA-LNP, 23-24, P F, 30 MCG/0.3 mL, 12 YRS AND ABOVE, IM ([employer]ir[employer]) 08/01/2023 Covid-19, Mrna, Lnp-s, Pf, B ivalent, 30 Mcg, IM, 12 yrs and above ([employer]) 07/28/2022 PPD 10/06/2008 Pneumococcal Conjugate Vacc, 13 [...] Date Smoking Tobacco: Never Smokeless Tobacco: Never Tobacco Cessation:Counseling Given: Not Answered Alcohol Use Standard Drinks/Week Comments No 0 [...] Sign Reading Time Taken Comments Blood Pressure 135/79 12/08/2023 8:28 AM EST Pulse 76 12/08/2023 8:28 AM EST Temperature 36.8 C (98.3 F) 12/08/2023 8:28 AM ES T Respiratory Rate 16 12/08/2023 8:28 AM EST Oxygen Saturation 96% 12/08/2023 8:28 AM EST Inhaled Oxygen Concentration - - Weight 98.4 kg (216 lb 14.4 oz) 12/08/2023 8:28 AM EST Height 174 cm (5' 8.5") 12/08/2023 8:28 AM EST Body Mass Index 32.5 12/08/2023 8:28 AM EST documented in this encounter Progress Notes * Ledy Jeter CRNP - 12/08/2023 8:30 AM EST Hematology/Oncology Outpatient Clinic note [facility] [address] [place] [address] Name: Reggie Kessler Date: 12/07/2023 CHIEF COMPLAINT: Reggie Kessler is a 83 year old male patient of Dr. Rodgers Noemi here today for f/u visit today. From Patient chart confirmed with patient. HEMATOLOGY/ONCOLOGY DIAGNOSIS: Monocytosis CURRENT TREATMENT: Observation HISTORY: Patient with history of multiple medical problems including arthritis, gout, back pain, hypertension, obstructive sleep apnea on CPAP, history of DVT involving the right lower extremity and currentlyon Coumadin was referred with the above diagnosis. Patient donated one of his kidney to . Overall clinically he is stable without any new symptoms. He denies any fever, night sweats, weightloss, headache, dizziness, blurred vision, chest pain, shortness breath palpitation abdominal pain or distention bleeding, bruising, nausea, vomiting, fever, night sweats, hematuria, hematochezia, weight loss. Last CBC was done on 11/11/2022 which shows WBC count of 9.34, hemoglobin 13.6 and platelet count 146. MCV and RDW were normal. Differential was significant for monocyte count of 23% with absolute monocyte count of 2.15. Ferritin, iron screen and vitamin B12 level were normal. Stool was negative blood. Looking at the CBC result in the [facility], the earliest available with monocytosis from 03/17/2017 at that time his monocyte count were 13.8%. Monocyte counts were 25% with absolute monocyte count of1.97 on July 17, 2020. Hemoglobin is stable since April 2019 with normal WBC and platelet counts.There were no premature cells in the differential. Patient denies smoking or drinking. Family history significant for sister was diagnosed of ovarian cancer. HISTORY OF PRESENT ILLNESS: Reggie Kessler is a 83 year old male with a history as outlined above. Currently here for f/u visit today. Patient is having lower back surgery later this month. Denies drenching night sweats or unexplained weight loss. Denies abdominal pain or bloating. Past Medical History: Diagnosis Date Benign neoplasm of colon 02/19/2014 adenomatous polyps, repeat 3 yrs Conductive hearing loss Hearing loss, conductive Dermatitis 05/13/2002 Deviated nasal septum 09/01/2009 Elevated uric acid in blood 12/05/[address], [address] [place]' lung (HCC) Hearing loss Phlebitis and thrombophlebitis of other deep vessels of lower extremities Post corneal transplant 01/08/2014 rash--possible from chemical exposure Rash Nec Sleep apnea Venous thrombosis 05/03/2005 Past Surgical History: Procedure Laterality Date COLONOSCOPY, DIAGNOSTIC (RECTUM) 02/19/2014 adenomatous polyps, repeat 3 yrs/done @ [facility] COLONOSCOPY, DIAGNOSTIC (RECTUM) 03/28/2017 normal, repeat 5 yrs/COLONOSCOPY FLEXIBLE PROXIMAL DIAGNOSTIC performed by Andry Evans MD at ENDOSCOPY [facility] COLONOSCOPY, DIAGNOSTIC (RECTUM) 04/19/2022 diverticulosis in sigmoid, 2- 2 to 3 mm in sigmoid & ascending, otherwise normal / biopsies benign adenomatous polyps / COLONOSCOPY FLEXIBLE PROXIMAL DIAGNOSTIC performed by Andry Evans MD at ENDOSCOPY [facility] INFORMATION 1996 kidney donor - left INJECT DX/THER SUBSTANCE INTERLAMINAR LUMBAR/SACRAL W IMAGE GUIDE 11/03/2022 INJECTION SPINE LUMBAR OR SACRAL performed by Juancarlos Zhou DO at OR [facility] INJECT DX/THER SUBSTANCE INTERLAMINAR LUMBAR/SACRAL W IMAGE GUIDE 08/03/2023 INJECTION SPINE LUMBAR OR SACRAL performed by Juancarlos Zhou DO at OR [facility] L-/S-SPINE PARAVERTEBRAL FACET INJ,1 LEVEL 02/20/2023 L-/S-SPINE PARAVERTEBRAL FACET INJ, 1 LEVEL performed by Juancarlos Zhou DO at OR [facility] L-/S-SPINE PARAVERTEBRAL FACET INJ,1 LEVEL 03/17/2023 L-/S-SPINE PARAVERTEBRAL FACET INJ, 1 LEVEL performed by Juancarlos Zhou DO at OR [facility] L-/S-SPINE PARAVERTEBRL FACET INJ,2 LEVELS 02/20/2023 L-/S-SPINE PARAVERTEBRAL FACET INJ, 2 LEVELS performed by Juancarlos Zhou DO at OR [facility] L-/S-SPINE PARAVERTEBRL FACET INJ,2 LEVELS 03/17/2023 L-/S-SPINE PARAVERTEBRAL FACET INJ, 2 LEVELS performed by Juancarlos Zhou DO at OR [facility] LAPAROSCOPY; CHOLECYSTECTOMY 2000 Cholecystectomy, Laproscopic OTHER 2000, 2002 Cornea transplants REPAIR INITIAL INCISIONAL OR VENTRAL HERNIA; REDUCIBLE 07/07/2008 Mesh [place] two incisional hernias & [place] [facility] 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 Lives with Heena Ontiveros, significant other Social Determinants of Health Financial Resource Strain: Not on file Food Insecurity: No Food Insecurity (03/13/2023) Hunger Vital Sign Worried About Running Out of Food in the Last Year: Never true Ran Out of Food in the Last Year: Never true Transportation Needs: Not on file Physical Activity: Not on file Stress: Not on file Social Connections: Not on file Intimate Partner Violence: Not on file Housing Stability: Not on file Review of patient's allergies indicates: Allergen Reactions Bactrim [Sulfamethoxazole-Trimethoprim] Other (Please comment) AVI Current Outpatient Medications Medication Sig Dispense Refill COLACE 50 MG PO CAPS Take 1 Capsule by mouth in the morning. TYLENOL EXTRA STRENGTH 500 MG PO TABS two tabs by mouth bid for fever 100 5 METAMUCIL 30.9 % PO POWD One tablespoon twice a day PREDNISOLONE ACETATE 1 % OP SUSP Instill 1 Drop into both eyes every evening. [place]-3 Fatty Acids (FISH OIL) 1200 MG CAPS Take by mouth 1 Capsule daily . Vitamin D3 25 MCG (1000 UT) Oral Tablet (Vitamin D3) Take 1 Tablet by mouth every other day. CPAP every night at bedtime . Allopurinol 100 MG Oral Tablet (Zyloprim) TAKE ONE TABLET BY MOUTH EVERY MORNING AND TAKE ONE TABLET BY MOUTH EVERY DAY BEFORE BEDTIME 180 Tablet 3 prednisoLONE Acetate 1 % Ophthalmic Suspension (Pred Forte) INSTILL ONE DROP INTO BOTH EYES ONCE DAILY 15 mL 3 amLODIPine Besylate 2.5 MG Oral Tablet (Norvasc) TAKE ONE TABLET BY MOUTH EVERY DAY 90 Tablet 3 Atorvastatin Calcium 10 MG Oral Tablet (Lipitor) TAKE ONE TABLET BY MOUTH EVERY DAY 90 Tablet 1 Gabapentin 100 MG Oral Capsule (Neurontin) Take 2 Capsules by mouth in the morning and 2 Capsules before bedtime. 360 Capsule 1 Omeprazole 20 MG Oral Capsule Delayed Release (PriLOSEC) TAKE ONE CAPSULE BY MOUTH ONCE DAILY ONE HOUR BEFORE THE FIRST MEAL OF THE DAY 90 Capsule 1 B-12 1000 MCG Oral Tablet Take by mouth. Warfarin Sodium 5 MG Oral Tablet (Coumadin) Take 1 Tablet by mouth in the morning. Or as directed by anticoagulation clinic. 90 Tablet 1 Enoxaparin Sodium 80 MG/0.8ML Injection Solution Prefilled Syringe (LovenoPollitoIngles) Inject 80 mg under theskin in the morning and 80 mg before bedtime. Take as directed by anticoag clinic for upcoming procedure. (10 syringes ordered). 8 mL 0 Losartan Potassium 50 MG Oral Tablet (Cozaar) Take 1 Tablet by mouth in the morning. 90 Tablet 3 amLODIPine Besylate 2.5 MG Oral Tablet (Norvasc) Take 1 Tablet by mouth in the morning. HOLD FOR NOW. No current facility-administered medications for this visit. REVIEW OF SYSTEMS: See HPI - otherwise negative OBJECTIVE: Filed Vitals: 12/08/23 0828 BP: 135/79 Pulse: 76 Resp: 16 Temp: 36.8 C (98.3 F) TempSrc: Tympanic SpO2: 96% Weight: 98.4 kg (216 lb 14.4 oz) Height: 1.74 m (5' 8.5") Wt Readings from Last 5 Encounters: 12/08/23 98.4 kg (216 lb 14.4 oz) 12/01/23 97.3 kg (214 lb 9.6 oz) 09/11/23 96.2 kg (212 lb 1.6 oz) 09/08/23 95.2 kg (209 lb 14.4 oz) 08/14/23 95.3 kg (210 lb) PHYSICAL EXAM: General Appearance: Normal - Healthy appearing patient in no acute distress Lymph Nodes: Normal - No palpable lymph nodes in the neck or supraclavicular areas Lungs/Thorax: Normal - Clear to auscultation Heart: Normal - Regular rate and rhythm, normal S1, S2, no appreciable murmurs Extremities: +nonpitting BLE edema Abdomen: Normal - Soft, nontender, bowel sounds present, no appreciable hepatosplenomegaly, no palpable masses Neurologic: Normal - Grossly intact LABS: Results for orders placed or performed in visit on 12/01/23 PT INR Result Value Ref Range Prothrombin Time 32.0 (H) 11.6 - 15.2 seconds INR 3.1 (H) 0.8 - 1.2 COMPREHENSIVE METABOLIC PANEL Result Value Ref Range BUN 28 (H) 6 - 20 mg/dL Creatinine 1.5 (H) 0.6 - 1.2 mg/dL Estimated Glomerular Filtration Rate 45 (L) >=60 mL/min Sodium 138 135 - 146 mmol/L Potassium 4.5 3.5 - 5.1 mmol/L Chloride 103 98 - 107 mmol/L CO2 26 22 - 32 mmol/L Anion Gap 9 7 - 15 mmol/L Glucose 102 70 - 120 mg/dL Albumin 4.4 3.8 - 5.0 g/dL AST 18 10 - 50 U/L Alkaline Phosphatase 58 35 - 130 U/L Bilirubin, Total 0.6 <=1.2 mg/dL Calcium 9.5 8.4 - 10.2 mg/dL Protein 7.4 6.0 - 8.3 g/dL ALT 8 (L) 10 - 50 U/L CBC Result Value Ref Range WBC 7.10 4.00 - 10.80 K/uL RBC 4.66 4.50 - 5.25 M/uL HGB 13.8 (L) 14.0 - 16.8 g/dL HCT 41.5 40.0 - 48.4 % MCV 89.1 82.0 - 99.5 fL MCH 29.6 27.0 - 34.0 pg MCHC 33.3 32.0 - 36.0 g/dL RDW 14.9 11.5 - 15.5 % PLT 145 140 - 400 K/uL MPV 10.0 6.6 - 11.1 fL DIFFERENTIAL, TECHNOLOGIST REVIEW Result Value Ref Range WBC 7.10 4.00 - 10.80 K/uL Neutrophils % 36.0 (L) 40.0 - 75.0 % Lymphocytes % 39.0 18.0 - 42.0 % Monocytes % 24.0 (H) 1.0 - 11.0 % Eosinophils % 1.0 0.0 - 6.0 % Absolute Neutrophils 2.56 1.80 - 7.70 K/uL Absolute Lymphocytes 2.77 1.00 - 4.80 K/uL Absolute Monocytes 1.70 (H) 0.00 - 1.10 K/uL Absolute Eosinophils 0.07 0.00 - 0.70 K/uL nRBCs Reactive Lymphocytes Present (A) None Seen *Note: Due to a large number of results and/or encounters for the requested time period, some results have not been displayed. A complete set of results can be found in Results Review. IMPRESSION/PLAN: Monocytosis Patient feeling clinically well today and physical exam is unremarkable Denies b symptoms, no splenomegaly noted on exam Lab results reviewed: WBC 7.10, AMC 1.70 No significant cytopenias noted Likely reactive As no concerning symptoms or cytopenias present and monocytosis stable would continue to recommend lab monitoring at this time. RTC in six months with provider with cbc/diff and cmp LETI Wisdom documented in this encounter Nursing Notes * Yolanda Woodward LPN - 12/08/2023 8:29 AM EST Patient identifed by name and birthdate Do you have any concerns about pain management for today's visit? No Living Will or Advance Directive for Health Care as noted on the problem list. [facility] is a way you can talk to your provider on line through e-mail. Would you like to sign up? I can activate it for you? IN PROCESS Filed Vitals: 12/08/23 0828 BP: 135/79 Pulse: 76 Resp: 16 Temp: 36.8 C (98.3 F) TempSrc: Tympanic SpO2: 96% Weight: 98.4 kg (216 lb 14.4 oz) Height: 1.74 m (5' 8.5") Patient was instructed to not get up on the exam table/exam chair until directed and assisted by their provider; patient is to remain seated in the chair/ wheelchair/ exam table/ exam chair for fall prevention and safety reasons. Patient is aware to have assistance to step down off exam table/exam chair with personnel. Patient voiced full comprehension of instructions. documented in this encounter Plan of Treatment Upcoming Encounters Date Type Department Care Team (Late st Contact Info) Description 01/01/2024 9:30 AM EDT Anticoagulation Pharmacy, [facility] [place] [address] [address] Pharmacist1, [facility] [address] [place] [address] 03/04/2024 10:20 AM EDT Office [facility] [address] [place] [address] [place]ura Vaughn MD [address] [facility] [place] [address] 03/19/2024 9:00 AM EDT Nurse [facility] [address] [place] [address] Im, Nurse Annual Wellness [facility] [address] [place] [address] 03/21/2024 1:40 PM EDT Office Visit Nephrology, [facility] [address] [place] [address] [address] Sandra Stack MD [address] [place] [address] 06/04/2024 9:00 AM EDT Laboratory Laboratory [facility] [place] H[place] [address] [place] [phone] [facility] [place] [address] [place] [address] 06/10/2024 11:00 AM EDT [facility] [place] [address] [place] [address] Ledy Jeter CRNP [address] [place] [address] Scheduled Orders Name Type Priority Associated Diagnoses Orde r Schedule CBC WITH WBC DIFFERENTIAL Lab STAT Monocytosis Expected: 06/10/2024 (Approximate), Expires: 12/06/2024 COMPREHENSIVE METABOLIC PANEL Lab STAT Monocytosis Expected: 06/10/2024 (Approximate), Expires: 12/06/2024 Health Maintenance Due Date Last Done Comments Depression Screening 03/13/2024 03/13/2023, 01/29/20 15 GFR 06/02/2024 12/01/2023, 09/01, 08/10/2023, Additional history exists Albumin/Creatinine Ratio 08/10/2024 023, 08/12/2022, 12/13/2021, Additional history exists CKD PHOS USE SMARTSET 74522 08/10/202406/2023, 12/13/2021, 06/18/2020, Additional history exists CKD HGB USE SMARTSET 93942 11/30/202411/30, 12/01/2023, 10/03/2023, Additional history exists COLONOSCOPY-EVERY [...] as of this encounter Visit Diagnoses Diagnosis Monocytosis- Primary Monocytosis (symptomatic) documented in this encounter Care Teams Manager Revenue Relationship Specialty Start Date End Date Ventura Vaughn MD [address] [facility] [place] [address] PCP - General 06/14/10 documented as of this encounter
--- OUTSIDE RECORDS SUMMARY | 2023-12-19 08:21 | External Medical Summary | Summary of Care ---
Author Name Unknown Organization [facility] Address [address] [place] [address] Phone [phone] Care Team Providers Care Bushel Worker Name Role Phone Ventura Vaughn MD Primary Care Provider + Reason for Visit * Reason Onset Date Comments Medication Question 12/07/2023 Encounter Details Date Type Department Care Team (Late st Contact Info) Description 12/07/2023 Telephone Nephrology, [facility] [address] [place] [address] Sandra Stack MD [address] [place] [address] Medication Question Allergies Active Allergy Reactions Criticality [...] into both eyes every evening. 0 Active [place]-3 Fatty Acids (FISH OIL) 1200 MG CAPS [...] transplant 01/08/2014 1st degree AV block 12/27/2012 nursing home current use of anticoagulant therapy 0 [...] update of inactive term Hearing loss 04/23/2019 [place]' lung 02/07/2012 Phlebitis and thrombophlebit is of other deep vessels of lower extremities 03/22/2017 documented as of this encounter (statuses as of 12/07/2023) Immunizations Name Administration Dates Next Due COVID-19 mRNA, LNP-s, No Pre serve, 2-Dose Series ([employer]) 07/28/2021,12/08/2020,11/08/2020 COVID-19, LNP-s, No Preserve , Anderson-sucrose, Ages 12+ ([employer]) 03/01/2022 COVID-19, MRNA-LNP, 23-24, P F, 30 MCG/0.3 mL, 12 YRS AND ABOVE, IM ([facility]) 08/01/2023 Covid-19, Mrna, Lnp-s, Pf, B ivalent, 30 Mcg, IM, 12 yrs and above ([employer]) 07/28/2022 PPD 10/06/2008 Pneumococcal Conjugate Vacc, 13 [...] 12/08/2023 8:30 AM EST Office Visit Hematology/Oncology [facility] [place] [address] [phone] Ledy [facility]eter [facility] [address] [facility] [place] [address] 12/08/2023 9:00 AM EST Nurse Only Ancillary [place] [facility] [address] [facility] [place] [address] Nurse, Int Med [address] [place] [address] 01/01/2024 9:30 AM EDT Anticoagulation Pharmacy, [facility] [place] [address] [address] [address] Pharmacist1, [facility] [address] [facility] [place] [address] 03/04/2024 10:20 AM EDT Office Visit General Internal Medicine [facility] [place] [address] [facility] [place] [address] Ventura Vaughn MD [address] [place] [address] 03/19/2024 9:00 AM EDT Nurse Only Ancillary [facility] [place] [address] [address] Im, Nurse Annual Wellness [facility] [address] [place] [address] 03/21/2024 1:40 PM EDT Office Visit Nephrology, [facility] [address] [place] [address] Sandra Stack MD [address] [place] [address] Health Maintenance Due Date Last Done Comments Depression Screening 03/13/2024 03/13/2023, 01/29/20 15 GFR 06/02/2024 12/01/2023, 09/01, 08/10/2023, Additional history exists Albumin/Creatinine Ratio 08/10/20242 023, 08/12/2022, 12/13/2021, Additional history exists CKD PHOS USE SMARTSET 94667 08/10/20240 06/2023, 12/13/2021, 06/18/2020, Additional history exists CKD HGB USE SMARTSET 73755 11/30/202411/30, 12/01/2023, 10/03/2023, Additional history exists COLONOSCOPY-EVERY [...] filedocumented as of this encounter Care Teams Bushel Worker Relationship Specialty Start Date End Date Ventura Vaughn MD [address] [place] [address] PCP - General 06/14/10 documented as of this encounter
[2023-12-19] MEDS ORDERED: ePHEDrine sulfate 50 MG/ML AMP IV PRN (08:32)
[2023-12-19] MEDS ORDERED: ATROPINE SULFATE 0.1 MG/ML 10ML SYR IV PRN (08:32)
[2023-12-19] MEDS ORDERED: ONDANSETRON INJ 2 MG/ML 2 ML VIAL IV PRN ×2 (08:32→13:59)
[2023-12-19] MEDS: LR 15ML/HR IV SCH ×2 (08:47→08:49)
[2023-12-19] MEDS: ACETAMINOPHEN 500 MG TAB PO SCH ×2 (08:48→08:50)
[2023-12-19] MEDS: ceFAZolin 2000MG 2,000 MG/15 ML SYR IV SCH ×3 (08:49→17:31)
[2023-12-19] MEDS: GABAPENTIN 300 MG CAP PO SCH ×2 (08:49→08:50)
[2023-12-19] MEDS: CeleBREX 200 MG CAP PO SCH ×2 (08:49→08:50)
[2023-12-19] MEDS: LR 60ML/HR IV SCH ×2 (08:49→08:50)
--- NOTE | 2023-12-19 08:53 | History & Physical Bridge Note ---
Date of Service December 19, 2023 History & Physical Bridge Note I have examined the patient, reviewed the History & Physical and in the interval since the performance of the History & Physical I have noted the following changes of clinical significance: no changes noted
--- NOTE | 2023-12-19 08:55 | History & Physical Report ---
Date of Service December 19, 2023 Assessment & Plan (1) Neurogenic claudication due to lumbar spinal stenosis: Plan: L3-S1 decompression fusion History of Present Illness Chief Complaint: Back and leg pain Primary Care Provider: Ventura Vaughn MD This is a 83-year-old male who presents chronic persistent back and leg pain and pain since course of nonoperative care is here for surgical invention. Allergies Allergy/AdvReac Type Severity Reaction Status Date / Time sulfamethoxazole AdvReac Intermediate Decreased Verified 12/19/23 08:22 [From Bactrim] kidney function trimethoprim [From Bactrim] AdvReac Intermediate Decreased Verified 12/19/23 08:22 kidney function Home Medications Medication Instructions Recorded Confirmed Type acetaminophen 500 mg tablet 1,000 mg PO BID PAIN 02/25/23 12/19/23 History (Tylenol Extra Strength) allopurinol 100 mg tablet 100 mg PO BID 02/25/23 12/19/23 History atorvastatin 10 mg tablet 10 mg PO HS 02/25/23 12/19/23 History cholecalciferol (vitamin D3) 25 25 mcg PO Q OTHER DAY 02/25/23 12/19/23 History mcg (1,000 unit) capsule (Vitamin D3) docusate sodium 50 mg capsule 50 mg PO QAM 02/25/23 12/19/23 History gabapentin 100 mg capsule 200 mg PO BID 02/25/23 12/19/23 History losartan 25 mg tablet 50 mg PO QAM 02/25/23 12/19/23 History omega-3 fatty acids-fish oil 684 1 cap PO BID 02/25/23 12/19/23 History mg-1,200 mg capsule,delayed release omeprazole 20 mg capsule,delayed 20 mg PO DAILYBB 02/25/23 12/19/23 History release prednisolone acetate 1 % eye 1 drp OPB HS 02/25/23 12/19/23 History drops,suspension psyllium husk 3.4 gram/5.4 gram 1 tbsp PO BID 02/25/23 12/19/23 History oral powder (Metamucil) warfarin 5 mg tablet See Rx Instructions .Route .COMPLEX 02/25/23 12/19/23 History Pancreat-Bet LIx-gtw-nqhj-pap 250 1 cap PO BID 11/28/23 12/19/23 History mg-162 mg-65 mg-125 mg capsule (Super Enzyme) coenzyme Q10 100 mg capsule 100 mg PO QAM 11/28/23 12/19/23 History (CoQ-10) cyanocobalamin (vitamin B-12) 1,000 mcg PO 3XWK 11/28/23 12/19/23 History 1,000 mcg tablet (Vitamin B-12) multivitamin 1 tab PO DAILY 12/06/23 12/19/23 History Past Med/Surg History Medical History Chronic back pain CKD (chronic kidney disease), stage III DVT (deep venous thrombosis) RLE, 2005 Taking Warfarin Dyslipidemia HTN (hypertension) Kidney donor mid donated kidney Obesity TYESHA (obstructive sleep apnea) CPAP (compliant) Osteoarthritis Scoliosis Surgical History H/O cornea transplant bilateral eyes History of eye surgery right macular treatment History of hernia surgery History of kidney donation Left (Mid ) History of repair of left rotator cuff Hx of cholecystectomy Family History Other Heart disease No family history of adverse response to anesthesia Social History (Updated 02/28/23 @ 17:49 by Tigist Jarquin PA-C) Smoking Status: Never smoker Second Hand Exposure: No; Do You Dip or Chew Tobacco: No; Tobacco Cessation Education Requested by Patient: No Hx Alcohol Use: No Hx Substance Use: No Preferred Language: [place] Communication Ability: Effective Pastry Baker Required: No Beliefs That Will Affect Care: None Current Living Situation: Significant Other Other Information That Helps Us Care for You: No Feels Safe at Home: Yes Safety Concerns: Feels Safe At This Time Assistive Devices: Contacts, CPAP and Hearing Aid - Bilateral Physical Exam Physical Exam: Patient is alert and oriented Heart regular rhythm Lungs clear Results & Data Results & Data Vital Signs (Past 12 Hours) Vital Signs Temp Pulse Resp BP Pulse Ox O2 Del Method 12/19/23 08:20 36.6 C 65 20 145/85 H 95 Room Air
[2023-12-19] MEDS ORDERED: fentaNYL citrate PF 100 MCG/2 ML VIAL ONE ×2 (09:05→10:58)
[2023-12-19] MEDS ORDERED: ROCURONIUM BROMIDE 10 MG/ML 5 ML VIAL IV ONE ×3 (09:06→10:01)
[2023-12-19] MEDS ORDERED: LIDOCAINE 2% 2 ML VIAL/AMP(20MG/ML) INFIL ONE (09:06)
[2023-12-19] MEDS ORDERED: PROPOFOL IV EMULSION 10 MG/ML 20 ML VIAL IV ONE (09:06)
[2023-12-19 09:22] LABS: INR 1.2 (0.9-1.1); Partial Thromboplastin Ratio 1.1; Partial Thromboplastin Time 30 Seconds (21-31)
[2023-12-19] MEDS ORDERED: ONDANSETRON INJ 2 MG/ML 2 ML VIAL ONE (09:51)
[2023-12-19] MEDS ORDERED: DEXAMETHASONE SOD INJ 4 MG/ML VIAL ONE (09:51)
[2023-12-19] MEDS ORDERED: ePHEDrine sulfate 50 MG/ML AMP ONE (10:08)
[2023-12-19] MEDS: BUPIVACAINE/EPINEPHRINE 0.5% MPF 1:200,000 30 ML VIAL ONE (10:16)
[2023-12-19] MEDS ORDERED: SUGAMMADEX SODIUM 200 MG/2 ML VIAL IV ONE (11:41)
[2023-12-19] MEDS: ceFAZolin 330 MG/ML 1 GM VIAL ONE (12:06)
[2023-12-19] MEDS: FLOSEAL HEMOSTATIC MATRIX 10ML TOP ONE (12:13)
--- NOTE | 2023-12-19 12:20 | Operative Report ---
Post Operative Report Pre & Post Diagnosis Operation Date: 12/19/23 09:25 Pre-Op Diagnosis: Neurogenic claudication due to lumbar spinal stenosis Spondylolisthesis L5-S1 Post-Op Diagnosis: Same I identified the patient and participated in the time-out.: Yes Procedure Operation Date: 12/19/23 09:25 Actual Procedures Lumbar decompression bilaterally for segment and foraminotomies L2-L3, L3-L4, L4-5 and L5-S1. #2 posterior spinal fusion L3-S1. #3 placement posterior segmental instrumentation L3-S1. #4 interbody fusion L3-L4, L4-5 and L5-S1. #5 placement Spira 13 x 26 mm at L3-4, 14 x 26 mm at L4-5 and 15 x 26 mm at L5-S1 x 2. #6 placement locally harvested morselized autograft and posterior gutters. #7 placement infuse collagen sponge combined with Koros in the posterior lateral gutters and Morpheus bone graft interbody space. Surgeon Mg Khan, DO Fiscal Accounting Clerk [place] Estimated Blood Loss 1,050 Findings See Below The patient is 5 foot 8 weighing over 95 kg with a BMI in excess of 31. This combined with an EBL of greater than 1000 cc created significant technical difficulty adding least 50% increased operative time. Specimens None Indications This is an 83-year-old male who presents above-mentioned diagnosis of pain course of nonoperative care is here for surgical invention. Description of Procedure Patient met with identified informed sent obtained. Patient was then taken to the operative suite underwent patient placed in a prone position the Effort table top Jama frame. All bony prominences well-padded eyes inspected to ensure no external pressure placed upon them. This point the lumbar spine was prepped and draped in the normal sterile fashion. Sharp dissection with the assistance bradycardia from down to and exposing the lamina transverse processes of L3 L4-5 and sacral ala bilaterally. From caudal cephalad fashion complete laminectomy L5 L4 L3 and partial laminectomy of L2 was performed including bilateral medial facetectomies foraminotomies addressing severe spinal stenosis. Pedicle screws then placed in L3-L4-L5 and S1 levels bilaterally with assistance of fluoroscopy and appropriate sized jenifer placed. By way the transforaminal approach on the right a discectomy L5-S1 was performed endplates guided to subcortical bleeding bone and a 15 x 26 mm Spira cage filled with Morpheus bone graft tapped in position. Then proceeded to the left transforaminal region at L5-S1 completed the discectomy endplates curetted to subcortical bleeding bone and a second 15 x 26 mm Spira cage with Morpheus bone graft tapped in position. Then proceeded L4-L5 and by way the transforaminal approach on the right discectomy performed endplates guided to subcortical bleeding bone and a 14 x 26 mm Spira cage with Morpheus bone graft tapped in position. Lastly proceeded to L3-L4 by way the transforaminal approach on the right complete discectomy performed endplates guided to subcortical bleeding bone and a 13 x 26 mm Spira cage filled with Morpheus bone graft tapped the position. The rods then compressed locked into final position bilaterally. The transverse processes of L3 L4-5 and the sacral ala burred to subcortical bleeding bone. Infuse collagen sponge combined with Koros bone graft locally harvested morselized graft was placed in posterior gutters. 15 round RENETTA drain inserted. The incision was then closed with 1 Vicryl the fascia 2-0 Vicryl subcutaneously and 4 Monocryl for final skin closure. Steri-Strips sterile dressings placed. Patient waken taken to PACU in stable condition. Please note spinal cord monitoring was utilized at the procedure no changes noted. Lastly [place] was present at the entire surgeon while the patient positioning complex portion of the surgery and final skin closure. I attest to the content of the Intraoperative Record and any orders documented therein. Any exceptions are noted below.
--- NOTE | 2023-12-19 12:42 | Fluoroscopy Report ---
FL lumbar spine 2-3V CLINICAL HISTORY: L3-S1 DECOMP AND FUSION COMPARISON STUDY: None. FLUOROSCOPY TIME: 32 seconds FLUOROSCOPY IMAGES: 2 Ka,r: 24.2 mGy FINDINGS: Posterior decompression and fusion from L3 through S1 with pedicle screws and rods. The warner dware is intact. Disc spacers are in place. IMPRESSION: Fluoroscopic assistance as above. ACT 112: Negative or not required by law. Electronically signed by: Raymon Butt M.D. 12/19/2023 12:41 PM
[2023-12-19] MEDS: fentaNYL citrate PF 100 MCG/2 ML VIAL IV PRN (13:06)
--- NOTE | 2023-12-19 13:35 | Anesthesiology Progress Note ---
Date of Service December 19, 2023 Anesthesia Post Procedure Vital Signs Vital Signs: Temp Pulse Resp BP Pulse Ox O2 Del Method O2 Flow Rate 12/19/23 13:30 97.3 F L 62 14 122/69 93 Nasal Cannula 3 12/19/23 13:20 97.3 F L 65 12 127/69 93 Nasal Cannula 3 12/19/23 13:10 97.3 F L 61 16 124/70 92 Nasal Cannula 3 12/19/23 13:00 97.3 F L 69 13 112/84 95 Nasal Cannula 3 12/19/23 12:50 68 15 134/87 94 Oxymask 3 12/19/23 12:40 69 15 115/71 96 Oxymask 4 12/19/23 12:34 97.3 F L 79 18 109/64 94 Oxymask 5 12/19/23 08:20 97.9 F 65 20 145/85 H 95 Room Air Pain Intensity Lower Back: Pain Intensity: 2 Transfer of Care Handoff Completed per policy Notes Mental Status: alert / awake / arousable and participated in evaluation Patient Amnestic to Procedure: Yes Nausea / Vomiting: adequately controlled Pain: adequately controlled Airway Patency, RR, SpO2: stable & adequate BP & HR: stable & adequate Hydration State: stable & adequate Anesthetic Complications: no major complications apparent and Pt Satisfied with anesthetic care
[2023-12-19] MEDS: LACTATED RINGER'S 1,000 ML IV SCH (13:50)
[2023-12-19] MEDS ORDERED: LORazepam 0.5 MG in SYRINGE 0.25 ML IV PRN (13:59)
[2023-12-19] MEDS ORDERED: ACETAMINOPHEN 500 MG TAB PO PRN (13:59)
[2023-12-19] MEDS ORDERED: PROMETHAZINE HCL 12.5 MG in SODIUM CHLORIDE 0.9% 50 ML IV PRN (13:59)
[2023-12-19] MEDS ORDERED: DO NOT ADMINISTER FLU VACCINE PRN (13:59)
[2023-12-19] MEDS ORDERED: DO NOT ADMINISTER PNEUMOCOCCAL VACCINE PRN (13:59)
[2023-12-19] MEDS ORDERED: oxyCODONE HCL IR 5 MG TAB (IMMEDIATE RELEASE) PO PRN (13:59)
[2023-12-19] MEDS ORDERED: NALOXONE HCL 0.4 MG/1 ML VIAL/CARP IV PRN (13:59)
[2023-12-19] MEDS ORDERED: bisacodyL 10 MG SUPP PR PRN (13:59)
[2023-12-19] MEDS ORDERED: SOD PHOSPHATE/SOD BIPHOSPHATE ENEMA 132 ML BTL PR PRN (13:59)
[2023-12-19] MEDS ORDERED: hydrOXYzine HCl 25 MG TAB PO PRN (13:59)
[2023-12-19] MEDS ORDERED: HYDROmorphone INJ 1 MG/ML SYRINGE IV PRN (13:59)
[2023-12-19] MEDS ORDERED: ACETAMINOPHEN 1,000 MG/100 ML VIAL IV PRN (13:59)
[2023-12-19] MEDS ORDERED: ALUMINUM/MAGNESIUM SUSP 30 ML UDC PO PRN (13:59)
[2023-12-19] MEDS ORDERED: ONDANSETRON 4 MG OD TAB PO PRN (13:59)
[2023-12-19] MEDS ORDERED: diphenhydrAMINE Capsule 25 MG CAP PO PRN (13:59)
[2023-12-19] MEDS ORDERED: METOCLOPRAMIDE HCL INJ 5 MG/ML 2 ML VIAL IV PRN (13:59)
[2023-12-19] MEDS ORDERED: FAMOTIDINE 20 MG TAB PO PRN (13:59)
[2023-12-19] MEDS ORDERED: LORazepam 0.5 MG TAB PO PRN (13:59)
[2023-12-19] MEDS ORDERED: MAGNESIUM HYDROXIDE SUSP 30 ML UDC PO PRN (13:59)
[2023-12-19] MEDS: HYDROmorphone INJ 0.5 MG/0.5 ML SYR IV PRN (14:25)
--- NOTE | 2023-12-19 14:41 | Consultation ---
Date of Consultation December 19, 2023 Assessment & Plan (1) Neurogenic claudication due to lumbar spinal stenosis: (2) Chronic deep vein thrombosis (DVT): (3) CKD (chronic kidney disease), stage III: (4) HTN (hypertension): (5) Dyslipidemia: (6) TYESHA (obstructive sleep apnea): Plan Neurogenic claudication, lumbar spinal stenosis S/P L3-S1 lumbar decompression/fusion tolerated procedure well EBL: 1050ml pain/wound management per orthopedics activity and therapy as prescribed by ortho will await orthopedic recommends when Dr. Khan feels hemostasis achieved to resume lovenox/warfarin bridge Chronic DVT will defer to Dr. Khan when he feels comfortable resume lovenox/warfarin bridge per [facility] Pharmacy: Lovenox Bridge: POD #1 @ 8 p.m. and warfarin 10mg in p.m. POD #2: Lovenox 80mg BID; Warfarin 5mg in p.m. continue lovenox bridge and warfarin 5mg until INR > 2 CKD-3 baseline cr 1.5 avoid nephrotoxic agents HTN chronic, stable HLD chronic, stable continue statin TYESHA chronic, stable continue cpap DVT ppx: lovenox/warfarin on hold at discretion of ortho Dispo: per primary FULL CODE PCP: Dr. Vaughn PT was seen and examined in collaboration with Dr. Templeton, please see addendum A total of 50 minutes was spent coordinating, documenting, and providing care for this patient excluding time spent in the performance of separately billed services. This included personally viewing all current laboratories and imaging studies, medication reconciliation, outpatient chart review, and discussion with specialists. Thank you for this consultation. We will follow the patient with you during their hospital stay. You can reach a member of the [facility] Hospitalist Team 24/04 via hospitalist role on tiger text. Supervising Physician Co-Signing Physician Notes Pt was seen and examined by myself, Tonie Templeton MD on the day of service. Care was coordinated with Eugenie Mack PA-C. Pt was seen post-op lumbar decompression and fusion laying in bed trying to eat. Denied acute concerns at that time. Hx of DVT, home warfarin on hold in the post op setting. Appreciate ortho spine recs for when to resume. Would recommend resuming with bridge as soon as possible. Otherwise as above. I spent a total [id number] coordinating, documenting, and providing care for this patient excluding time spent in the performance of separately billed services History of Present Illness Requesting Physician: Dr. Khan Reason for Consultation: post op medical management. Attending Physician: Mg Khan, DO History of Present Illness This is an 83-year-old male who has significant past medical history of HTN, HLD, gout, first-degree AV block, history of chronic DVT on warfarin, acquired solitary kidney, CKD stage III and GERD who presents for elective lumbar procedure by Dr. Khan. He underwent elective L3-S1 decompression. By Dr. Khan. He has significant past medical history of DVT currently on warfarin therapy. He did undergo Lovenox warfarin bridge and his last dose of Lovenox was Monday morning. Post operatively he is doing well. He denies f/c/s, chest pain, sob, n/v/d, abd pain. He is c/o R calf pain, numbness/tingling. Due to prior hx of DVT he is worried this is a DVT now that he is off warfarin/lovenox. Appetite has been good. Allergies Allergy/AdvReac Type Severity Reaction Status Date / Time sulfamethoxazole AdvReac Intermediate Decreased Verified 12/19/23 08:22 [From Bactrim] kidney function trimethoprim [From Bactrim] AdvReac Intermediate Decreased Verified 12/19/23 08:22 kidney function Home Medications Medication Instructions Recorded Confirmed Type acetaminophen 500 mg tablet 1,000 mg PO BID PAIN 02/25/23 12/19/23 History (Tylenol Extra Strength) allopurinol 100 mg tablet 100 mg PO BID 02/25/23 12/19/23 History atorvastatin 10 mg tablet 10 mg PO HS 02/25/23 12/19/23 History cholecalciferol (vitamin D3) 25 25 mcg PO Q OTHER DAY 02/25/23 12/19/23 History mcg (1,000 unit) capsule (Vitamin D3) docusate sodium 50 mg capsule 50 mg PO QAM 02/25/23 12/19/23 History gabapentin 100 mg capsule 200 mg PO BID 02/25/23 12/19/23 History losartan 25 mg tablet 50 mg PO QAM 02/25/23 12/19/23 History omega-3 fatty acids-fish oil 684 1 cap PO BID 02/25/23 12/19/23 History mg-1,200 mg capsule,delayed release omeprazole 20 mg capsule,delayed 20 mg PO DAILYBB 02/25/23 12/19/23 History release prednisolone acetate 1 % eye 1 drp OPB HS 02/25/23 12/19/23 History drops,suspension psyllium husk 3.4 gram/5.4 gram 1 tbsp PO BID 02/25/23 12/19/23 History oral powder (Metamucil) warfarin 5 mg tablet See Rx Instructions .Route .COMPLEX 02/25/23 12/19/23 History Pancreat-Bet UIm-xty-hssc-pap 250 1 cap PO BID 11/28/23 12/19/23 History mg-162 mg-65 mg-125 mg capsule (Super Enzyme) coenzyme Q10 100 mg capsule 100 mg PO QAM 11/28/23 12/19/23 History (CoQ-10) cyanocobalamin (vitamin B-12) 1,000 mcg PO 3XWK 11/28/23 12/19/23 History 1,000 mcg tablet (Vitamin B-12) multivitamin 1 tab PO DAILY 12/06/23 12/19/23 History Patient History Medical History Obesity Chronic back pain Scoliosis Osteoarthritis CKD (chronic kidney disease), stage III HTN (hypertension) Dyslipidemia TYESHA (obstructive sleep apnea) CPAP (compliant) DVT (deep venous thrombosis) [id number] Taking Warfarin Kidney donor mid donated kidney Surgical History History of kidney donation Left (Mid ) History of repair of left rotator cuff History of hernia surgery History of eye surgery right macular treatment H/O cornea transplant bilateral eyes Hx of cholecystectomy Family History Other Heart disease No family history of adverse response to anesthesia Social History Smoking Status: Never smoker Second Hand Exposure: No; Do You Dip or Chew Tobacco: No; Tobacco Cessation Education Requested by Patient: No Hx Alcohol Use: No Hx Substance Use: No Preferred Language: Croatian Communication Ability: Effective Manufacturing Intern Required: No Beliefs That Will Affect Care: None Current Living Situation: Significant Other Other Information That Helps Us Care for You: No Feels Safe at Home: Yes Safety Concerns: Feels Safe At This Time Assistive Devices: Contacts, CPAP and Hearing Aid - Bilateral Review of Systems Review of Systems: All systems reviewed & are unremarkable except as noted in HPI & below Physical Exam Physical Exam: Constitutional: WD/WN, vitals as above, NAD, sitting up in bed, pleasant, conversing easily Head: Normocephalic, Atraumatic Eyes: PERRL, conjunctivae normal, anicteric sclerae ENMT: external ear and nose normal, oropharynx normal Neck: trachea midline, no thyromegaly normal visual inspection Respiratory: normal respiratory effort, lungs clear to auscultation, no wheeze, rales, rhonchi. Normal insp/exp effort, no accessory muscle use Cardiovascular: RRR, no murmur, no edema Vessels: no JVD or carotid bruit Chest: normal inspection of chest Abdomen: normal bowel sounds, soft, nontender, no hepatosplenomegaly Musculoskeletal: no cyanosis or clubbing, extremities motor strength 5/5, RENETTA drain with serosang drainage, lumbar dressing CDI Skin: no rashes, warm and dry normal turgor Neurologic: PERRL, EOMI, accommodation nl, no face palsy, no dysarthria CN's II-XI intact bilaterally and moves all extremities Psychiatric: A+Ox3, euthymic affect Lymphatic: no cervical or axillary lymphadenopathy : deferred Results & Data Vital Signs (Past 12 Hours) Vital Signs Temp Pulse Pulse Resp BP Pulse Ox O2 Del Method 12/19/23 14:22 36.4 C L 64 16 119/75 95 Nasal Cannula 12/19/23 13:59 Nasal Cannula 12/19/23 13:59 36.4 C L 64 16 129/77 93 Nasal Cannula 12/19/23 13:30 36.3 C L 62 14 122/69 93 Nasal Cannula 12/19/23 13:20 36.3 C L 65 12 127/69 93 Nasal Cannula 12/19/23 13:10 36.3 C L 61 16 124/70 92 Nasal Cannula 12/19/23 13:00 36.3 C L 69 13 112/84 95 Nasal Cannula 12/19/23 12:50 68 15 134/87 94 Oxymask 12/19/23 12:40 69 15 115/71 96 Oxymask 12/19/23 12:34 36.3 C L 79 18 109/64 94 Oxymask 12/19/23 08:20 36.6 C 65 20 145/85 H 95 Room Air O2 Flow Rate 12/19/23 14:22 2 12/19/23 13:59 2 12/19/23 13:59 2 12/19/23 13:30 3 12/19/23 13:20 3 12/19/23 13:10 3 12/19/23 13:00 3 12/19/23 12:50 3 12/19/23 12:40 4 12/19/23 12:34 5 12/19/23 08:20 Laboratory Results Preoperative INR 1.2 Preoperative lab work done on 12/01/2023 reviewed. BUN/creatinine 28 and 1.5, H&H 13.8 and 41.5 Diagnostic Findings Lumbar Spine X-Ray 12/19/23 00:00 FL lumbar spine 2-3V CLINICAL HISTORY: L3-S1 DECOMP AND FUSION COMPARISON STUDY: None. FLUOROSCOPY TIME: 32 seconds FLUOROSCOPY IMAGES: 2 Ka,r: 24.2 mGy FINDINGS: Posterior decompression and fusion from L3 through S1 with pedicle screws and rods. The hardware is intact. Disc spacers are in place. IMPRESSION: Fluoroscopic assistance as above. ACT 112: Negative or not required by law. Electronically signed by: Raymon Butt M.D. 12/19/2023 12:41 PM Medications Administered Current Inpatient Medications Acetaminophen (Acetaminophen 500 Mg Tab) 1,000 mg PO PREOP UMM Stop: 12/19/23 18:00 Last Admin: 12/19/23 08:50 Dose: 1,000 mg Acetaminophen (Acetaminophen 500 Mg Tab) 1,000 mg PO Q8H PRN PRN Reason: MILD Pain Scale 1,2,3 & Pre PT Stop: 01/18/24 13:58 Al Hydrox/Mg Hydrox/Simethicone (Aluminum/Magnesium Susp 30 Ml Udc) 30 ml PO Q6H PRN PRN Reason: Dyspepsia Stop: 01/18/24 13:58 Allopurinol (Allopurinol 100 Mg Tab) 100 mg PO BID UMM Stop: 01/18/24 20:59 Atorvastatin Calcium (Atorvastatin 10 Mg Tab) 10 mg PO HS UMM Stop: 01/18/24 20:59 Atropine Sulfate (Atropine Sulfate 0.1 Mg/Ml 10ml Syr) 0.5 mg IV Q1M PRN PRN Reason: PACU Use-HR<40 &/or Bradycardi Stop: 12/19/23 16:32 Bisacodyl (Bisacodyl 10 Mg Supp) 10 mg NE DAILY PRN PRN Reason: Constipation Stop: 01/18/24 13:58 Celecoxib (Celebrex 200 Mg Cap) 200 mg PO PREOP UMM Stop: 12/19/23 18:00 Last Admin: 12/19/23 08:50 Dose: 200 mg Cyanocobalamin (Cyanocobalamin (B-12) 500 Mcg Tablet) 1,000 mcg PO [id number] [facility] Stop: 01/19/24 08:59 Diphenhydramine HCl (Diphenhydramine Capsule 25 Mg Cap) 25 mg PO Q6H PRN PRN Reason: Allergic Rhinitis/Insomnia Stop: 01/18/24 13:58 Ephedrine Sulfate (Ephedrine Sulfate 50 Mg/Ml Amp) 5 mg IV Q5M PRN PRN Reason: PACU Use Only-SBP<90 mmHg Stop: 12/19/23 16:32 Famotidine (Famotidine 20 Mg Tab) 20 mg PO Q12H PRN PRN Reason: Dyspepsia Stop: 01/18/24 13:58 Fentanyl Citrate (Fentanyl Citrate Pf 100 Mcg/2 Ml Vial) 25 mcg IV Q5M PRN PRN Reason: PACU Use Only-Pain Stop: 12/19/23 16:32 Last Admin: 12/19/23 13:06 Dose: 25 mcg Gabapentin (Gabapentin 300 Mg Cap) 300 mg PO PREOP UMM Stop: 12/19/23 18:00 Last Admin: 12/19/23 08:50 Dose: 300 mg Gabapentin (Gabapentin 100 Mg Cap) 200 mg PO BID UMM Stop: 01/18/24 20:59 Hydromorphone HCl (Hydromorphone Inj 0.5 Mg/0.5 Ml Syr) 0.5 mg IV Q3H PRN PRN Reason: MODERATE Pain (Scale 4,5,6) & Pre PT Stop: 01/02/24 13:58 Last Admin: 12/19/23 14:25 Dose: 0.5 mg Hydromorphone HCl (Hydromorphone Inj 1 Mg/Ml Syringe) 1 mg IV Q3H PRN PRN Reason: SEVERE Pain (Scale 7,8,9,10) Stop: 01/02/24 13:58 Hydroxyzine HCl (Hydroxyzine Hcl 25 Mg Tab) 25 mg PO Q8H PRN PRN Reason: Anxiety Stop: 01/18/24 13:58 Lactated Ringer's (Lr) 1,000 mls @ 15 mls/hr IV .Q24H UMM Stop: 12/20/23 08:29 Last Infusion: 12/19/23 09:32 Dose: Infused Lactated Ringer's (Lr) 1,000 mls @ 60 mls/hr IV .[id number] UMM Stop: 12/20/23 01:09 Last Admin: 12/19/23 08:50 Dose: Not Given Cefazolin Sodium (Ancef 2000mg) 2,000 mg in 15 mls @ 3.75 mls/min IV PREOP UMM; Protocol Stop: 12/20/23 05:59 Last Admin: 12/19/23 09:34 Dose: 3.75 mls/min Lactated Ringer's (Lr) 1,000 mls @ 100 mls/hr IV .Q10H UMM Stop: 01/18/24 13:58 Last Admin: 12/19/23 13:50 Dose: 100 mls/hr Promethazine HCl 12.5 mg/ (Sodium Chloride) 50.5 mls @ 202 mls/hr IV Q6H PRN PRN Reason: Nausea &/or Vomiting Stop: 01/18/24 13:58 Acetaminophen (Ofirmev) 1,000 mg in 100 mls @ 400 mls/hr IV Q8H PRN PRN Reason: Pain Rating 1-3 & Pre PT Stop: 12/20/23 13:59 Cefazolin Sodium (Ancef 2000mg) 2,000 mg in 15 mls @ 3.75 mls/min IV Q8H UMM; Protocol Stop: 12/20/23 02:33 Lorazepam 0.5 mg/ Syringe 0.5 mls @ 2 mls/min IV Q8H PRN; Protocol PRN Reason: Sedation/Anxiety Stop: 01/18/24 13:58 Dexamethasone 6 mg/ Syringe 1.5 mls @ 1 mls/min IV DAILY UMM Stop: 12/22/23 09:02 Influenza Virus Vaccine Quadrival (Do Not Administer Flu Vaccine) 1 each N/A PRN PRN PRN Reason: Notification Stop: 01/18/24 13:58 Lorazepam (Lorazepam 0.5 Mg Tab) 0.5 mg PO Q8H PRN PRN Reason: Sedation/Anxiety Stop: 01/18/24 13:58 Losartan Potassium (Losartan Potassium 50 Mg Tab) 50 mg PO QAM UMM Stop: 01/19/24 08:59 Magnesium Hydroxide (Magnesium Hydroxide Susp 30 Ml Udc) 30 ml PO Q24H PRN PRN Reason: Constipation Stop: 01/18/24 13:58 Metoclopramide HCl (Metoclopramide Hcl Inj 5 Mg/Ml 2 Ml Vial) 10 mg IV Q6H PRN PRN Reason: Nausea &/or Vomiting Stop: 01/18/24 13:58 Naloxone HCl (Naloxone Hcl 0.4 Mg/1 Ml Vial/Carp) 0.1 mg IV Q5M PRN PRN Reason: Oversedation/Resp depression Stop: 01/18/24 13:58 Ondansetron HCl (Ondansetron Inj 2 Mg/Ml 2 Ml Vial) 4 mg IV ONCE PRN PRN Reason: PACU Use Only-Nausea/Vomiting Stop: 12/19/23 16:32 Ondansetron HCl (Ondansetron Inj 2 Mg/Ml 2 Ml Vial) 4 mg IV Q6H PRN PRN Reason: Nausea &/or Vomiting Stop: 01/18/24 13:58 Ondansetron HCl (Ondansetron 4 Mg Od Tab) 4 mg PO Q6H PRN PRN Reason: Nausea Stop: 01/18/24 13:58 Oxycodone HCl (Oxycodone Hcl Ir 5 Mg Tab (Immediate Release)) 5 - 10 mg PO Q4H PRN PRN Reason: Pain & Pre PT Stop: 01/02/24 13:58 Pantoprazole Sodium (Pantoprazole 40 Mg Tab) 40 mg PO DAILYBB [facility]; Protocol Stop: 01/19/24 06:29 Pneumococcal Polyvalent Vaccine (Do Not Administer Pneumococcal Vaccine) 1 each N/A PRN PRN PRN Reason: Notification Stop: 01/18/24 13:58 Polyethylene Glycol (Polyethylene (Miralax) 17 Gm Pack) 17 gm PO Q6 [facility] Stop: 01/19/24 05:59 Prednisolone Acetate (Prednisolone Acetate 1% Op Susp 5 Ml Btl) 1 drops OPB HS UMM Stop: 01/18/24 20:59 Senna/Docusate Sodium (Docusate Sodium/Senna 50/8.6mg Tab) 2 tab PO HS UMM Stop: 01/18/24 20:59 Sodium Biphosphate/Sodium Phosphate (Sod Phosphate/Sod Biphosphate Enema 132 Ml Btl) 132 ml NE ONE PRN PRN Reason: Constipation Stop: 01/18/24 13:58 Tramadol HCl (Tramadol Hcl 50 Mg Tablet) 50 - 100 mg PO Q4H PRN PRN Reason: Moderate-Severe pain & Pre PT Stop: 01/18/24 13:58 Vitamin D (Cholecalciferol 25 Mcg (1000 Units) Tab) 25 mcg PO Q2D@0900 UMM Stop: 01/18/24 13:58 ECG Additional Comments: I have independently reviewed and interpreted patient's admitting EKG which revealed: Sinus rhythm with first-degree AV block, ventricular rate 62 bpm
--- NOTE | 2023-12-19 16:17 | Ultrasound Report ---
ULTRASOUND RIGHT LOWER EXTREMITY VENOUS CLINICAL HISTORY: Right leg pain. COMPARISON STUDY: Bilateral lower extremity venous ultrasound dated 02/28/2023. TECHNIQUE: Real-time, grayscale, and color Doppler sonography of the deep veins of the right lower ex tremity was performed from the inguinal crease to the calf. Compression and augmentation were utilize d. FINDINGS: There is no sonographic evidence of acute deep venous thrombosis identified in the right lo wer extremity. A small amount of chronic appearing thrombus is again seen within the right proximal t o mid portions of the superficial femoral vein. This is similar to the 02/28/2023 examination. A small amount of nonocclusive chronic appearing thrombus is also seen within the popliteal vein. The common femoral, superficial femoral, and popliteal veins are otherwise patent and normally compressible. Th e greater saphenous vein and the profunda femoris vein at the junction with the common femoral vein a re clear. The visualized calf veins are patent. IMPRESSION: 1. There is no sonographic evidence of acute deep venous thrombosis identified in the right lower ext remity. 2. Chronic appearing nonocclusive thrombus is seen within the right superficial femoral and popliteal veins as above. ACT 112: Negative or not required by law. Electronically signed by: Jose Vides M.D. 12/19/2023 4:16 PM
[2023-12-19] MEDS: CHOLECALCIFEROL 25 MCG (1000 UNITS) TAB PO SCH (16:42)
[2023-12-19] MEDS: traMADol HCL 50 MG TABLET PO PRN (17:27)
[2023-12-19 19:23] LABS: Hematocrit (blood only) 35.8 % (42.0-52.0); Hemoglobin 11.8 g/dl (14.0-18.0)
[2023-12-19] MEDS ORDERED: [UNRECOGNIZED DRUG - MIXTURE] PO SCH (21:00)
[2023-12-19] MEDS: GABAPENTIN 100 MG CAP PO SCH (21:42)
[2023-12-19] MEDS: ATORVASTATIN 10 MG TAB PO SCH (21:43)
[2023-12-19] MEDS: DOCUSATE SODIUM/SENNA 50/8.6MG TAB PO SCH (21:43)
[2023-12-19] MEDS: allopurinoL 100 MG TAB PO SCH (21:43)
[2023-12-19] MEDS: prednisoLONE acetate 1% OP SUSP 5 ML BTL OPB SCH (21:44)
[2023-12-20] MEDS: PANTOprazole 40 MG TAB PO SCH (05:48)
[2023-12-20] MEDS: POLYETHYLENE (MIRALAX) 17 GM PACK PO SCH (05:51)
[2023-12-20 06:12] LABS: Hematocrit (blood only) 29.9 % (42.0-52.0); Hemoglobin 10.3 g/dl (14.0-18.0); Immature Granulocytes # (auto) 0.08 K/uL (0.01-0.20); Immature Granulocytes % (auto) 0.6 %; Lymphocytes # (auto) 1.12 K/uL (1.20-3.40); Lymphocytes % (auto) 8.7 %; Mean Corpuscular Hemoglobin 29.8 pg (25.0-34.0); Mean Corpuscular Hgb Conc 34.4 g/dL (32.0-36.0); Mean Corpuscular Volume 86.4 fL (80.0-100.0); Mean Platelet Volume 10.7 fL (9.4-12.4); Monocytes % (auto) 20.9 %; Neutrophils # (auto) 9.03 K/uL (1.40-6.50); Neutrophils % (auto) 69.8 %; Platelet Count 112 K/uL (130-400); RDW Coefficient of Variation 14.2 % (11.5-14.5); Red Blood Count 3.46 M/uL (4.70-6.10); White Blood Count 12.93 K/ul (4.8-10.8)
[2023-12-20 06:29] LABS: BUN Creatinine Ratio 20.7 (10-20); Calcium 7.9 mg/dl (8.6-10.3); Est GFR (African American) 56.7 ml/min; Est GFR (Non-African American) 48.9 ml/min; Potassium 4.4 mmol/L (3.5-5.1)
--- NOTE | 2023-12-20 08:25 | Orthopedic Progress Note ---
Date of Service December 20, 2023 Assessment & Plan (1) Neurogenic claudication due to lumbar spinal stenosis: Plan: [place] is postoperative day 1 status post L3-S1 decompression instrumented fusion. Will start physical therapy today. DVT prophylaxis is in the form teds and SCDs. Will restart anticoagulate coagulation at minimum 72 hours postop. Continue with pain control. Maintain RENETTA drain. Admission and Anticipated Discharge Date Admission Date: December 19, 2023 Ernie Paredes is postoperative day 1 status post L3-S1 decompression instrumented fusion. He had an uneventful evening. Has some swelling in his leg in which he had he has had a prior DVT 20+ years ago after sitting in a chair for a while last evening. It resolved once he got in bed. Radicular leg pain has greatly improved. Back pain is controlled. RENETTA drain output last shift was 160 cc. H&H this morning are 10.3 and 29.9 respectively. No other complaints. Review of Systems Review of Systems: All systems reviewed & are unremarkable except as noted in HPI & below Physical Exam Physical Exam: Sitting up in bed eating breakfast in no acute distress Alert and oriented x 3 calf soft nontender bilaterally Lumbar dressing is clean dry and intact with functioning RENETTA drain Strength intact bilateral lower extremities Results & Data Vital Signs (Past 12 Hours) Vital Signs Temp Pulse Resp BP BP Pulse Ox O2 Del Method 12/20/23 07:33 36.8 C 74 17 133/78 93 Room Air 12/20/23 02:55 36.6 C 71 16 112/65 92 Room Air 12/19/23 22:46 36.7 C 76 16 117/68 95 Room Air 12/19/23 20:45 95 Room Air
--- NOTE | 2023-12-20 08:30 | Hospitalist Progress Note ---
Date of Service December 20, 2023 Assessment & Plan (1) Neurogenic claudication due to lumbar spinal stenosis: (2) Chronic deep vein thrombosis (DVT): (3) CKD (chronic kidney disease), stage III: (4) HTN (hypertension): (5) Dyslipidemia: (6) TYESHA (obstructive sleep apnea): Plan Neurogenic claudication, lumbar spinal stenosis S/P L3-S1 lumbar decompression/fusion tolerated procedure well pain/wound management per orthopedics activity and therapy as prescribed by ortho will await orthopedic recommends when Dr. Khan feels hemostasis achieved to resume lovenox/warfarin bridge Acute blood loss anemia, post-op, vs. dilutional pre-op Hgb 11.8 , current Hgb 10.3 - cont. to monitor Chronic DVT will defer to Dr. Khan when he feels comfortable resume lovenox/warfarin bridge - per ortho plan to resume anticoag. at least 72 hrs after surgery per [facility]: Lovenox Bridge: POD #1 @ 8 p.m. and warfarin 10mg in p.m. POD #2: Lovenox 80mg BID; Warfarin 5mg in p.m. continue lovenox bridge and warfarin 5mg until INR > 2 CKD-3 baseline cr 1.5 avoid nephrotoxic agents HTN chronic, stable HLD chronic, stable continue statin TYESHA chronic, stable continue cpap DVT ppx: SCDs, teds for now, lovenox/warfarin on hold at discretion of ortho Dispo: per primary FULL CODE PCP: Dr. Vaughn Thank you for this consultation. We will follow the patient with you during their hospital stay. You can reach a member of the [facility] Hospitalist Team 24/04 via hospitalist role on tiger text. Admission and Anticipated Discharge Date Admission Date: December 19, 2023 Subjective Pt seen in follow up in med consult pt s/p spinal surgery Laying in bed in NAD Says he has been ambulating, Iglesias removed and he has voided Has some post-surgical pain otherwise he feels well Hx of DVT - per pt about 20 yrs go Currently no chest pain, shortness of breath. No abd. pain, n/v No BM yet Review of Systems Review of Systems: All systems reviewed & are unremarkable except as noted in Subjective Physical Exam Physical Exam: Constitutional: WD/WN M in NAD Head: Normocephalic, Atraumatic Eyes: PERRL, conjunctivae normal, anicteric sclerae ENMT: external ear and nose normal, oropharynx normal Neck: normal visual inspection Respiratory: normal respiratory effort, lungs clear to auscultation, no wheeze, rales, rhonchi. Cardiovascular: RRR, no murmur, no edema Chest: normal inspection of chest Abdomen: normal bowel sounds, soft, nontender Musculoskeletal: lumbar dressing CDI, moves extremities Skin: warm and dry Neurologic: PERRL, EOMI, no face palsy, no dysarthria, moves all extremities Psychiatric: A+Ox3, euthymic affect Results & Data Results & Data Vital Signs (Past 12 Hours) Vital Signs Temp Pulse Resp BP BP Pulse Ox O2 Del Method 12/20/23 07:33 36.8 C 74 17 133/78 93 Room Air 12/20/23 02:55 36.6 C 71 16 112/65 92 Room Air 12/19/23 22:46 36.7 C 76 16 117/68 95 Room Air 12/19/23 20:45 95 Room Air Laboratory Results 12/20/23 12/19/23 12/19/23 Range/Units 05:42 18:48 09:05 WBC 12.93 H (4.8-10.8) K/ul RBC 3.46 L (4.70-6.10) M/uL Hgb 10.3 L 11.8 L (14.0-18.0) g/dl Hct 29.9 L 35.8 L (42.0-52.0) % MCV 86.4 (80.0-100.0) fL MCH 29.8 (25.0-34.0) pg MCHC 34.4 (32.0-36.0) g/dL RDW Std Deviation 45.0 (36.4-46.3) fL RDW Coeff of Oliva 14.2 (11.5-14.5) % Plt Count 112 L (130-400) K/uL MPV 10.7 (9.4-12.4) fL Immature Gran % (Auto) 0.6 % Neut % (Auto) 69.8 % Lymph % (Auto) 8.7 % [place] % (Auto) 20.9 % Eos % (Auto) 0.0 % Baso % (Auto) 0.0 % Neut # (Auto) 9.03 H (1.40-6.50) K/uL Lymph # (Auto) 1.12 L (1.20-3.40) K/uL [place] # (Auto) 2.70 H (0.11-0.59) K/uL Eos # (Auto) 0.00 (0.00-0.50) K/uL Baso # (Auto) 0.00 (0.00-0.20) K/uL Immature Gran # (Auto) 0.08 (0.01-0.20) K/uL PT 13.0 H (9.0-12.0) Seconds INR 1.2 H (0.9-1.1) APTT 30 (21-31) Seconds PTT Ratio 1.1 Sodium 134 L (136-145) mmol/L Potassium 4.4 (3.5-5.1) mmol/L Chloride 105 (98-107) mmol/L Carbon Dioxide 24 (21-32) mmol/L Anion Gap 5 (3-11) BUN 28 H (6-23) mg/dl Creatinine 1.35 (0.6-1.4) mg/dl Est Cr Clr Drug Dosing 48.0 ml/min Est GFR ( Amer) 56.7 ml/min Est GFR (Non-Af Amer) 48.9 ml/min BUN/Creatinine Ratio 20.7 H (10-20) Glucose 136 H (70-99(Fasting)) mg/dl Calcium 7.9 L (8.6-10.3) mg/dl Blood Type Antibody Screen 12/19/23 Range/Units 08:03 WBC (4.8-10.8) K/ul RBC (4.70-6.10) M/uL Hgb (14.0-18.0) g/dl Hct (42.0-52.0) % MCV (80.0-100.0) fL MCH (25.0-34.0) pg MCHC (32.0-36.0) g/dL RDW Std Deviation (36.4-46.3) fL RDW Coeff of Oliva (11.5-14.5) % Plt Count (130-400) K/uL MPV (9.4-12.4) fL Immature Gran % (Auto) % Neut % (Auto) % Lymph % (Auto) % [place] % (Auto) % Eos % (Auto) % Baso % (Auto) % Neut # (Auto) (1.40-6.50) K/uL Lymph # (Auto) (1.20-3.40) K/uL [place] # (Auto) (0.11-0.59) K/uL Eos # (Auto) (0.00-0.50) K/uL Baso # (Auto) (0.00-0.20) K/uL Immature Gran # (Auto) (0.01-0.20) K/uL PT (9.0-12.0) Seconds INR (0.9-1.1) APTT (21-31) Seconds PTT Ratio Sodium (136-145) mmol/L Potassium (3.5-5.1) mmol/L Chloride (98-107) mmol/L Carbon Dioxide (21-32) mmol/L Anion Gap (3-11) BUN (6-23) mg/dl Creatinine (0.6-1.4) mg/dl Est Cr Clr Drug Dosing ml/min Est GFR ( Amer) ml/min Est GFR (Non-Af Amer) ml/min BUN/Creatinine Ratio (10-20) Glucose (70-99(Fasting)) mg/dl Calcium (8.6-10.3) mg/dl Blood Type A Positive Antibody Screen NEGATIVE Medications Administered Current Inpatient Medications Acetaminophen (Acetaminophen 500 Mg Tab) 1,000 mg PO Q8H PRN PRN Reason: MILD Pain Scale 1,2,3 & Pre PT Stop: 01/18/24 13:58 Al Hydrox/Mg Hydrox/Simethicone (Aluminum/Magnesium Susp 30 Ml Udc) 30 ml PO Q6H PRN PRN Reason: Dyspepsia Stop: 01/18/24 13:58 Allopurinol (Allopurinol 100 Mg Tab) 100 mg PO BID [facility] Stop: 01/18/24 20:59 Last Admin: 12/19/23 21:43 Dose: 100 mg Atorvastatin Calcium (Atorvastatin 10 Mg Tab) 10 mg PO HS [facility] Stop: 01/18/24 20:59 Last Admin: 12/19/23 21:43 Dose: 10 mg Bisacodyl (Bisacodyl 10 Mg Supp) 10 mg TN DAILY PRN PRN Reason: Constipation Stop: 01/18/24 13:58 Cyanocobalamin (Cyanocobalamin (B-12) 500 Mcg Tablet) 1,000 mcg PO MoWeFr@0900 [facility] Stop: 01/19/24 08:59 Diphenhydramine HCl (Diphenhydramine Capsule 25 Mg Cap) 25 mg PO Q6H PRN PRN Reason: Allergic Rhinitis/Insomnia Stop: 01/18/24 13:58 Famotidine (Famotidine 20 Mg Tab) 20 mg PO Q12H PRN PRN Reason: Dyspepsia Stop: 01/18/24 13:58 Gabapentin (Gabapentin 100 Mg Cap) 200 mg PO BID [facility] Stop: 01/18/24 20:59 Last Admin: 12/19/23 21:42 Dose: 200 mg Hydromorphone HCl (Hydromorphone Inj 0.5 Mg/0.5 Ml Syr) 0.5 mg IV Q3H PRN PRN Reason: MODERATE Pain (Scale 4,5,6) & Pre PT Stop: 01/02/24 13:58 Last Admin: 12/19/23 14:25 Dose: 0.5 mg Hydromorphone HCl (Hydromorphone Inj 1 Mg/Ml Syringe) 1 mg IV Q3H PRN PRN Reason: SEVERE Pain (Scale 7,8,9,10) Stop: 01/02/24 13:58 Hydroxyzine HCl (Hydroxyzine Hcl 25 Mg Tab) 25 mg PO Q8H PRN PRN Reason: Anxiety Stop: 01/18/24 13:58 Lactated Ringer's (Lr) 1,000 mls @ 15 mls/hr IV .Q24H [facility] Stop: 12/20/23 08:29 Last Infusion: 12/19/23 09:32 Dose: Infused Lactated Ringer's (Lr) 1,000 mls @ 100 mls/hr IV .Q10H [facility] Stop: 01/18/24 13:58 Last Admin: 12/20/23 00:12 Dose: 100 mls/hr Promethazine HCl 12.5 mg/ (Sodium Chloride) 50.5 mls @ 202 mls/hr IV Q6H PRN PRN Reason: Nausea &/or Vomiting Stop: 01/18/24 13:58 Acetaminophen (Ofirmev) 1,000 mg in 100 mls @ 400 mls/hr IV Q8H PRN PRN Reason: Pain Rating 1-3 & Pre PT Stop: 12/20/23 13:59 Lorazepam 0.5 mg/ Syringe 0.5 mls @ 2 mls/min IV Q8H PRN; Protocol PRN Reason: Sedation/Anxiety Stop: 01/18/24 13:58 Dexamethasone 6 mg/ Syringe 1.5 mls @ 1 mls/min IV DAILY [facility] Stop: 12/22/23 09:02 Influenza Virus Vaccine Quadrival (Do Not Administer Flu Vaccine) 1 each N/A PRN PRN PRN Reason: Notification Stop: 01/18/24 13:58 Lorazepam (Lorazepam 0.5 Mg Tab) 0.5 mg PO Q8H PRN PRN Reason: Sedation/Anxiety Stop: 01/18/24 13:58 Losartan Potassium (Losartan Potassium 50 Mg Tab) 50 mg PO QAM [facility] Stop: 01/19/24 08:59 Magnesium Hydroxide (Magnesium Hydroxide Susp 30 Ml Udc) 30 ml PO Q24H PRN PRN Reason: Constipation Stop: 01/18/24 13:58 Metoclopramide HCl (Metoclopramide Hcl Inj 5 Mg/Ml 2 Ml Vial) 10 mg IV Q6H PRN PRN Reason: Nausea &/or Vomiting Stop: 01/18/24 13:58 Naloxone HCl (Naloxone Hcl 0.4 Mg/1 Ml Vial/Carp) 0.1 mg IV Q5M PRN PRN Reason: Oversedation/Resp depression Stop: 01/18/24 13:58 Ondansetron HCl (Ondansetron Inj 2 Mg/Ml 2 Ml Vial) 4 mg IV Q6H PRN PRN Reason: Nausea &/or Vomiting Stop: 01/18/24 13:58 Ondansetron HCl (Ondansetron 4 Mg Od Tab) 4 mg PO Q6H PRN PRN Reason: Nausea Stop: 01/18/24 13:58 Oxycodone HCl (Oxycodone Hcl Ir 5 Mg Tab (Immediate Release)) 5 - 10 mg PO Q4H PRN PRN Reason: Pain & Pre PT Stop: 01/02/24 13:58 Pantoprazole Sodium (Pantoprazole 40 Mg Tab) 40 mg PO DAILYBB [facility]; Protocol Stop: 01/19/24 06:29 Last Admin: 12/20/23 05:48 Dose: 40 mg Pneumococcal Polyvalent Vaccine (Do Not Administer Pneumococcal Vaccine) 1 each N/A PRN PRN PRN Reason: Notification Stop: 01/18/24 13:58 Polyethylene Glycol (Polyethylene (Miralax) 17 Gm Pack) 17 gm PO Q6 [facility] Stop: 01/19/24 05:59 Last Admin: 12/20/23 05:51 Dose: 17 gm Prednisolone Acetate (Prednisolone Acetate 1% Op Susp 5 Ml Btl) 1 drops OPB HS [facility] Stop: 01/18/24 20:59 Last Admin: 12/19/23 21:44 Dose: 1 drops Senna/Docusate Sodium (Docusate Sodium/Senna 50/8.6mg Tab) 2 tab PO HS [facility] Stop: 01/18/24 20:59 Last Admin: 12/19/23 21:43 Dose: 2 tab Sodium Biphosphate/Sodium Phosphate (Sod Phosphate/Sod Biphosphate Enema 132 Ml Btl) 132 ml TN ONE PRN PRN Reason: Constipation Stop: 01/18/24 13:58 Tramadol HCl (Tramadol Hcl 50 Mg Tablet) 50 - 100 mg PO Q4H PRN PRN Reason: Moderate-Severe pain & Pre PT Stop: 01/18/24 13:58 Last Admin: 12/20/23 03:16 Dose: 100 mg Vitamin D (Cholecalciferol 25 Mcg (1000 Units) Tab) 25 mcg PO Q2D@0900 [facility] Stop: 01/18/24 13:58 Last Admin: 12/19/23 16:42 Dose: 25 mcg
[2023-12-20] MEDS: dexAMETHasone 6 MG in SYRINGE 0 ML IV SCH (08:39)
[2023-12-20] MEDS: LOSARTAN POTASSIUM 50 MG TAB PO SCH (08:40)
[2023-12-20] MEDS: CYANOCOBALAMIN (B-12) 500 MCG TABLET PO SCH (08:45)
[2023-12-20] MEDS ORDERED: NON-FORMULARY MEDICATION (Coenzyme Q10 [Coq-10] 100 mg Capsule) PO SCH (09:00)
[2023-12-21 07:36] LABS: Hematocrit (blood only) 28.5 % (42.0-52.0); Hemoglobin 9.6 g/dl (14.0-18.0); Mean Corpuscular Hemoglobin 29.7 pg (25.0-34.0); Mean Corpuscular Hgb Conc 33.7 g/dL (32.0-36.0); Mean Corpuscular Volume 88.2 fL (80.0-100.0); Platelet Count 106 K/uL (130-400); RDW Coefficient of Variation 14.6 % (11.5-14.5); RDW Standard Deviation 47.3 fL (36.4-46.3); Red Blood Count 3.23 M/uL (4.70-6.10); White Blood Count 11.43 K/ul (4.8-10.8)
[2023-12-21 07:50] LABS: BUN Creatinine Ratio 20.3 (10-20); Calcium 8.4 mg/dl (8.6-10.3); Creatinine Clr Calc Pharmacy 48.7 ml/min; Est GFR (African American) 57.7 ml/min; Est GFR (Non-African American) 49.8 ml/min; Phosphorus 2.2 mg/dl (2.5-4.9); Potassium 4.2 mmol/L (3.5-5.1)
--- NOTE | 2023-12-21 08:31 | Orthopedic Progress Note ---
Date of Service December 21, 2023 Assessment & Plan (1) Neurogenic claudication due to lumbar spinal stenosis: Plan: At this time continue physical therapy monitor his RENETTA output anticipate discharge home tomorrow. Admission and Anticipated Discharge Date Admission Date: December 19, 2023 Subjective Patient's back pain is controlled leg symptoms markedly improved Physical Exam Physical Exam: On exam he is sitting up at the bedside. Is good strength testing. Is comfortable. Results & Data Vital Signs (Past 12 Hours) Vital Signs Temp Pulse Resp BP Pulse Ox O2 Del Method 12/21/23 07:21 36.6 C 71 18 121/69 95 Room Air Queries Orthopedic Spine Obesity: Yes
[2023-12-21 11:35] LABS: Magnesium 1.6 mg/dl (1.7-2.4)
--- NOTE | 2023-12-21 16:18 | Hospitalist Progress Note ---
Date of Service December 21, 2023 Assessment & Plan (1) Neurogenic claudication due to lumbar spinal stenosis: (2) Chronic deep vein thrombosis (DVT): (3) CKD (chronic kidney disease), stage III: (4) HTN (hypertension): (5) Dyslipidemia: (6) TYESHA (obstructive sleep apnea): Plan per previous hospitalist notes with addendum: Neurogenic claudication, lumbar spinal stenosis S/P L3-S1 lumbar decompression/fusion tolerated procedure well pain/wound management per orthopedics activity and therapy as prescribed by ortho 12/20 Stable overall next Acute blood loss anemia, post-op, vs. dilutional pre-op Hgb 11.8 , current Hgb 10.3 - cont. to monitor 12/20 Hemoglobin 9.6 Repeat tomorrow Chronic DVT will defer to Dr. Khan when he feels comfortable resume lovenox/warfarin bridge - per ortho plan to resume anticoag. at least 72 hrs after surgery per [facility]: Lovenox Bridge: POD #1 @ 8 p.m. and warfarin 10mg in p.m. POD #2: Lovenox 80mg BID; Warfarin 5mg in p.m. continue lovenox bridge and warfarin 5mg until INR > 2 12/20 May be able to restart Coumadin with Lovenox bridge as per Ortho tomorrow postop day #3 CKD-3 baseline cr 1.5 avoid nephrotoxic agents HTN chronic, stable HLD chronic, stable continue statin TYESHA chronic, stable continue cpap DVT ppx: SCDs, teds for now, lovenox/warfarin on hold at discretion of ortho Dispo: per primary FULL CODE PCP: Dr. Vaughn Thank you for this consultation. We will follow the patient with you during their hospital stay. You can reach a member of the [facility] Hospitalist Team 24/04 via hospitalist role on tiger text. Admission and Anticipated Discharge Date Admission Date: December 19, 2023 Subjective Follow-up status post back surgery, etc. Seen resting in bed, comfortable, no distress States he feels fine overall Minimal discomfort over incision site Ambulating in the hallways without problems no chest pain, dyspnea, palpitations, dizziness No other new symptom Review of Systems Review of Systems: all noted and negative except for above Physical Exam Physical Exam: General- oriented x 3, not in distress, speaks in sentences with no effort or accessory muscle use Eyes- anicteric Neck- no JVD Lungs- clear breath sounds bilaterally, no rales/wheezes Heart- normal rate, regular rhythm; no murmurs Abdomen- normal bowel sounds, nondistended, soft, nontender Extremities- no pretibial edema, no calf tenderness Neuro- alert, oriented x 3; no gross focal neurologic deficits Skin- warm & dry Results & Data Results & Data Vital Signs (Past 12 Hours) Vital Signs Temp Pulse Resp BP BP Pulse Ox O2 Del Method 12/21/23 15:23 36.6 C 71 127/64 91 Room Air 12/21/23 07:21 36.6 C 71 18 121/69 95 Room Air all noted and reviewed including below
[2023-12-21] MEDS: POT PHOSPHATE MONOBASIC W/ SOD TAB PO SCH (18:30)
[2023-12-21] MEDS: MAGNESIUM OXIDE 400 MG TAB PO SCH (19:43)
--- NOTE | 2023-12-22 10:04 | Discharge Summary ---
Date of Service December 22, 2023 Admission HPI Per Admitting Provider This is a 83-year-old male who presents chronic persistent back and leg pain and pain since course of nonoperative care is here for surgical invention. Principal Diagnosis Lumbar spinal stenosis with neurogenic claudication Discharge Data Allergies Allergy/AdvReac Type Severity Reaction Status Date / Time sulfamethoxazole AdvReac Intermediate Decreased Verified 12/19/23 08:22 [From Bactrim] kidney function trimethoprim [From Bactrim] AdvReac Intermediate Decreased Verified 12/19/23 08:22 kidney function Consultations 12/19/23 13:59 Consult Hospitalist Routine Procedures Performed Operation Date: 12/19/23 09:25 Actual Procedures p L3-S1 Decompresion and Fusion, Spinal Cord Monitoring(Not Applicable) - Mg Khan DO Ordered Studies 12/19/23 [place] lumbar spine 2-3V Routine 12/19/23 15:07 US venous duplex leg [US venous doppler LE RT] Routine Hospital Course (1) Neurogenic claudication due to lumbar spinal stenosis: Patient had 1 lumbar decompression fusion tolerated this well was taken to orthopedic for postoperative. Postop he progressed appropriately. Marked improvement of his leg symptoms eccentric to testing. RENETTA drain decreased appropriately. Excellent strength testing. Simply discharged home. Discharge orders instructions from the chart for further review. Total Time Total Time Spent Total Time Spent (In Minutes): 20 minutes Discharge Plan Discharge Items Patient Disposition: Home - Self-Care Reason For Visit: Spondylolisthesis of Lumbar Region, Spinal Stenosi Discharge Diagnosis: Lumbar spinal stenosis with neurogenic claudication Activity: As commented below Non-emergency contact: Primary Care Provider Call non-emergency contact if: you have any medication questions Follow-up/Referrals: Ventura Vaughn MD [Primary Care Provider] - Diet: Regular Addtl Attending Provider Instructions: ACTIVITY RECOMMENDATIONS: SELF CARE INSTRUCTIONS AFTER THORACIC/LUMBAR FUSIONS 1. You may walk to your tolerance. It is good exercise for your legs and back. Expect some back and intermittent leg aches and pains. 2. You may perform "counter-top" level activities (make a sandwich, ethan with a project, etc.). 3. No bending or lifting of more than 10 pounds or back twisting of any nature (roll like a log when turning in bed). 4. You may ride in a car for 20-30 minutes at a time. No driving until after your first visit with your doctor. 5. Frequent changes of position and restricting sitting to 30 minutes at a time will help limit the amount of back spasms and stiffness you may experience. 6. You may discontinue the use of ambulatory aids (cane, crutches, etc.) once your strength and confidence allow. 7. You may rn examiner the shower and let water strike your incision when you arrive home at least once daily. Do not take a tub bath, sit in a hot tub or go into a swimming pool until after your first recheck in the office. SPECIAL CARE INSTRUCTIONS: VERY IMPORTANT TO READ AND REVIEW A. Your surgical incision has been closed with a cosmetic suture under the skin that will dissolve in about 6 weeks. In 14 days, you can use a pair of clean scissors and cut the suture that is left outside of the skin at the ends of your incision. 1. The small skin tapes can be removed 7 days after surgery if they have not fallen off by that point. 2. You may keep the wound open to air as much as possible to promote healing after post-op day number 5 unless told otherwise by your doctor. 3. If you think the wound looks like it is becoming infected (redness or worsening drainage) and/or you are experiencing fever, chill or worsening back pain and muscle spasms, contact the office so that we may evaluate you as soon as possible. B. Complications are uncommon, but please contact us if you have any signs or symptoms of: 1. wound infection (fever higher than 102.5 degrees F, redness, separation of wound, drainage, or increasing pain from the incision) 2. blood clots in legs (pain, swelling, redness and warmth in legs) 3. urinary tract infection (fever higher than 102.5 degrees F, burning upon urination or increased frequency of urination) 4. nerve problems (inability to walk on your toes or heels, numbness, loss of bowel or bladder control) 5. any other symptoms that concern you C. Please call the office at if you have any concerns or questions about your operation or recovery. D. No smoking! Smoking drastically decreases the chance of a solid fusion. E. Do not take any anti-inflammatory medications (Indocin, Advil, Motrin, Aspirin, Naprosyn, etc.) as these may inhibit the chance of a solid fusion. Tylenol is okay to take for pain. MANAGING PAIN AFTER SPINAL SURGERY 1. Narcotic medication is intended for short-term use and will be provided for surgical pain. Surgical pain usually lasts for a period of 4-6 weeks. Narcotic medication includes Percocet, Vicodin, Darvocet, Tylenol #3 or Lortab. 2. Longer-term pain is more appropriately treated with non-narcotic medication such as Tylenol ES. 3. Muscle spasm is not appropriately treated with narcotics. Muscle relaxers such as Soma, Flexeril or Skelaxin can be used along with Tylenol ES. 4. Remember that we all live with some "aches and pains". This is not unusual or uncommon after an injury or as we get older. a. Back pain is expected and may include muscle spasms for 4 to 6 weeks after surgery. The pain should gradually improve. If the pain worsens for no apparent reason, please contact the office. b. Intermittent leg pain may also be experienced and should not be concerned about unless it worsens for no apparent reason. If so, please contact the office. 5. We will provide appropriate medication within the normal guidelines of their prescribed use. We will also be very cautious and aware of potential abuse and extended duration of patients' medication needs. a. Pain medications are for your comfort and to assist with sleep and rest so that the tissue can heal. They are not provided in order to return to normal activity and should not be used through the day. To do so or worsening pain at night can result from ongoing tissue damage and development of tolerance to the prescribed medicine. 6. Please allow 2-3 days to process refills. Prescriptions will not be mailed but must be picked up at the office. FOLLOW UP VISIT: Keep your scheduled follow-up appointment. Any questions, please call the office at . Pending Studies at Discharge: No Stand-Alone Forms: My [employer], Smoking Cessation Medications and DC Order Prescriptions: New tramadol 50 mg tablet 50 mg PO Q6H PRN (Reason: pain, moderate) Qty: 30 0RF oxycodone 5 mg tablet 5 mg PO Q6H PRN (Reason: pain) Qty: 30 0RF Continued atorvastatin 10 mg Tablet 10 mg PO HS docusate sodium 50 mg Capsule 50 mg PO QAM allopurinol 100 mg Tablet 100 mg PO BID acetaminophen [Tylenol Extra Strength] 500 mg Tablet 1,000 mg PO BID prednisolone acetate 1 % Drops,Suspension 1 drp OPB HS warfarin 5 mg Tablet See Rx Instructions .ROUTE .COMPLEX Rx Instructions: TAKES 2.5 MG ON MONDAY EVENINGS, THEN 5 MG ALL OTHER EVENINGS. losartan 25 mg Tablet 50 mg PO QAM Hold Instructions: Resume on 03/06/23. omeprazole 20 mg Capsule,Delayed Release(Dr/Ec) 20 mg PO DAILYBB gabapentin 100 mg Capsule 200 mg PO BID cholecalciferol (vitamin D3) [Vitamin D3] 25 mcg (1,000 unit) Capsule 25 mcg PO Q OTHER DAY omega-3 fatty acids-fish oil 684-1,200 mg Capsule,Delayed Release(Dr/Ec) 1 cap PO BID Metamucil 3.4 gram/5.4 gram Powder 1 tbsp PO BID Rx Instructions: mix into at least 8 oz of water or juice before administering cyanocobalamin (vitamin B-12) [Vitamin B-12] 1,000 mcg Tablet 1,000 mcg PO 3XWK coenzyme Q10 [CoQ-10] 100 mg Capsule 100 mg PO QAM Super Enzyme [id number] mg Capsule 1 cap PO BID multivitamin Tablet 1 tab PO DAILY Discharge Orders: Discharge Order (Routine); Ordered 12/22/23 Ordered By: Mg Khan Admission Data Admit Date/Time: 12/19/23 12:24 Attending Provider: Mg Khan Admit Provider: Mg Khan Primary Care Provider: Ventura Vaughn Other Providers: Marianna Dee; Alli Garcia
[2023-12-22 10:19] LABS: Basophils # (auto) 0.01 K/uL (0.00-0.20); Basophils % (auto) 0.1 %; Hematocrit (blood only) 28.9 % (42.0-52.0); Hemoglobin 9.6 g/dl (14.0-18.0); Immature Granulocytes # (auto) 0.16 K/uL (0.01-0.20); Immature Granulocytes % (auto) 1.7 %; Lymphocytes # (auto) 0.96 K/uL (1.20-3.40); Lymphocytes % (auto) 10.4 %; Mean Corpuscular Hemoglobin 29.3 pg (25.0-34.0); Mean Corpuscular Hgb Conc 33.2 g/dL (32.0-36.0); Mean Corpuscular Volume 88.1 fL (80.0-100.0); Mean Platelet Volume 10.8 fL (9.4-12.4); Monocytes # (auto) 2.18 K/uL (0.11-0.59); Monocytes % (auto) 23.7 %; Neutrophils % (auto) 64.1 %; Platelet Count 111 K/uL (130-400); RDW Coefficient of Variation 14.5 % (11.5-14.5); RDW Standard Deviation 46.5 fL (36.4-46.3); Red Blood Count 3.28 M/uL (4.70-6.10); White Blood Count 9.21 K/ul (4.8-10.8)
[2023-12-22 10:34] LABS: Calcium 8.3 mg/dl (8.6-10.3); Creatinine Clr Calc Pharmacy 49.8 ml/min; Est GFR (African American) 59.3 ml/min; Est GFR (Non-African American) 51.2 ml/min; Magnesium 1.5 mg/dl (1.7-2.4); Phosphorus 2.6 mg/dl (2.5-4.9); Potassium 3.9 mmol/L (3.5-5.1)
--- NOTE | 2023-12-22 14:54 | Hospitalist Progress Note ---
Date of Service December 22, 2023 Assessment & Plan (1) Neurogenic claudication due to lumbar spinal stenosis: (2) Chronic deep vein thrombosis (DVT): (3) CKD (chronic kidney disease), stage III: (4) HTN (hypertension): (5) Dyslipidemia: (6) TYESHA (obstructive sleep apnea): Plan per previous hospitalist notes with addendum: Neurogenic claudication, lumbar spinal stenosis S/P L3-S1 lumbar decompression/fusion tolerated procedure well pain/wound management per orthopedics activity and therapy as prescribed by ortho 12/21 Stable overall Acute blood loss anemia, post-op, vs. dilutional pre-op Hgb 11.8 , current Hgb 10.3 - cont. to monitor 12/21 Hemoglobin 9.6 Chronic DVT will defer to Dr. Khan when he feels comfortable resume lovenox/warfarin bridge - per ortho plan to resume anticoag. at least 72 hrs after surgery per [facility]: Lovenox Bridge: POD #1 @ 8 p.m. and warfarin 10mg in p.m. POD #2: Lovenox 80mg BID; Warfarin 5mg in p.m. continue lovenox bridge and warfarin 5mg until INR > 2 12/20 May be able to restart Coumadin with Lovenox bridge as per Ortho Went over Coumadin clinic instructions with patient He verbalized understanding and agreement Patient says he has a supply of Lovenox at home Coumadin clinic notified by our nurse navigator to contact patient on Monday for further advice regarding blood work and Coumadin dose Discussed plan with discharging nurse as well CKD-3 baseline cr 1.5 avoid nephrotoxic agents HTN chronic, stable HLD chronic, stable continue statin TYESHA chronic, stable continue cpap DVT ppx: SCDs, teds for now, lovenox/warfarin on hold at discretion of ortho Dispo: per primary FULL CODE PCP: Dr. Vaughn Thank you for this consultation. We will follow the patient with you during their hospital stay. You can reach a member of the [facility] Hospitalist Team 24/04 via hospitalist role on tiger text. Admission and Anticipated Discharge Date Admission Date: December 19, 2023 Subjective Follow-up for back surgery, etc Seen resting in bed, comfortable States he feels fine overall no chest pain, dyspnea, palpitations, dizziness Minimal back pain No other new symptoms Review of Systems Review of Systems: all noted and negative except for above Physical Exam Physical Exam: General- oriented x 3, not in distress, speaks in sentences with no effort or accessory muscle use Eyes- anicteric Neck- no JVD Lungs- clear breath sounds bilaterally, no rales/wheezes Heart- normal rate, regular rhythm; no murmurs Abdomen- normal bowel sounds, nondistended, soft, nontender Extremities- no pretibial edema, no calf tenderness Neuro- alert, oriented x 3; no gross focal neurologic deficits Skin- warm & dry Results & Data Results & Data Vital Signs (Past 12 Hours) Vital Signs Temp Pulse Resp BP BP Pulse Ox O2 Del Method 12/22/23 07:25 36.7 C 80 18 161/86 H 94 Room Air 12/22/23 06:09 188/84 H all noted and reviewed including below
== END 2023-12-22 13:57 | disposition home or self-care (01) | DRG 454 ==
LOC: ASU 07:49 → 3E 12:24